=== PATIENT | female | born 1950 | race Caucasian/White ===

== ENCOUNTER 2016-08-05 15:04 | Inpatient (IN) ==
[2016-08-05] MEDS ORDERED: ASPIRIN PO STA (15:18)
--- NOTE | 2016-08-05 15:46 | ED EKG INTERP ---
EKG Interpretation - EKG Time of EKG reading by physician:: 15:22 EKG Read and Signed by:: Armen Beckwith EKG Interpretation (*Must complete 3 of following elements*): Abnormal (Minimal voltage critiria for LVH, may be normal varient, Borderline ECH\g) Rate: 89 Rhythm: Normal Sinu rhythm Comments: Borderline ECG Physician Attestation
[2016-08-05 15:56] LABS: BASO% 0.1 % (0.0-0.8); EOS# 0.01 X1000 (0.0-0.7); EOS% 0.1 % (0.0-10.0); HEMOGLOBIN 11.3 g/dL (12.0-16.0); IMM GRAN# 1.46 X1000 (0.0-0.04); IMM GRAN% 8.6 % (0.0-0.5); LYMPH# 0.51 X1000 (1.2-3.4); MANUAL DIFF NEEDED? NO; MCH 33.3 PG (27-31); MCHC 36.5 g/dL (33-37); MCV 91.4 FL (81-99); MONO# 1.34 X1000 (0.11-0.59); MONO% 7.9 % (1.7-9.3); MPV 12.1 FL (7.4-10.4); NEUT% 80.3 % (42.2-75.2); PLT 87 X1000 (130-400); RBC 3.39 XMIL (4.2-5.4)
--- NOTE | 2016-08-05 15:57 | Diag Imaging Result Document ---
PROCEDURE NAME: CHEST-2 VIEWS - 08/05/2016 CHEST, 2 VIEWS: COMPARISON: 09/24/2015. FINDINGS: The lungs are normally expanded and clear. Heart size and mediastinal contours are normal. No pneumothorax or pleural effusion. IMPRESSION: Negative exam.
--- NOTE | 2016-08-05 15:57 | EKG Report ---
Test Performed on : 08/05/2016 3:22:30 PM Test Reason : CHEST PAIN Blood Pressure : / mmHG Vent. Rate : 089 BPM Atrial Rate : 089 BPM P-R Int : 134 ms QRS Dur : 098 ms QT Int : 362 ms P-R-T Axes : 050 002 075 degrees QTc Int : 440 ms Normal sinus rhythm. Minimal voltage criteria for LVH, may be normal variant Borderline ECG When compared with ECG of 07-JAN-2016 12:36, Non-specific change in ST segment in Lateral leads Unconfirmed Result
[2016-08-05 16:05] LABS: URINE SOURCE CATH
[2016-08-05 16:17] LABS: INR 1.07 (0.86-1.15); PROTIME 14.2 Seconds (12.1-15.5)
[2016-08-05 16:18] LABS: PTT PL 30.6 Seconds (22.6-43.9)
[2016-08-05 16:38] LABS: BILIRUBIN URINE NEGATIVE (NEGATIVE); BLOOD URINE 4+ (NEGATIVE); COLOR YELLOW; GLUCOSE URINE NEGATIVE (NEGATIVE); LEUKOCYTES URINE 2+ (NEGATIVE); NITRITE URINE POSITIVE (NEGATIVE); PROTEIN URINE 1+(30 mg/dL) mg/dL (NEGATIVE); SP GRAVITY URINE 1.005; UROBILINOGEN URINE NORMAL
[2016-08-05 16:42] LABS: CLARITY VERY CLOUDY (CLEAR); URINE RBC TNTC /HPF (<10); URINE WBC TNTC /HPF (<10)
[2016-08-05 16:43] LABS: URINE CULTURE PL NEEDED? YES; URINE EPITHELIAL CELLS <10 /HPF (<10)
[2016-08-05 17:26] LABS: ALBUMIN 2.6 g/dL (3.5-5.0); MAGNESIUM 1.6 mg/dL (1.5-2.7); POTASSIUM 3.2 mmol/L (3.5-5.1); TOTAL BILIRUBIN 0.5 mg/dL (0.20-1.00); TOTAL PROTEIN 5.2 g/dL (6.3-8.3)
[2016-08-05 17:28] LABS: CALCIUM 8.7 mg/dL (8.8-10.2)
--- NOTE | 2016-08-05 17:42 | PROVIDER DOCUMENTATION ---
HPI-General Adult - History of Present Illness -Gen Adult Nature of Presenting Problems: PT is 66 Y/o F presents to the ED with the complain of feeling weak. Pt states that she fell from from bed week ago. Pt uses walker due to prior hip sx and back sx. Pt states she takes multiple pain meds and psych meds. Pt denies N/V/ D. Location of Pain/Injury: reports: generalized Pain Radiation: reports: no radiation Quality of Pain: reports: aching Severity: reports: mild Onset/Duration: reports: 1 week ago Timing: reports: still present Context/Activities at Onset: reports: none Modifying Factors: improves with: nothing Associated Symptoms: reports: weakness Similar Symptoms Previously?: Yes Recently seen or treated by another doctor?: Yes <Cintia Fowler - Last Filed: 08/05/16 17:56> <Himanshu Jensen - Last Filed: 08/05/16 19:19> - General Chief Complaint: Weakness Stated Complaint: weak Time Seen by Provider: 08/05/16 17:14 Allergies/Adverse Reactions: Patient Allergies Allergy/AdvReac Type Severity Reaction Status Date / Time olanzapine [From Zyprexa] AdvReac Unknown Verified 08/05/16 15:16 Home Medications: Home Medication List Medication Instructions Recorded Confirmed Last Taken Type Divalproex [Depakote] 1,500 mg PO QHS 09/23/15 01/03/16 01/02/16 History Duloxetine [Cymbalta] 60 mg PO BID 09/23/15 01/03/16 01/02/16 History Ibuprofen/Famotidine [Duexis 1 each PO BID 09/23/15 01/03/16 01/02/16 History 800-26.6 mg Tablet] Lubiprostone [Amitiza] 24 microgm PO BID 09/23/15 01/03/16 01/02/16 History Mv/FA/Dha/Epa/Fish/Jose/D3/Gink 1 each PO DAILY 09/23/15 01/03/16 01/02/16 History [Women 50 + Vitapak Combo Pack] [place]-3 Acid Ethyl Esters [Lovaza] 2 gm PO BID 09/23/15 01/03/16 01/02/16 History PRAVAstatin [Pravachol] 40 mg PO DAILY 05/09/0401/03/16 01/02/16 History Ropinirole HCl 5 mg PO HS 09/23/15 01/03/16 01/02/16 History Solifenacin Succinate [Vesicare] 10 mg PO DAILY 09/23/15 01/03/16 01/02/16 History Terbinafine [Lamisil] 250 mg PO DAILY 09/23/15 01/03/16 01/02/16 History Trazodone E.r. [Oleptro ER] 300 mg PO HS 09/23/15 01/03/16 01/02/16 History Walker [Ultra-Light Rollator] 1 each MC DAILY #1 each 09/23/15 01/03/16 Rx Albuterol 2.5MG/Ipratrop 0.5MG 3 ml INH Q4H PRN PRN #0 neb 09/28/15 01/03/16 Rx [Duoneb (A & A)] Buprenorphine [Butrans] 1 each TD DIRECTED #30 09/28/15 01/03/16 01/02/16 Rx patch.tdwk Hydrocodone/APAP 7.5 mg/325 mg 1 each PO Q4H PRN PRN #45 tablet 09/28/1501/02/16 Rx [[place]-7.5] Buspirone HCl [Buspar] 5 mg PO DAILY 01/03/16 01/03/16 01/02/16 History Olanzapine [Zyprexa] 5 mg PO HS 01/03/16 01/03/16 01/02/16 History Menthol/Camphor/Antiarth Cb#1 10 ml TP BID #1 cream.ml. 01/07/16 Unknown Rx [[place] Arthritis Rub Cream] Review of Systems - Adult - REVIEW OF SYSTEMS - ADULT Constitutional: reports: no symptoms reported Eyes: reports: no symptoms reported Ears, Nose, Mouth & Throat: reports: no symptoms reported Cardiovascular: reports: no symptoms reported Respiratory: reports: no symptoms reported Gastrointestinal: reports: no symptoms reported Genitourinary: reports: no symptoms reported Musculoskeletal: reports: muscle weakness. denies: back pain, joint pain Integumentary: reports: no symptoms reported Neurological: reports: no symptoms reported Psychiatric: reports: no symptoms reported Endocrine: reports: no symptoms reported Hematologic/Lymphatic: reports: no symptoms reported Allergic/Immunologic: reports: no symptoms reported All Other Systems: Reviewed and Negative <Cintia Fowler - Last Filed: 08/05/16 17:56> Past History - Adult - PAST MEDICAL HISTORY-ADULT Review of Records: reports: Nursing Assessment Review, Medications Reviewed, Social history reviewed & non-contributory. Major Childhood Illnesses: reports: denies history Cardiovascular: reports: HTN, hyperlipidemia Respiratory: reports: denies history Gastrointestinal: reports: GERD, IBS Obstetrical/Gynecological: reports: denies history Genitourinary: reports: denies history Musculoskeletal: reports: denies history Neurological: reports: denies history Psychiatric: reports: bipolar, depression Endocrine/Immune: reports: denies history Other Conditions: reports: denies history - PRIOR SURGERIES/PROCEDURES Surgical/Procedure History: reports: cholecystectomy, hysterectomy, joint replacement (L total hip), back/neck - IMMUNIZATION STATUS Childhood Immunizations: See Nurse Assessment Flu Vaccine: See Nurse Assessment - FAMILY HISTORY Family History: reviewed, not pertinent - SOCIAL HISTORY Smoking: cigarettes, less than 1 pack/day Provider spent 3-5 mins advising pt. on dangers of tobacco.: Discussed manners to quit use, and f/u contacts for add'l counseling. Substance Use: denies Living Situation: alone <Cintia Fowler - Last Filed: 08/05/16 17:56> Physical Exam-General - PHYSICAL EXAM-ADULT Initial Vital Signs Reviewed: Yes - CONSTITUTIONAL General Appearance: alert, no apparent distress. negative: appears well (ill in appearance) - EYES Eyes: PERRL/EOMI, pale conjunctivae - HEAD, EARS, NOSE, MOUTH & THROAT HENMT: normocephalic/atraumatic. negative: moist mucous membranes (dry) - NECK Neck: non-tender, full range of motion, supple - RESPIRATORY Respiratory: chest non-tender, lungs clear, normal breath sounds, no pleuratic chest pain, no respiratory distress, no accessory muscle use - CARDIOVASCULAR Cardiovascular: normal peripheral pulses, regular rate, rhythm, no edema, no gallop, no JVD, no murmur - GASTROINTESTINAL (ABDOMEN) Abdominal Exam: normal bowel sounds, non tender, soft - MUSCULOSKELETAL Back Exam: normal inspection, no CVA tenderness, no vertebral tenderness Extremity: normal range of motion, no pedal edema, no calf tenderness Peripheral Pulses: dorsalis-pedis (R): 2+, dorsalis-pedis (L): 2+ - SKIN Integumentary: normal turgor, pallor - NEUROLOGIC Neurologic: grossly normal - PSYCHIATRIC Psych/Mental Status: normal mood/affect, oriented x 3 <Raine Fowleromi - Last Filed: 08/05/16 17:56> Progress - PLAN OF CARE/RESULTS Progress/Plan/Lab Results: Laboratory Tests 08/05/16 08/05/16 08/05/16 15:44 15:44 15:44 WBC RBC Hgb Hct MCV MCH MCHC RDW Std Deviation Plt Count MPV Immature Gran % (Auto) Neut % (Auto) Lymph % (Auto) [place] % (Auto) Eos % (Auto) Baso % (Auto) Immature Gran # (Auto) Neut # (Auto) Lymph # (Auto) [place] # (Auto) Eos # (Auto) Baso # (Auto) PT INR APTT (Factor Assay) D-Dimer Sodium 116 L* Potassium 3.2 L Chloride 77 L Carbon Dioxide 26 Anion Gap 13 BUN 24 H Creatinine 1.4 H Estimated GFR/1.73 m2 38 BUN/Creatinine Ratio 17 Glucose 99 Calculated Osmolality 239 Calcium 8.7 L Magnesium 1.6 Total Bilirubin 0.50 AST 36 H ALT 17 Alkaline Phosphatase 131 H Creatine Kinase 53 Troponin T < 0.010 Vxa-F-Ufbvqawblgb Pept 3346 H Total Protein 5.2 L Albumin 2.6 L Globulin 3.0 Albumin/Globulin Ratio 1.0 Urine Source Urine Color Urine Clarity Urine pH Ur Specific [place] Urine Protein Urine Ketones Urine Blood Urine Nitrite Urine Bilirubin Urine Urobilinogen Urine Microscopic RBC Urine WBC Urine Microscopic WBC Ur Epithelial Cells Urine Bacteria Urine Glucose 08/05/16 08/05/16 08/05/16 15:44 15:44 15:53 WBC 16.99 H RBC 3.39 L Hgb 11.3 L Hct 31.0 L MCV 91.4 MCH 33.3 H MCHC 36.5 RDW Std Deviation 11.2 L Plt Count 87 L MPV 12.1 H Immature Gran % (Auto) 8.6 H Neut % (Auto) 80.3 H Lymph % (Auto) 3.0 L [place] % (Auto) 7.9 Eos % (Auto) 0.1 Baso % (Auto) 0.1 Immature Gran # (Auto) 1.46 H Neut # (Auto) 13.65 H Lymph # (Auto) 0.51 L [place] # (Auto) 1.34 H Eos # (Auto) 0.01 Baso # (Auto) 0.02 PT 14.2 INR 1.07 APTT (Factor Assay) 30.6 D-Dimer 2.45 H Sodium Potassium Chloride Carbon Dioxide Anion Gap BUN Creatinine Estimated GFR/1.73 m2 BUN/Creatinine Ratio Glucose Calculated Osmolality Calcium Magnesium Total Bilirubin AST ALT Alkaline Phosphatase Creatine Kinase Troponin T Liq-P-Mscryaxgoso Pept Total Protein Albumin Globulin Albumin/Globulin Ratio Urine Source CATH Urine Color YELLOW Urine Clarity VERY CLOUDY A Urine pH 6.0 Ur Specific [place] 1.005 Urine Protein 1+(30 mg/dL) A Urine Ketones NEGATIVE Urine Blood 4+ Urine Nitrite POSITIVE A Urine Bilirubin NEGATIVE Urine Urobilinogen NORMAL Urine Microscopic RBC TNTC A Urine WBC 2+ A Urine Microscopic WBC TNTC A Ur Epithelial Cells <10 Urine Bacteria 4+ Urine Glucose NEGATIVE Orders Category Date Time Status Cardiac Monitoring DIRECTED Care 08/05/16 15:18 Active CHEST-2 VIEWS [RAD] Stat Exams 08/05/16 15:18 Completed CBC WITH ELECTRONIC DIFF [HEME] Stat Lab 08/05/16 15:44 Completed CK PROFILE [SP CHEM] Stat Lab 08/05/16 15:44 Completed COMPREHENSIVE METABOLIC PANEL [CHEM] Stat Lab 08/05/16 15:44 Completed D-DIMER PL [COAG] Stat Lab 08/05/16 15:44 Completed Depakote [VALPROIC ACID] [TDM] Stat Lab 08/05/16 15:44 Received MAGNESIUM [CHEM] Stat Lab 08/05/16 15:44 Completed PRO B-NATRIURETIC PEPTIDE Stat Lab 08/05/16 15:44 Completed PROTIME WITH INR PL [COAG] Stat Lab 08/05/16 15:[address] [COAG] Stat Lab 08/05/16 15:44 Completed TROPONIN T Stat Lab 08/05/16 15:44 Completed UA [URINALYSIS PL W/POSS RFLX CULT] [URINALYSIS] Stat Lab 08/05/16 15:53 Completed URINE CULTURE [RM] Routine Lab 08/05/16 16:43 Ordered Aspirin Med 08/05/16 15:18 Discontinued 325 mg PO STAT STA EKG [EKG] Stat Ther 08/05/16 15:18 Draft Vital Signs - 24 hr 08/05/16 08/05/16 15:13 16:34 Temperature 97 F L Pulse Rate 90 86 Respiratory 20 18 Rate Blood Pressure 131/69 112/045 O2 Sat by Pulse 98 99 Oximetry - XRAY 1 XRAY: Bilateral XRAY Study: Chest Impression: Normal XRAY Interpretation: negative exam - CONSULTS/PCP/HOSPITALIST Notification #1 *Consult/PCP/Hospitalist*: Dr. Swift Time Discussed: 17:54 (Dr. Swift states will see in ED ) Reason/Comments: Dr. Beckwith consults with Dr. Swift about Pt Consult Disposition: Will see in ED - CHANGE OF SHIFT REPORT (ED Provider) Report Given and Care Transferred to:: Dr. Jean Time of Transfer: 17:56 Items Pending: Labs <Cintia Fowler - Last Filed: 08/05/16 17:56> Departure <Cintia Fowler - Last Filed: 08/05/16 17:56> - Departure Time of Disposition Order: 19:17 Certified Medical Emergency: Emergent <Himanshu Jensen - Last Filed: 08/05/16 19:19> - Departure DIAGNOSIS: Generalized weakness, Hyponatremia UTI (urinary tract infection) Qualifiers: Urinary tract infection type: site unspecified Hematuria presence: without hematuria Qualified Code(s): N39.0 - Urinary tract infection, site not specified Disposition: ADMITTED INPATIENT 09 Condition: Good Referrals: None,PCP [Primary Care Provider] - Attestation - Scribe Verification/Attestation Scribe:: Cintia Fowler Acting as Scribe for:: Armen Beckwith Scribe documention review:: This chart was documented by a scribe and accurately reflects the service the provider performed and the decisions made by the provider. - Scribe Verification/Attestation #2 Shift Change Time: 17:56 Scribe Name: Himanshu Jensen Acting as Scribe for:: Brendon Jean <Cintia Fowler - Last Filed: 08/05/16 17:56> - Scribe Verification/Attestation Scribe:: Himanshu Jensen Acting as Scribe for:: Brendon Jean Scribe documention review:: This chart was documented by a scribe and accurately reflects the service the provider performed and the decisions made by the provider. <Himanshu Jensen - Last Filed: 08/05/16 19:19> Physician Attestation
[2016-08-05] MEDS ORDERED: LEVAQUIN PO ONE (18:08)
[2016-08-05] MEDS: NS 1,000 ML IV SCH (18:15)
[2016-08-05] MEDS ORDERED: NON-FORMULARY MED (Buprenorphine [Butrans] 1 EACH) TD SCH (18:15)
[2016-08-05] MEDS ORDERED: AMITIZA PO SCH (21:00)
[2016-08-05] MEDS ORDERED: DEPAKOTE PO SCH (21:00)
[2016-08-05 21:11] LABS: URINE SOURCE CATH
[2016-08-05 21:19] LABS: BILIRUBIN URINE NEGATIVE (NEGATIVE); BLOOD URINE 3+ (NEGATIVE); CLARITY VERY CLOUDY (CLEAR); COLOR YELLOW; GLUCOSE URINE NEGATIVE (NEGATIVE); LEUKOCYTES URINE 2+ (NEGATIVE); NITRITE URINE POSITIVE (NEGATIVE); PROTEIN URINE 1+(30 mg/dL) mg/dL (NEGATIVE); SP GRAVITY URINE 1.005; UROBILINOGEN URINE NORMAL
[2016-08-05] MEDS: LOVAZA PO SCH (21:20)
[2016-08-05 22:10] LABS: URINE RBC TNTC /HPF (<10)
[2016-08-05 22:12] LABS: URINE CULTURE PL NEEDED? YES; URINE EPITHELIAL CELLS <10 /HPF (<10); URINE WBC TNTC /HPF (<10)
[2016-08-06] MEDS: NS 1,000 ML IV SCH ×4 (01:00→22:05)
[2016-08-06 06:37] LABS: HEMATOCRIT 29.5 % (37.0-47.0); HEMOGLOBIN 10.5 g/dL (12.0-16.0); MCH 32.5 PG (27-31); MCHC 35.6 g/dL (33-37); MCV 91.3 FL (81-99); MPV 12.6 FL (7.4-10.4); RBC 3.23 XMIL (4.2-5.4)
[2016-08-06 06:38] LABS: CALCIUM 8.2 mg/dL (8.8-10.2)
[2016-08-06 06:42] LABS: POTASSIUM 2.6 mmol/L (3.5-5.1)
[2016-08-06] MEDS: LOVAZA PO SCH ×2 (08:49→22:04)
[2016-08-06] MEDS ORDERED: KLOR-CON PO ONE (11:25)
[2016-08-06] MEDS ORDERED: VITAMIN D PO SCH (11:30)
[2016-08-06] MEDS: AMITIZA PO SCH ×2 (12:27→18:04)
[2016-08-06] MEDS: POTASSIUM CHLORIDE 20 MEQ/SWI 100 ML IV SCH ×2 (12:27→17:33)
--- NOTE | 2016-08-06 14:18 | PROGRESS NOTE ---
DATE: 08/06/2016 SUBJECTIVE: The patient is feeling a little bit better. She denies any cough and congestion currently. She denies any headaches, blurred vision. She denies any focalized numbness, tingling, and weakness. OBJECTIVE: Vital Signs: Reviewed. Temperature 97 degrees, pulse 95, respiratory 18, BP 119/45, saturation 95% on room air. General: Patient well developed, well nourished. She is currently in no real respiratory distress. She is awake, alert. Neck: Supple. CV: Regular rate. Chest: Relatively clear. Abdomen: Soft. Extremities: Moves all extremities. Neurologic: No changes. LABORATORY DATA: WBC 13, hemoglobin and hematocrit 10 and 29. Sodium 121, potassium 2.6, creatinine 1.3. Calcium 8.2. UA abnormal. ASSESSMENT: 1. Urinary tract infection. 2. Hypokalemia replace and recheck. We will replace IV and p.o. 3. Hyponatremia. Sodium continues to improve currently 121, was 116 on admit. 4. Leukocytosis improving, uncertain etiology likely secondary to acute bronchitis or her urinary tract infection for which she is on Levaquin. 5. Anemia of chronic disease. PLAN: We will move her out to the floor. She unfortunately is on several psychiatric medications that certainly could drop her sodium levels in addition to her psychogenic polydipsia. We will continue to follow. Her Depakote certainly could cause low sodium as can Remeron. We will hold this for now. We will continue her Movantik and her pain medication. We will continue Colace. Trazodone also can cause low sodium. We will hold this for now. She currently is on Cymbalta and Requip, which also can cause low sodium. We will hold each of these for now.
[2016-08-06] MEDS ORDERED: POTASSIUM CHLORIDE 20 MEQ/SWI 100 ML IV ONE (16:00)
--- NOTE | 2016-08-06 17:02 | HISTORY AND PHYSICAL ---
DATE OF : 1950. DATE OF ADMISSION: 08/05/2016. CHIEF COMPLAINT: Generalized weakness, states "I am weak all over." HISTORY OF PRESENTING ILLNESS: This is a 66-year-old female who presented to [facility] emergency room with complaints of feeling generalized weakness, stating "I am weak all over." States that she had fallen from her bed approximately a week ago and uses a walker due to a prior hip surgery and back surgery. Denied any nausea, vomiting, or diarrhea. Workup in the emergency room showed a sodium of 116, potassium 3.2, chloride 77. BUN was 24 with a creatinine of 1.4. She had a proBNP of 3,346, a white blood cell count of 16.99, a urinalysis that had positive nitrites, 2+ white blood cells, and 4+ bacteria. So, she is being admitted to the medical floor for further evaluation and treatment. PAST MEDICAL HISTORY: 1. Hypertension. 2. Hyperlipidemia. 3. Gastroesophageal reflux disease. 4. Irritable bowel. 5. Bipolar. 6. Depression. 7. Pelvic fracture. 8. Restless legs syndrome. 9. History of anorexia and bulimia. PAST SURGICAL HISTORY: 1. Cholecystectomy. 2. Hysterectomy. 3. Total hip. 4. Back and neck surgery. FAMILY HISTORY: Noncontributory. SOCIAL HISTORY: She is smoking about a half a pack of cigarettes a day and has done so for about 20 years. Denies any illicit drugs or alcohol use and currently living alone. ALLERGIES: Olanzapine. HOME MEDICATIONS: We will hold her Cymbalta 120 mg p.o. daily. 1. Ibuprofen 800 mg p.r.n. 2. Remeron 15 mg p.o. at bedtime. 3. Trazodone ER 300 mg p.o. at bedtime. 4. Citracal. 5. Vitamin D 200/251 p.o. daily. 6. Depakote 2000 mg p.o. daily. 7. Docusate sodium 1 p.o. daily. 8. Vitamin D2 50,000 units as directed. 9. Hydrocodone 7.5, 1 p.o. p.r.n. 10. Movantik 225 mg p.o. daily. 11. Lovaza 4 g p.o. daily. 12. Prilosec 40 mg p.o. daily. 13. Pravachol 40 mg p.o. daily. 14. 5 mg p.o. at bedtime. LABORATORY DATA: CBC: Showed a white blood cell count of 16.99, a hemoglobin of 11.3, hematocrit 31, platelets 87,000. Cardiac enzymes: PT and INR of 14.2 and 1.07 with a D-dimer of 2.45. Chem: Sodium of 116 potassium 3.2 chloride 77, CO2 26, BUN of 24, creatinine 1.4, glucose 99, magnesium 1.6. Creatine kinase of 53, troponin less than 0.010. Pro BMP of 3346. Urinalysis: With positive nitrites, 2+ white blood cells, 4+ bacteria. Valproic acid level: 58.40. DIAGNOSTIC STUDIES: Chest x-ray: Negative. EKG: Showed normal sinus rhythm at 89. REVIEW OF SYSTEMS: She denies any fever, chills, blurred vision, dizziness, chest pain, coughing, shortness of breath. She denied any constipation, diarrhea, burning, or hurting with urination. PHYSICAL EXAMINATION: VITALS: On arrival, she had a temperature of 97 degrees, pulse 90, respirations 20, blood pressure 131/69, saturating 98% on room air. GENERAL: This is a 66-year-old female lying in the bed. Answers questions appropriately. HEENT: Normocephalic and atraumatic. Pupils are equal, round, reactive to light. Extraocular movements are intact. Oropharynx and nares are clear. NECK: Supple. LUNGS: Clear to auscultation bilaterally with equal lung expansion and chest wall movement. HEART: With regular rate and rhythm. No murmurs, rubs, or gallops. ABDOMEN: Soft, nontender, nondistended. Bowel sounds are present x4 quadrants. EXTREMITIES: There is no clubbing, cyanosis, or edema. NEUROLOGICAL: The cranial nerves 2-12 appear grossly intact. ASSESSMENT: 1. Hyponatremia. 2. Acute kidney injury. 3. Urinary tract infection. 4. Hypertension. 5. History of bipolar depression. PLAN: 1. We are going to admit her to the Intensive Care Unit . 2. Placed on a regular diet. 3. Will obtain a urine culture. 4. Place her on normal saline at 150 mL an hour, Levaquin 500 mg p.o. every 24 hours. 5. Recheck CBC and a BMP in the a.m. 6. We will supplement her potassium. 7. Recheck labs. Dictated by VAN Graham for Jarret Swift MD
[2016-08-06] MEDS: LEVAQUIN PO SCH (18:34)
[2016-08-06 19:23] LABS: CALCIUM 8.4 mg/dL (8.8-10.2); POTASSIUM 3.7 mmol/L (3.5-5.1); TOTAL BILIRUBIN 0.3 mg/dL (0.20-1.00); TOTAL PROTEIN 4.7 g/dL (6.3-8.3)
[2016-08-06] MEDS: DEPAKOTE PO SCH (21:14)
[2016-08-06] MEDS: REQUIP PO SCH (21:15)
[2016-08-07] MEDS: NS 1,000 ML IV SCH ×4 (04:00→23:29)
[2016-08-07] MEDS: MOVANTIK PO SCH (06:25)
[2016-08-07] MEDS: PRILOSEC PO SCH (06:25)
[2016-08-07 06:41] LABS: CALCIUM 8.4 mg/dL (8.8-10.2); POTASSIUM 3.7 mmol/L (3.5-5.1)
[2016-08-07] MEDS: DUONEB (A & A) INH PRN (08:08)
[2016-08-07] MEDS: LOVAZA PO SCH ×2 (08:37→22:19)
[2016-08-07] MEDS: AMITIZA PO SCH ×2 (08:38→17:45)
[2016-08-07] MEDS: CITRACAL + D PO SCH (08:38)
[2016-08-07] MEDS: COLACE PO SCH (08:38)
[2016-08-07] MEDS ORDERED: LOVAZA PO SCH (09:00)
--- NOTE | 2016-08-07 10:51 | PROGRESS NOTE ---
DATE: 08/07/2016 SUBJECTIVE: The patient notes she is feeling a little bit better this morning. She is trying to eat breakfast and has currently eaten about 50% of her breakfast. She denies any chest pain, palpitations. Denies any fevers or chills. OBJECTIVE: Vital Signs: Reviewed. Temperature 98.1 degrees, pulse 105, respiratory 18, blood pressure 137/67, sat 95% on room air. General: Patient is well developed, well nourished. She is currently in no real respiratory distress. She is awake, alert. She is oriented. She is slow to respond, but does answer questions appropriately. HEENT: Normocephalic, atraumatic. Pupils equal, round, and reactive to light. Neck: Supple. Cardiovascular: Regular rate. Chest: Relatively clear. Abdomen: Soft, nondistended. Extremities: Moves all extremities. Neurologic: No changes. DIAGNOSTIC DATA: WBCs improving at 13. Hemoglobin and hematocrit stable at 10 and 29. Sodium better at 125, creatinine stable at 1.4. ASSESSMENT: 1. Hyponatremia. Continues to improve slightly. We will decrease her IV fluids to 75, to see if this will encourage her to eat and drink a little bit better. We will recheck in the a.m. 2. Acute renal failure. Serum creatinine is 1.4. This is slightly higher than her baseline of a year ago in December of 2015 and 0.9. Uncertain if this is new or if she has gradually declined. Will continue to follow. 3. Hypertension. 4. Bipolar depression. 5. Psychogenic polydipsia. PLAN: We will continue to follow. We will continue to hold her psych medications until her sodium levels have improved. We will also get an echo now that she is more stable, given her B- type natriuretic peptide was elevated recently.
[2016-08-07] MEDS: DURAGESIC 12 MICROGM/HR PATCH TD SCH (15:06)
[2016-08-07] MEDS: NICODERM PATCH TD PRN (15:07)
[2016-08-07 16:16] LABS: POTASSIUM 3.9 mmol/L (3.5-5.1)
[2016-08-07] MEDS: LEVAQUIN PO SCH (17:45)
[2016-08-07] MEDS: REQUIP PO SCH (22:16)
[2016-08-07] MEDS: PRAVACHOL PO SCH (22:17)
[2016-08-07] MEDS: DEPAKOTE PO SCH (22:18)
[2016-08-08 00:05] LABS: CALCIUM 8.9 mg/dL (8.8-10.2); POTASSIUM 3.5 mmol/L (3.5-5.1)
[2016-08-08] MEDS: PRILOSEC PO SCH (06:22)
[2016-08-08] MEDS: MOVANTIK PO SCH (06:25)
[2016-08-08 06:30] LABS: HEMATOCRIT 28.7 % (37.0-47.0); HEMOGLOBIN 10.4 g/dL (12.0-16.0); MCH 32.7 PG (27-31); MCHC 36.2 g/dL (33-37); MCV 90.3 FL (81-99); MPV 11.6 FL (7.4-10.4); PLT 94 X1000 (130-400); RBC 3.18 XMIL (4.2-5.4)
[2016-08-08 06:48] LABS: ALBUMIN 1.6 g/dL (3.5-5.0); CALCIUM 8.9 mg/dL (8.8-10.2); MAGNESIUM 1.8 mg/dL (1.5-2.7); POTASSIUM 3.7 mmol/L (3.5-5.1); TOTAL BILIRUBIN 0.4 mg/dL (0.20-1.00); TOTAL PROTEIN 4.3 g/dL (6.3-8.3)
[2016-08-08 06:58] LABS: BANDS 10 % (0-1); LYMPHS 2 % (21-51); MONO 2 % (1-9)
[2016-08-08] MEDS: LOVAZA PO SCH ×2 (08:16→20:36)
[2016-08-08] MEDS: AMITIZA PO SCH ×2 (08:16→16:45)
[2016-08-08] MEDS: SEPTRA DS PO SCH ×2 (08:16→20:37)
[2016-08-08] MEDS: CITRACAL + D PO SCH (08:16)
[2016-08-08] MEDS: COLACE PO SCH (08:16)
--- NOTE | 2016-08-08 08:18 | PROGRESS NOTE ---
DATE: 08/08/2016 SUBJECTIVE: Patient notes that she is feeling better. She is asking to go home. States that she is back to her baseline. Denies any cough, congestion. Denies any fevers or chills. PHYSICAL: Vital Signs: Temperature 98, pulse 95-100, respiratory rate 18, BP 143/48. Saturation 99% on 2 L. General: Patient is well developed, female who is currently in no real respiratory distress. She is much more awake, alert, oriented than on initial presentation. HEENT: Normocephalic, atraumatic. Neck: Supple. CV: Regular rate. Chest: Relatively clear. Abdomen: Soft, nondistended. Extremities: Moves all extremities well. Neurologic: No changes. DIAGNOSTIC DATA: WBCs 40, hemoglobin and hematocrit 10 and 28. Sodium 129, creatinine 1.6. BUN 28. Alkaline phosphatase 93. BNP 6353. Albumin 1.6. ASSESSMENT AND PLAN: 1. Severe protein calorie malnutrition. We will add Ensure. 2. Leukocytosis. Patient had a gram-negative neelam urinary infection growing that finally resulted out this morning with E. Coli, resistant to Levaquin, which is the antibiotic she was on. We will place her on Bactrim that has relatively good sensitivity to. However, with her white count being as markedly elevated, we will also add imipenem this morning and will continue to follow. 3. Hyponatremia, continues to improve. Likely a combination of some of her psychiatric medications, as well as her psychogenic polydipsia. 4. Psychogenic polydipsia improved. 5. Hypertension, stable. 6. Hyperlipidemia. 7. Bipolar. 8. Depression. 9. Elevated BNP. Patient has no history of congestive heart failure to my knowledge. We will check an echo, chest x-ray and give her IV Lasix this morning and saline lock her. Will not start IV Lasix yet, given she still is hyponatremic and she seems to be tolerating her current situation quite well without any respiratory issues.
[2016-08-08] MEDS: DUONEB (A & A) INH PRN ×2 (08:36→15:23)
[2016-08-08] MEDS: PRIMAXIN 500 MG in NS 100 ML IV SCH ×2 (09:07→16:45)
--- NOTE | 2016-08-08 11:08 | Diag Imaging Result Document ---
PROCEDURE NAME: CHEST-2 VIEWS - 08/08/2016 2 VIEWS OF THE CHEST: FINDINGS: The inspiration is suboptimal. There is opacity in the right lower lobe and left lower lobe. This was not present on 08/05/2016. IMPRESSION: Bibasilar atelectasis versus pneumonia.
[2016-08-08] MEDS: NORCO-7.5 PO PRN ×2 (11:58→20:37)
--- NOTE | 2016-08-08 14:57 | ECHO REPORT ---
ORDER DATE: 08/08/2016 ECHOCARDIOGRAPHIC MEASUREMENTS: 1. Interventricular septum 1.0. Left ventricular posterior wall 1.1. Diastolic diameter 5.0. Left atrium 3.3. Aorta 2.2. Technically suboptimal study. Poor apical windows. 2. Normal left ventricular cavity size. Estimated ejection fraction of 60-65%. Aortic valve leaflets are trileaflet. Pulmonic valve was normal. Tricuspid valve was normal. Mitral valve was normal. 3. Peak velocity across the aortic valve less than 2 m/sec. There is no aortic stenosis or regurgitation. There is mild mitral regurgitation. Trace tricuspid regurgitation. Peak velocity across the tricuspid valve was 2.1 m/sec. There is trace pulmonary regurgitation. 4. There is no pericardial effusion or obvious intracardiac mass or thrombus.
[2016-08-08] MEDS: LEVAQUIN PO SCH ×2 (16:45→17:52)
[2016-08-08] MEDS ORDERED: NS 500 ML ONE (17:58)
[2016-08-08] MEDS: INVANZ 1 GM/NS 50 ML IV SCH (18:41)
[2016-08-08] MEDS: PRAVACHOL PO SCH (20:37)
[2016-08-08] MEDS: REQUIP PO SCH (20:37)
[2016-08-08] MEDS: DEPAKOTE PO SCH (20:38)
[2016-08-08 21:06] LABS: ALBUMIN 1.7 g/dL (3.5-5.0); CALCIUM 8.9 mg/dL (8.8-10.2); POTASSIUM 3.6 mmol/L (3.5-5.1); TOTAL BILIRUBIN 0.4 mg/dL (0.20-1.00)
[2016-08-08 21:32] LABS: HEMATOCRIT 30.2 % (37.0-47.0); HEMOGLOBIN 11.2 g/dL (12.0-16.0); RBC 3.37 XMIL (4.2-5.4)
[2016-08-08 21:33] LABS: MCH 33.2 PG (27-31); MCHC 37.1 g/dL (33-37); MCV 89.6 FL (81-99); MPV 11.4 FL (7.4-10.4)
[2016-08-08] MEDS ORDERED: TYLENOL PO PRN (23:40)
[2016-08-09] MEDS: PRILOSEC PO SCH (06:13)
[2016-08-09] MEDS: MOVANTIK PO SCH (06:13)
[2016-08-09 06:57] LABS: ALBUMIN 1.6 g/dL (3.5-5.0); CALCIUM 9.1 mg/dL (8.8-10.2); MAGNESIUM 1.8 mg/dL (1.5-2.7); POTASSIUM 3.9 mmol/L (3.5-5.1); TOTAL BILIRUBIN 0.4 mg/dL (0.20-1.00); TOTAL PROTEIN 4.8 g/dL (6.3-8.3)
[2016-08-09 07:07] LABS: HEMATOCRIT 29.8 % (37.0-47.0); HEMOGLOBIN 10.7 g/dL (12.0-16.0); MCH 32.3 PG (27-31); MCHC 35.9 g/dL (33-37); MPV 11.3 FL (7.4-10.4); RBC 3.31 XMIL (4.2-5.4)
[2016-08-09 07:11] LABS: INR 1.1 (0.86-1.15); PROTIME 14.5 Seconds (12.1-15.5)
[2016-08-09] MEDS: DUONEB (A & A) INH PRN (07:49)
[2016-08-09] MEDS ORDERED: NS 500 ML ONE (07:56)
[2016-08-09] MEDS: NORCO-7.5 PO PRN (08:35)
[2016-08-09] MEDS: LOVAZA PO SCH ×2 (10:26→20:28)
[2016-08-09] MEDS: CITRACAL + D PO SCH (10:27)
[2016-08-09] MEDS: AMITIZA PO SCH ×2 (10:27→18:24)
[2016-08-09] MEDS: SEPTRA DS PO SCH ×2 (10:28→20:28)
[2016-08-09] MEDS: COLACE PO SCH (10:28)
[2016-08-09] MEDS: NICODERM PATCH TD PRN (10:29)
--- NOTE | 2016-08-09 10:41 | Diag Imaging Result Document ---
PROCEDURE NAME: CHEST-PORTABLE - 08/09/2016 PORTABLE CHEST: COMPARISON: 08/08/2016. FINDINGS: A right-sided PICC line has been placed. The tip overlies the distal superior vena cava near the junction with the right atrium. There are infiltrates and atelectasis in the left base and I believe there is a tiny left effusion. The heart is not enlarged. The vessels are not distended. IMPRESSION: Placement of a right-sided PICC line. This is in good position.
--- NOTE | 2016-08-09 17:11 | PROGRESS NOTE ---
DATE: 08/09/2016 SUBJECTIVE: The patient states that she feels better. She sat on the side of the bed with Physical Therapy. She feels like she had better participation in physical therapy, although she did get tired after. She denies any cough, congestion, fever, chills. OBJECTIVE: Vital Signs: Blood pressure is 154/44 with a heart rate of 97, respirations are 22, temperature is 98.5 degrees oral with oxygen saturations of 96-98% on 2 L nasal cannula. Cardiovascular: Regular rate and rhythm. S1 and S2 appreciated. Pulmonary: Breath sounds are relatively clear, chest rises and falls symmetrically with no increased work of breathing noted. Gastrointestinal: Abdomen is soft, nontender, nondistended with bowel sounds in all 4 quadrants. Extremities: No clubbing, cyanosis, or edema. Calves nontender. Pulses are palpable x4. DIAGNOSTICS: WBC is 43 with a hemoglobin of 10, hematocrit 29.8, platelets of 90,000. Sodium is 125, potassium 3.9, BUN 38, creatinine 1.8, with a glucose of 102. ProBNP is 7950. ASSESSMENT AND PLAN: 1. Severe protein calorie malnutrition. We will continue with Ensure and to encourage p.o. intake at meals. 2. Leukocytosis. She did have a Escherichia coli urinary tract infection that was resulted yesterday. It was resistant to Levaquin. We did place her on Bactrim. Due to her increased white count, imipenem was added and white counts have begun to decline today. We will continue to monitor. 3. Hyponatremia. This continues to improve. This is likely a combination of her psychiatric medications as well as psychogenic polydipsia. 4. Psychogenic polydipsia, improved. 5. Hypertension, stable. 6. Bipolar disorder. 7. Depression. 8. Elevated proBNP. Echocardiogram did not reveal any congestive heart failure. We will continue to monitor her chest x-ray as well as her input and output status as best we can. She has been negative every day as she continues to be hyponatremic, and she is having no respiratory issues. We will hold off on giving Lasix. Further treatments . 9. She is wheezing. Some treatments have been p.r.n. We will schedule treatments q.4 hours and continue to follow. Dictated by VAN Mccarty for Jarret Swift MD
[2016-08-09] MEDS: INVANZ 1 GM/NS 50 ML IV SCH (18:24)
[2016-08-09] MEDS: DUONEB (A & A) INH SCH ×2 (19:27→23:18)
[2016-08-09] MEDS: NS 1,000 ML IV SCH (20:27)
[2016-08-09] MEDS: REQUIP PO SCH (20:28)
[2016-08-09] MEDS: PRAVACHOL PO SCH (20:28)
[2016-08-09] MEDS: DEPAKOTE PO SCH (20:28)
[2016-08-10] MEDS: DUONEB (A & A) INH SCH ×5 (03:24→20:26)
[2016-08-10] MEDS: MOVANTIK PO SCH (06:19)
[2016-08-10] MEDS: PRILOSEC PO SCH (06:19)
[2016-08-10 06:49] LABS: HEMATOCRIT 27.4 % (37.0-47.0); MCH 32.8 PG (27-31); MCHC 36.5 g/dL (33-37); MCV 89.8 FL (81-99); MPV 11.1 FL (7.4-10.4); RBC 3.05 XMIL (4.2-5.4)
[2016-08-10 07:05] LABS: ALBUMIN 1.5 g/dL (3.5-5.0); CALCIUM 8.3 mg/dL (8.8-10.2); MAGNESIUM 1.9 mg/dL (1.5-2.7); TOTAL BILIRUBIN 1.2 mg/dL (0.20-1.00); TOTAL PROTEIN 4.3 g/dL (6.3-8.3)
[2016-08-10] MEDS: CITRACAL + D PO SCH (09:35)
[2016-08-10] MEDS: LOVAZA PO SCH ×2 (09:35→20:13)
[2016-08-10] MEDS: AMITIZA PO SCH ×2 (09:35→17:14)
[2016-08-10] MEDS: SEPTRA DS PO SCH (09:36)
[2016-08-10] MEDS: COLACE PO SCH (09:36)
[2016-08-10] MEDS: NS 1,000 ML IV SCH ×4 (09:45→21:43)
[2016-08-10] MEDS: BLISTEX MEDICATED BERRY LIP BALM TOP PRN (11:23)
--- NOTE | 2016-08-10 12:59 | PROGRESS NOTE ---
DATE: 08/10/2016 SUBJECTIVE: The patient does not feel well. She has abdominal complaints, lot of burping, some nausea but no deandre emesis. Her breathing is overall improved. She still has a little bit of cough but no other major issues. OBJECTIVE: Heart rate 94, respiratory 16, temperature 99.1 degrees, 154/54, 95% on 2 L. Generally: Ill appearing. Just very weak and tired female in no acute distress. Cardiovascular: Regular rate and rhythm. Did not appreciate displaced PMI. Pulmonary: Diffuse rhonchi with normal respiratory effort. GI: Soft, nontender, no masses were appreciated. She actually had some mild tenderness throughout. Bowel sounds were positive if not hyperactive. No hepatosplenomegaly. She had 1+ pitting edema bilateral right greater than left. 2+ dorsalis people pulses. LABORATORY DATA: White count is down to 31,000, hemoglobin and hematocrit 10 and 27 and platelet count has dropped to 52. PROBLEM LIST: 1. She ESBL UTI resistant to Levaquin. She was on Bactrim. We stopped that and changed her to Invanz based on sensitivities and the plan is for IV antibiotics at the rehab, the Invanz once daily. 2. Acute kidney injury. Unclear what the source of that is. She had been on Bactrim was not a clear source of issue. She has chronic renal insufficiency probably stage 2 at least so we will check urine electrolytes. Continue hydration, check renal ultrasound and follow. She has a Hardwick catheter in place. 3. A psychogenic polydipsia that has overall improved. Her hyponatremia is improved as well. I am not sure if we may want to try some Samsca. Again it is polydipsia and not SIADH. It may not have much effect but she is a little bit overloaded despite her renal issues. We will continue to monitor that. 4. Abdominal discomfort. We will continue to monitor. She does have a mild elevation in her liver enzymes. May just switch her to an abdominal ultrasound just to see if there is anything going on from that standpoint. Repeat her labs tomorrow. 5. Disposition is rehab. We discussed with the daughter and patient that she will eventually need to go to rehab. The daughter is very adamant, or sister I think it is very adamant that she is not ready to go to rehab right now. We did discuss she had medical issues that are her keeping her here actively and they seemed in agreement with that for the time being.
[2016-08-10] MEDS: DURAGESIC 12 MICROGM/HR PATCH TD SCH (17:14)
[2016-08-10] MEDS: INVANZ 1 GM/NS 50 ML IV SCH (17:14)
[2016-08-10 18:19] LABS: UR CREAT RANDOM 28.8 mg/dL (11-20); UR PROT RANDOM 122.1 mg/dL
[2016-08-10] MEDS: PRAVACHOL PO SCH (20:12)
[2016-08-10] MEDS: REQUIP PO SCH (20:12)
[2016-08-10] MEDS: DEPAKOTE PO SCH (20:13)
[2016-08-10] MEDS ORDERED: LASIX IV ONE (20:22)
--- NOTE | 2016-08-10 22:58 | Diag Imaging Result Document ---
PROCEDURE NAME: US ABDOMEN-COMPLETE - 08/10/2016 STUDY: Abdominal ultrasound. Normal pancreas. No aneurysmal dilatation to the abdominal aorta. Normal inferior vena cava. No focal hepatic abnormality. The gallbladder has been removed. The common bile duct is dilated to 1.2 cm. Normal right kidney. No hydronephrosis. The spleen is mildly enlarged, measuring 15.0 cm. No ascites. Normal left kidney. No hydronephrosis. IMPRESSION: 1. Cholecystectomy. 2. Mild splenomegaly. 3. The common bile duct is dilated at 1.2 cm. A preliminary report was given at the time of the exam.
[2016-08-11] MEDS: DUONEB (A & A) INH SCH ×7 (01:12→23:01)
[2016-08-11] MEDS: NORCO-7.5 PO PRN ×3 (05:50→21:11)
[2016-08-11] MEDS: PRILOSEC PO SCH ×2 (05:50→06:18)
[2016-08-11 06:57] LABS: HEMATOCRIT 22.8 % (37.0-47.0); HEMOGLOBIN 8.5 g/dL (12.0-16.0); MCH 33.1 PG (27-31); MCHC 37.3 g/dL (33-37); MCV 88.7 FL (81-99); RBC 2.57 XMIL (4.2-5.4)
[2016-08-11 06:59] LABS: PLT 28 X1000 (130-400)
[2016-08-11 07:20] LABS: CALCIUM 7.7 mg/dL (8.8-10.2)
[2016-08-11] MEDS ORDERED: PROTONIX IV SCH (09:45)
[2016-08-11] MEDS ORDERED: SODIUM CHLORIDE 0.9% INJ SCH (09:45)
[2016-08-11] MEDS: NS 1,000 ML IV SCH (10:04)
[2016-08-11] MEDS: CITRACAL + D PO SCH (10:42)
[2016-08-11] MEDS: COLACE PO SCH (10:42)
[2016-08-11] MEDS: LOVAZA PO SCH ×2 (10:43→21:04)
[2016-08-11] MEDS: ZOFRAN IV PRN ×2 (11:37→18:03)
--- NOTE | 2016-08-11 15:09 | PROGRESS NOTE ---
DATE: 08/11/2016 SUBJECTIVE: Patient complaining of pain sharp and intense mostly in her lower quadrants. Poor appetite. OBJECTIVE: Vital signs: Blood pressure 150/48, heart rate of 94, respiratory rate 18, temperature 98.6 degrees and 98.2, 98% on 2 L. General: Generally ill appearing. She appears somewhat jaundiced, kind of sallow appearing. Her mentation is poor. HEENT: Her sclerae are anicteric. Neck: Supple. Cardiovascular: Tachycardic. There is no hyperdynamic LV. Pulmonary: Diminished at the bases with occasional rhonchi. Gastrointestinal: Abdomen soft, nontender, nondistended. Bowel sounds are positive. She does have pain and tenderness in her lower quadrants extending up into her upper quadrants with no rebound or guarding, but she does have pain with minimal palpation. Extremities: No clubbing or cyanosis. She does have some nonpitting edema in her right upper extremity. LABORATORY DATA: Pending. Her white count is still around 33,000, which is down from 48,000 but is up a little bit from yesterday. She still has diarrhea which apparently is C. difficile antigen positive but was C. difficile toxin negative. Creatinine has risen to 3, BUN has risen at 83. Hemoglobin and hematocrit has dropped to 8 and 22.8 and platelets have dropped to 28,000. Sodium down to 123. PROBLEM LIST: 1. ESBL urinary tract infection. She is on Invanz. We will continue to follow closely. 2. Acute kidney injury. Continues to worsen. She is not really on any nephrotoxic drugs. But she has progressed in renal failure. Renal ultrasound is unrevealing. Urine electrolytes suggest more prerenal cause. I will get a renal consult because she does not seem to be improving. 3. Psychogenic polydipsia. That is improved. Her sodium is still low but that may be related to multiple other issues. 4. Thrombocytopenia. She has progression in this. May be related to DIC. We are going to check a DIC panel. I have ordered a hematology consult. 5. Abdominal pain. Unclear source. She is constipated. We will progress with a CT scan of her abdomen just because I am worried about other etiologies such as ischemic gut. There is a concern with her rising white count and despite Clostridium difficile toxin negativity, I am going to go ahead and start Vancocin. With her renal failure there is a chance this is Clostridium. difficile colitis. Even though her toxin is negative her antigen is positive and her white count is very high, which is all very consistent with Clostridium difficile especially since it was normal previously. In any case, we will continue to follow very closely, discuss with the family. If she is not much improved, I think we may need to transfer her to [facility], especially if her renal failure is not improved, because she may end up requiring dialysis although at this point she has no clear need for that.
[2016-08-11 15:59] LABS: INR 1.17 (0.86-1.15); PROTIME 15.2 Seconds (12.1-15.5)
[2016-08-11 16:00] LABS: PTT PL 29.7 Seconds (22.6-43.9)
[2016-08-11] MEDS: VANCOCIN PO SCH ×2 (16:21→19:53)
[2016-08-11 17:05] LABS: UR PROT RANDOM 110.1 mg/dL
[2016-08-11] MEDS: INVANZ 1 GM/NS 50 ML IV SCH (18:03)
[2016-08-11] MEDS: REQUIP PO SCH (21:04)
[2016-08-11] MEDS: PRAVACHOL PO SCH (21:04)
[2016-08-11] MEDS: DEPAKOTE PO SCH (21:04)
[2016-08-12] MEDS: NS 1,000 ML IV SCH ×2 (00:27→15:57)
[2016-08-12] MEDS: VANCOCIN PO SCH ×4 (01:21→22:05)
[2016-08-12] MEDS: DUONEB (A & A) INH SCH ×6 (03:10→23:10)
[2016-08-12] MEDS: PRILOSEC PO SCH (06:13)
[2016-08-12 06:26] LABS: HEMATOCRIT 20.4 % (37.0-47.0); HEMOGLOBIN 7.5 g/dL (12.0-16.0); MCH 32.8 PG (27-31); MCHC 36.8 g/dL (33-37); MCV 89.1 FL (81-99); PLT 21 X1000 (130-400); RBC 2.29 XMIL (4.2-5.4)
[2016-08-12 06:29] LABS: CALCIUM 7.6 mg/dL (8.8-10.2); POTASSIUM 4.4 mmol/L (3.5-5.1)
[2016-08-12 07:05] LABS: ALBUMIN 1.2 g/dL (3.5-5.0); DIRECT BILIRUBIN 0.8 mg/dL (0.00-0.20); TOTAL BILIRUBIN 1.3 mg/dL (0.20-1.00); TOTAL PROTEIN 4.1 g/dL (6.3-8.3)
--- NOTE | 2016-08-12 08:45 | Diag Imaging Result Document ---
PROCEDURE NAME: CT ABD/PELVIS ORAL CONTR ONLY - 08/11/2016 CT SCAN OF THE ABDOMEN AND PELVIS WITHOUT IV CONTRAST WITH ORAL CONTRAST: INDICATION: Pain, jaundice, DIC. Preliminary interpretation was given by the on-call radiologist. FINDINGS: There are moderate bilateral pleural effusions and compressive atelectasis of the lower lobes. Evaluation of the solid visceral organs is limited by lack of IV contrast. There is a small amount of free perihepatic fluid and free fluid within the pelvis. Images of the pelvis are somewhat obscured by artifact from a left hip arthroplasty. There is a Hardwick catheter within the bladder which is decompressed. The common bile duct is prominent likely related to previous cholecystectomy. There is a probable 4 mm calculus within the mid left ureter with mild left hydronephrosis. There is mild hepatomegaly and mild bilateral perinephric edema and presacral edema. There is no evidence for free air. There are postsurgical changes in the lumbar spine. There is no evidence for obstruction. The appendix is suboptimally visualized however there are no findings to suggest acute appendicitis. There is a stable 13 mm sclerotic lesion within the right ilium. There is mild anasarca. IMPRESSION: 1. Bilateral pleural effusions and associated bibasilar air space disease. 2. 4 mm probable mid left ureteral stone with mild hydronephrosis. 3. Bilateral perirenal/retroperitoneal and presacral edema of uncertain etiology. 4. Small amount of ascites. 5. Probable mild hepatomegaly. 6. Mild anasarca within the soft tissues.
[2016-08-12] MEDS ORDERED: NS 500 ML IV ONE ×5 (08:55→12:07)
[2016-08-12] MEDS: CITRACAL + D PO SCH (09:25)
[2016-08-12] MEDS: COLACE PO SCH (09:26)
[2016-08-12] MEDS: PROTONIX IV SCH ×2 (09:26→21:43)
[2016-08-12] MEDS: LOVAZA PO SCH ×2 (09:27→22:31)
[2016-08-12] MEDS: NORCO-7.5 PO PRN ×2 (09:43→20:48)
[2016-08-12] MEDS: NICODERM PATCH TD PRN (09:44)
[2016-08-12] MEDS: BLISTEX MEDICATED BERRY LIP BALM TOP PRN (09:44)
--- NOTE | 2016-08-12 13:41 | PROGRESS NOTE ---
DATE: 08/12/2016 SUBJECTIVE: The patient has no focal complaints. OBJECTIVE: Blood pressure 139/78, heart rate of 98, respiratory 22, temperature 97.8 degrees, 93% on 3 L.Cardiovascular: Regular rate and rhythm. Pulmonary: Bilateral breath sounds. Clear to auscultation. GI: Is soft, protuberant, painful all around her abdomen. LABORATORY DATA: White count 38, hemoglobin and hematocrit 7 and 20, platelets at 21,000. Chemistries: BUN and creatinine of 105 and 3.5. Sodium is down to 124. Albumin is 1.2. PROBLEM LIST: 1. ESBL UTI and it looks like she is developing an impacted stone. It is only 4 mm in size but she does have hydronephrosis and I think it is likely the source of her now sepsis again or recurrent sepsis if you want to think about it in those terms. I have discussed with Dr. Vazquez and Lisa and they are going to try to transfer her to [facility] for stenting. Family would prefer going to [facility] but there are no beds and I do not think we can wait anymore time until a bed opens up there. I think we need to go ahead and get this problem taken care of and they understand that. 2. Acute kidney injury likely related to ATN versus prerenal azotemia. Will continue gentle hydration. Nephrology has been consulted. They will evaluate. She does not have bilateral obstruction so I do not think this is the mechanism. She still has fairly decent urine output. No acute indications for dialysis at this time although that may be progressive. 3. Anemia and thrombocytopenia. Again I feel like this is likely DIC associated with her smoldering infection. Her platelet count has dropped to 21,000. Her hemoglobin and hematocrit has dropped to 7.5 and 20.4. Heme-Onc has been consulted. I have discussed the case with Dr. Doss. He will evaluate her over at the other facility. I am going to go ahead and give her a unit of blood and a unit of platelets because she will have instrumentation although Dr. Gonzalez feels safe that he can do the procedure with low bleeding risk. DISPOSITION: Pending her multiple issues. I am also going to get Dr. Hernandez to evaluate since she has persistently elevated white count although it may be related to her obstruction. She is C. difficile antigen positive but C. difficile toxin negative. I have empirically started on vancomycin orally. Dr. Hernandez can choose to stop that considering the sepsis may be related to her ureterolithiasis source. Condition guarded. Discussed with the family and they understand although their preference was to go to [facility], that is not an option at this time and we need to pursue care where it can be found more readily available.
--- NOTE | 2016-08-12 17:43 | CONSULTATION ---
DATE OF CONSULTATION: 08/12/2016 REASON FOR CONSULTATION: Acute kidney injury. HISTORY OF PRESENT ILLNESS: Ms. Trujillo is a 66-year-old white female with a history of bipolar disorder, restless legs, anorexia, hyperlipidemia, hypertension and reflux. She presented to the hospital with complaints of falling and weakness and these symptoms were attended also by nausea, vomiting, and fever. Her initial evaluation found her to be normotensive and afebrile. Her initial blood work found significant hyponatremia as well as a creatinine of 1.4. [place] [address]. She was admitted to the hospital and studied with blood cultures, urine cultures, etc. Blood cultures were negative. Urine cultures grew E. coli which was ESBL positive. She has been treated with aggressive appropriate antibiotics including ertapenem and vancomycin. Despite these antibiotics her white count has worsened and peaked at 48.9 on the . It has remained markedly elevated since that time, and she has developed other signs suggestive of DIC with falling platelet count, anemia and elevated fibrinogen and D-dimer. She underwent a CT of the abdomen to follow up on abnormal ultrasound. The ultrasound suggested a dilated common duct. CT did not support this diagnosis but did demonstrate a 4 mm left ureteral stone with mild hydronephrosis. In this context, her renal function was worsening as well and on that basis. I was contacted by Dr. Bowling and I advised and Urology evaluation and she was therefore transferred to [facility] where we are able to provide this and provide intervention is needed. PAST MEDICAL HISTORY: As above. CURRENT MEDICATIONS: Include albumin, pantoprazole, vancomycin, normal saline, albuterol, ipratropium, ertapenem, fentanyl, Depakote, ergocalciferol, ropinirole, pravastatin, omeprazole, docusate, hydrocodone, nicotine patch, Tylenol. ALLERGIES: Olanzapine. SOCIAL HISTORY: She lives with a non-related male. Continues to smoke. No alcohol or illicit drug use. FAMILY HISTORY: Noncontributory. REVIEW OF SYSTEMS: Otherwise noncontributory. PHYSICAL EXAMINATION: Vital Signs: Blood pressure 149/53, heart rate 92, respirations 18, afebrile. Intake 4.4 L. Output 1 L. General: No acute distress. Skin: Warm and dry. Conjunctivae are pink. Pupils are equal. Oropharynx is dry. Neck: Supple. Trachea is midline. Neck veins are modestly distended. Heart: Regular without gallops or murmurs. Lungs: Have equal breath sounds. No crackles or wheezes. Abdomen: Soft and mildly tender diffusely. She has voluntary guarding. Bowel sounds are present. Extremities: Have 1+ edema. No clubbing or cyanosis. IMPRESSION/PLAN: Acute kidney injury, likely secondary to acute sepsis and obstructive urinary tract stone with infection. She is on appropriate antibiotics. She does not need further IV fluids. I will discontinue these. No further imaging is required. Agree with urology consultation. I counseled the patient about the status of her renal disease. She does not have indications for dialysis currently, but we will follow carefully, and treat if required.
--- NOTE | 2016-08-12 18:26 | CONSULTATION ---
DATE OF CONSULTATION: 08/12/2016 ATTENDING AND REFERRING PHYSICIAN: Hospitalist. HISTORY OF PRESENT ILLNESS: This 66-year-old female was admitted on 06 August with weakness, not feeling well and some confusion. Her serum electrolytes had a sodium of 116, her BUN was 24, creatinine was 1.4. Her white count was 16.99. Her hemoglobin was 11 and hematocrit was 33. The patient is confused and is not oriented to place or time. Her history was taken from her daughter who is at bedside. PAST MEDICAL HISTORY: Hypertension, restless legs syndrome, elevated cholesterol, gastroesophageal reflux disease, history of irritable bowel, depression, history of pelvic fracture. CURRENT MEDICATIONS: Are documented on the chart and include oral vancomycin. PAST SURGICAL HISTORY: Cholecystectomy, exploratory laparotomy for anorexia, hysterectomy, hip arthroplasty, lower back surgery. SOCIAL HISTORY: Cigarettes, a half pack to a pack a day for over 40 years. ETOH use negative. REVIEW OF SYSTEMS: There does not appear to be any history of diabetes, strokes, or seizures. ALLERGIES: She is allergic to olanzapine. PHYSICAL EXAMINATION: General: A mildly obese, age apparent, normally developed, white female who will answer questions but they are not appropriate answers. HEENT: Normal for age. Lungs: Clear. Cardiovascular: Regular rate and rhythm. Abdomen: Protuberant, soft, nontender. No hepatosplenomegaly or masses. Normal bowel sounds. Genitourinary Exam: Deferred until surgery. Extremities: No C, C, or E. Neurologic: No focal deficits. DIAGNOSTIC DATA: Laboratory evaluation with a white count today of 38.6, hemoglobin 7.5, hematocrit 20.4, platelets are 21,000. Serum electrolytes have a sodium of 124, potassium 4.4, chloride 94, bicarb 14, BUN 105, creatinine 3.5. CT stone search is as noted in the HPI. IMPRESSION: Patient with multiple medical problems, including anemia with renal failure, electrolyte abnormalities, history of kidney stones and a possible left mid to distal ureteral stone. PLAN: Cystoscopic exam, place left double-J stent. The planned procedure, benefits versus risks, possible complications, including but not limited to bleeding, continued infection, not correcting her electrolyte abnormalities and renal failure, need for further procedures was discussed with the patient's daughter. She seems to understand and desires to proceed.
--- NOTE | 2016-08-12 19:09 | CONSULTATION ---
DATE OF CONSULTATION: 08/12/2016 CONCLUSION: Patient is transferred from [place] in a septic condition. She has an extended spectrum beta-lactamase producing E. coli urinary tract infection and an obstructing right ureteral stone. She also has on CT scan bibasilar infiltrates and effusions which may represent a pneumonia. RECOMMENDATIONS: I have discontinued ertapenem and started the patient on meropenem and ceftaroline to cover the extended spectrum beta-lactamase producing E. coli urinary tract infection and also in case there is another infection, for instance pneumonia. Those antibiotics will provide a broad spectrum of coverage. Dr. Gonzalez has seen the patient and he is going to be putting in a stent in the ureter of the obstructed kidney. DISCUSSION: Most of the information was taken from her daughter. Approximately 10 days ago she had an injection in her back. Ten days ago she had an injection in her back because of degenerative joint disease. Approximately a week ago she developed altered mental status and she was unable to walk. She was admitted to [facility]. Her urine culture grew out an extended spectrum beta-lactamase producing E. coli urinary tract infection and she was started on ertapenem for this. She also had a positive Clostridium difficile antigen but negative toxin. Her blood cultures have been sterile and stool for ova and parasites is negative also. The patient's abdominal and pelvic CT scan showed bibasilar effusions and bilateral airspace disease. There was ascites as well as retroperitoneal fluid. The patient has gone into renal failure. Her creatinine is 3.5, GFR is 13, bilirubin is 1.3, alkaline phosphatase is 159. Patient has been started on p.o. vancomycin. The patient's CBC shows a white count of 38,640, hemoglobin 7.5 and platelet count 21,000. Creatinine is 3.5, GFR is 13, bilirubin is 1.3 and alkaline phosphatase is 159. COLLEGE PROFESSOR HISTORY: She is a 2, para 1, AB 1. She had a hysterectomy. REVIEW OF SYSTEMS: This was unobtainable from the patient. It was taken mainly from the daughter.Eyes and ears: The patient did not have difficulty hearing or seeing. Respiratory: No cough or shortness of breath. Gastrointestinal: No nausea or vomiting. She did have a few days of diarrhea but since that time she has not passed any stool. Genitourinary: She did not complain of dysuria. The patient normally is incontinent. Bones, joints, muscles: The patient does complain of joint pain and myalgias. Endocrine: The patient is not a diabetic and she does not have thyroid disease. Neurologic: The patient has been very weak especially in the left leg but also to a lesser extent in the right leg and arms. Integument: No rash is noted. The remainder of the patient's review of systems was completed and was negative. PREVIOUS HOSPITALIZATIONS AND OPERATIONS: She had labor and delivery, miscarriage and hysterectomy. She once was admitted with severe constipation. She had an appendectomy as well. MEDICAL DISEASES: Positive for hypertension, restless leg syndrome, gastroesophageal reflux disease, bipolar disorder, and urinary incontinence. INFECTIOUS DISEASE HISTORY: Positive for pneumonia and UTI. FAMILY HISTORY: Positive for hypertension and cancer. SOCIAL HISTORY: [place] She smoke cigarettes. She is a recovering alcoholic. She does not abuse drugs. She is . She lives with a roommate. HOME MEDICATIONS: Duragesic, Depakote, vitamin B12, Prilosec, hydrocodone, Movantik, Docusate, Remeron, Cymbalta, Pravachol, ropinirole, trazodone and albuterol. PHYSICAL EXAMINATION: Vital Signs: Temperature 97.8 degrees, pulse 92, respirations 18, blood pressure 149/53. General: This is an ill-appearing, elderly female. She does not appear to be in any acute distress. Head, eyes, ears, nose, and throat: She can hear my spoken words and see near objects. Her mouth oral mucosa is dry. Neck: No meningismus. Thorax: No increased AP diameter. Lungs: Clear to auscultation. Cardiovascular: Regular heart rate. Peripheral pulses were diminished. Abdomen: Soft. She appeared to have diffuse tenderness as well as CVA tenderness. Neurologic: Patient is awake. She can barely move her extremities with the left leg being the weakest. There is no tremor. Integument: No rash noted. Thank you for the consultation.
[2016-08-12 20:10] LABS: URINE MICRO REVIEW NEEDED? NO; URINE SOURCE CATH
[2016-08-12 20:27] LABS: UR CREAT RANDOM 23.9 mg/dL (11-20); UR PROT RANDOM 121.8 mg/dL
[2016-08-12 20:34] LABS: UR EPITHELIAL CELLS <10 /HPF (<10); URINE BACTERIA NEGATIVE /HPF; URINE RBC TNTC /HPF (<10); URINE WBC TNTC /HPF (<10)
[2016-08-12 20:35] LABS: BILIRUBIN URINE NEGATIVE (NEGATIVE); BLOOD URINE LARGE (NEGATIVE); COLOR YELLOW; GLUCOSE URINE NEGATIVE (NEGATIVE); NITRITE URINE NEGATIVE (NEGATIVE); PROTEIN URINE 100 mg/dL (NEGATIVE); TURBIDITY URINE HAZY (CLEAR); UROBILINOGEN URINE 2 mg/dL (NORMAL)
[2016-08-12 20:36] LABS: LEUKOCYTES URINE MODERATE (NEGATIVE)
[2016-08-12 21:14] LABS: BASO% 0.5 % (0.0-0.8); EOS% 0.3 % (0.0-10.0); HEMATOCRIT 21.7 % (37.0-47.0); HEMOGLOBIN 8.1 g/dL (12.0-16.0); IMM GRAN# 5.65 X1000 (0.0-0.04); IMM GRAN% 14.4 % (0.0-0.5); LYMPH# 1.76 X1000 (1.2-3.4); LYMPH% 4.5 % (20.5-51.1); MANUAL DIFF NEEDED? YES; MCH 32.7 PG (27-31); MCHC 37.3 g/dL (33-37); MCV 87.5 FL (81-99); MONO# 3.49 X1000 (0.11-0.59); MONO% 8.9 % (1.7-9.3); NEUT% 71.4 % (42.2-75.2); PLT 53 X1000 (130-400); RBC 2.48 XMIL (4.2-5.4)
[2016-08-12 21:27] LABS: BANDS 6 % (0-1); LYMPHS 6 % (21-51); MONO 8 % (1-9)
[2016-08-12 21:29] LABS: HYPOCHROM 1+
[2016-08-12] MEDS: REQUIP PO SCH (21:42)
[2016-08-12] MEDS: TEFLARO 300 MG in NS 250 ML IV SCH (21:44)
[2016-08-12] MEDS: MERREM 500 MG in NS 50 ML IV SCH (21:44)
[2016-08-12] MEDS: ALBUMIN 25% IV SCH (21:45)
[2016-08-12] MEDS: TYLENOL PO PRN (22:06)
[2016-08-12] MEDS: PRAVACHOL PO SCH (22:06)
[2016-08-12] MEDS: ZOFRAN IV PRN (22:07)
[2016-08-12] MEDS: DEPAKOTE PO SCH (22:32)
[2016-08-13] MEDS: NORCO-7.5 PO PRN ×3 (03:45→19:46)
[2016-08-13] MEDS: MERREM 500 MG in NS 50 ML IV SCH (03:46)
[2016-08-13] MEDS: VANCOCIN PO SCH ×4 (03:46→22:42)
[2016-08-13] MEDS: DUONEB (A & A) INH SCH ×6 (03:53→23:40)
[2016-08-13] MEDS: BLISTEX MEDICATED BERRY LIP BALM TOP PRN ×2 (03:56→21:10)
[2016-08-13 05:46] LABS: BASO% 0.3 % (0.0-0.8); EOS% 0.3 % (0.0-10.0); HEMATOCRIT 19.9 % (37.0-47.0); HEMOGLOBIN 7.1 g/dL (12.0-16.0); IMM GRAN# 4.74 X1000 (0.0-0.04); IMM GRAN% 13.7 % (0.0-0.5); LYMPH% 5.5 % (20.5-51.1); MANUAL DIFF NEEDED? YES; MCH 31.4 PG (27-31); MCHC 35.7 g/dL (33-37); MCV 88.1 FL (81-99); MONO# 2.92 X1000 (0.11-0.59); MONO% 8.4 % (1.7-9.3); NEUT% 71.8 % (42.2-75.2); PLT 45 X1000 (130-400); RBC 2.26 XMIL (4.2-5.4)
[2016-08-13 05:48] LABS: INR 1.05; PROTIME 11.1 Seconds (9.2-11.7)
[2016-08-13 06:07] LABS: BANDS 18 % (0-1); LYMPHS 8 % (21-51); MONO 12 % (1-9)
[2016-08-13 06:22] LABS: CALCIUM 8.3 mg/dL (8.8-10.2); DIRECT BILIRUBIN 0.7 mg/dL (0.00-0.20); POTASSIUM 4.8 mmol/L (3.5-5.1); TOTAL BILIRUBIN 0.97 mg/dL (0.20-1.00); TOTAL PROTEIN 4.2 g/dL (6.3-8.3)
[2016-08-13 06:30] LABS: RETIC% 0.93 % (0.8-2.1); RETIC-HE 35.6 PG (28.2-36.6)
[2016-08-13] MEDS ORDERED: FENTANYL ONE (08:57)
[2016-08-13] MEDS ORDERED: NS 500 ML ONE (10:07)
[2016-08-13] MEDS: TEFLARO 300 MG in NS 250 ML IV SCH ×2 (10:17→19:48)
[2016-08-13] MEDS: COLACE PO SCH (10:18)
[2016-08-13] MEDS: PROTONIX IV SCH ×2 (10:18→20:08)
[2016-08-13] MEDS: LOVAZA PO SCH ×2 (10:18→20:09)
[2016-08-13] MEDS: CITRACAL + D PO SCH (10:19)
[2016-08-13] MEDS: VITAMIN D PO SCH (10:19)
--- NOTE | 2016-08-13 10:28 | Diag Imaging Result Document ---
PROCEDURE NAME: CT THORAX W/O CONTRAST - 08/12/2016 CT CHEST: A CT dose reduction protocol was used. COMPARISON: CT abdomen and pelvis 08/11/2016. FINDINGS: There are stable small bilateral pleural effusions. There is stable adjacent atelectasis or consolidation. There are ill-defined central infiltrates bilaterally with smooth interlobular septal thickening compatible with pulmonary edema. Heart size is borderline enlarged. Anemia is present. No mass or adenopathy. There is a right PICC line in good position. Bony structures are intact. IMPRESSION: 1. Cardiomegaly, pulmonary edema, and bilateral pleural effusions. 2. Bilateral lower lobe atelectasis. 3. No suspicious infiltrates. [facility]
--- NOTE | 2016-08-13 10:31 | Diag Imaging Result Document ---
PROCEDURE NAME: CHEST-PORTABLE - 08/13/2016 PORTABLE CHEST X-RAY: COMPARISON: 08/09/2016. FINDINGS: Stable right PICC line in good position. There are bilateral ill-defined mixed infiltrates compatible with pulmonary edema. Pulmonary vascularity is distended. There are small pleural effusions. Heart size is slightly enlarged. IMPRESSION: Cardiomegaly, pulmonary edema, pleural effusions.
--- NOTE | 2016-08-13 12:55 | Diag Imaging Result Document ---
PROCEDURE NAME: HEAD W/O CONTRAST - 08/13/[address]: A CT dose reduction protocol was used. COMPARISON: 09/23/2015. FINDINGS: Evaluation of the brain is normal. The skull is intact. There is mild sinusitis of the ethmoid and sphenoid sinuses. IMPRESSION: Mild sinusitis. No acute disease. MTDD
--- NOTE | 2016-08-13 13:03 | PROGRESS NOTE ---
DATE: 08/13/2016 SUBJECTIVE: The patient has just returned from a cystoscopy with ureteral stent placement. She is awake but lethargic. She does complain of persistent back pain. OBJECTIVE: Vital Signs: Temperature 98 degrees, blood pressure 130/45, heart rate 95, respirations 16, O2 saturations 98% on 2 L nasal cannula. General: This is a morbidly obese lady lying in bed, in no acute distress. Head: Normocephalic atraumatic. Heart: S1, S2. Normal. Regular rate and rhythm. Lungs: Clear to auscultation bilaterally. Diminished breath sounds at the bases. Abdomen: Positive bowel sounds. Soft, obese, nontender, nondistended. Extremities: 2+ edema. No cyanosis. No calf tenderness. Neurologic: The patient is lethargic but she does answer questions and follow commands. She is able to move all 4 extremities. LABS: White blood cell count 34, hemoglobin 7.1, hematocrit of 19, platelets 45 ,000. D-dimer is 6.4, fibrinogen 507. Sodium 129, potassium 4.8, chloride 95, CO2 14. BUN 121, creatinine 4.2, glucose 68. Phosphorus 6.6, calcium 8.3. Direct bilirubin 0.7. AST 59, ALT 8 , alkaline phosphatase 103. LDH 508. ProBNP 06024. Total protein 4.2, albumin 2. CT of the chest shows cardiomegaly, pulmonary edema and bilateral pleural effusions. ASSESSMENT AND PLAN: 1. Sepsis. The suspected source is the patient's urinary tract. She did grow out ESBL E. coli on the . So far, the blood cultures remain negative. We will continue on the current IV antibiotic regimen as directed by Dr. Hernandez. 2. Bilateral pyleonephritis. Continue on the current antibiotic therapy. 3. Left ureteral stone status post cystoscopy with stent placement. We will continue to monitor the patient's urine output closely. The urologist is following. 4. Metabolic encephalopathy. This is most likely secondary to the patient's underlying infection. Continue with treatment of the active infection. 5. DIC. The patient's platelet count has again dropped today. The patient did receive platelets yesterday. We will continue to treat the underlying infection. Hematology has been consulted. 6. Leukocytosis. This is slightly improved. Continue on the current IV antibiotic regimen. 7. Acute pulmonary edema. The patient has received multiple blood products and IV fluids. We will need to monitor the patient's volume status closely. We will defer to the aircraft inspection record clerk regarding usage of Lasix. 8. Anemia. The patient is scheduled for 2 units of packed red blood cells today. We will continue to monitor the patient's counts closely. 9. Hyponatremia. Improved. 10. Metabolic acidosis. Management as per the aircraft inspection record clerk. 11. Urinary tract infection secondary to ESBL E. coli. Continue on IV antibiotic therapy. 12. Back pain. The patient's family reports that the patient got a back injection about 2 weeks ago. We will go ahead and do a CT of the thoracic and lumbar spine to rule out the possibility of an epidural abscess. 13. Restless legs syndrome. Aware. 14. Thrombocytopenia. Presumably this is secondary to DIC. Hopefully this will improve as the patient's underlying infection is treated. 15. Acute kidney injury. The patient's creatinine continues to rise. However the patient does have very good urine output. We will avoid nephrotoxic agents and renally dose the patient's antibiotics. Further management as per the aircraft inspection record clerk. 16. Gastrointestinal prophylaxis. Continue on IV Protonix. MTDD
--- NOTE | 2016-08-13 13:15 | PROGRESS NOTE ---
DATE: 08/13/2016 SUBJECTIVE: Patient had a ureteral stent placed today. Report through the family was that there was not a significant amount of pressure behind the stone. He did not visualize the stone as well. She still has generalized tenderness in the muscles as well as the abdomen and has paroxysms of pain. OBJECTIVE: Vital Signs: Blood pressure 126/46, heart rate 85, respirations 16, afebrile. Intake 1.1 L. Output 1.7 L. General: No acute distress. Skin: Warm and dry. Somewhat pale. Pupils are equal. Neck: Neck veins are not distended. No hepatojugular reflux. Her carotid pulsation is prominent and may obscure exam. Heart: Regular. No rubs or murmurs or gallops. Lungs: Have equal breath sounds. No crackles or wheezes. Abdomen: Mildly tender diffusely with voluntary guarding. Extremities: Have mild tenderness to palpation. 1+ edema is present. LABORATORY DATA: Sodium 129, potassium 4.8, chloride 95, bicarbonate 14, BUN 121, creatinine 4.2. IMPRESSION: 1. Bilateral pyelonephritis with sepsis and acute kidney injury. BUN and creatinine continue to rise. She does not have any absolute indications for dialysis. I would like to observe her for 24-48 hours after stent placement. If no improvement, she may need hemodialysis. Obviously if she develops acute indications then we will begin treatment earlier. We will follow carefully. 2. Electrolytes are acceptable. 3. Acid-base: She does have a moderately severe metabolic acidosis with increased anion gap, as well as non gap components. Continue current care. 4. Anemia/thrombocytopenia: Managed by primary team.
--- NOTE | 2016-08-13 13:20 | Diag Imaging Result Document ---
PROCEDURE NAME: T-SPINE/L-SPINE W/O CONTRAST - 08/13/2016 CT THORACIC SPINE: A CT dose reduction protocol was used. COMPARISON: CT chest earlier 08/13/2016. FINDINGS: The soft tissues of the chest are unchanged. Alignment of the spine is anatomic. Vertebral body heights and intervertebral disk spaces are preserved. No fracture or subluxation. There are some minimal degenerative osteophytes scattered throughout the thoracic spine. There is moderate disk degeneration at C5-6 and C6-7 with bulky osteophyte formation. No significant central canal or neural foraminal stenosis. IMPRESSION: Cervical-thoracic spondylosis. No acute disease. CT LUMBAR SPINE: A CT dose reduction protocol was used. COMPARISON: MRI 05/20/2014, abdomen CT 08/11/2016. FINDINGS: There has been laminectomy at L4 with posterior bilateral neelam fusion at L4-L5. There is grade 1 anterolisthesis of about 6 mm of L4 on L5. There is severe disk degeneration at L3-4 and L4-5. There is stable, long-standing mild wedging deformity and superior endplate herniation at L1. Stable presacral edema, nonspecific. There is a new left nephroureteral stent which was apparently placed just before this exam. This is in good position. At L3-L4, there is moderate central canal stenosis from a disk bulge and severe facet hypertrophy. At L4-L5, there is moderate bilateral neural foraminal stenosis. IMPRESSION: Surgical changes as described above. Lumbar spondylosis with no acute disease here. [facility]
[2016-08-13] MEDS: ALBUMIN 25% IV SCH (14:48)
--- NOTE | 2016-08-13 16:30 | OPERATIVE NOTE ---
PROCEDURE DATE: 08/12/2016 PREOPERATIVE DIAGNOSIS: Probable right mid to distal ureteral stone with mild hydronephrosis. POSTOPERATIVE DIAGNOSIS: Probable right mid to distal ureteral stone with mild hydronephrosis. PROCEDURE PERFORMED: Cystoscopic exam, place left double-J stent. ANESTHESIA: IV sedation with monitored anesthesia care. FINDINGS: Cystoscopic exam: Urethra-greater than 21 Maldivian without stricture. Bladder-normal ureteral orifices bilaterally. No papillary lesions. There was some bullous edema around the trigone and lower posterior wall consistent with indwelling Hardwick catheter. Grade 1 trabeculations. exam: Normal external female. Atrophic mucosa. No adnexal masses. Palpably normal bladder. Surgically absent cervix and uterus. The sacrum was noted to have stage II decubitus ulcers covered with DuoDERM. INDICATION FOR PROCEDURE: This 66-year-old female was admitted with mental status changes, significant anemia and thrombocytopenia, probable sepsis syndrome. A CT scan revealed a possible left mid distal ureteral stone but due to orthopedic hardware there was much artifact. DESCRIPTION OF PROCEDURE: After informed consent was obtained from the patient's family and her receiving her scheduled IV antibiotics, she was taken to the main OR cystoscopy room placed in supine position. IV sedation was achieved. She was then placed in low lithotomy position and prepped and draped in the usual sterile fashion for cystoscopic exam. A 21-Maldivian cystoscope was passed the patient's urethra and into the bladder with findings as noted above. A 0.035 ZIPwire was passed through the cystoscope, engaged the left ureteral orifice, advanced up into the kidney. A 7-Maldivian 24 cm double-J stent was passed over the ZIPwire and up into the kidney. The renal end was verified by fluoroscopic exam, bladder end directly visualized. Stent removal string was removed. The cystoscope was removed and a 16-Maldivian Hardwick catheter was returned to the bladder, 10 mL sterile water were placed in the Hardwick's balloon. Hardwick was placed to gravity drain. exam was performed. She tolerated the procedure well. ESTIMATED BLOOD LOSS: Zero. DISPOSITION: She was taken to recovery room in good condition.
[2016-08-13] MEDS: DURAGESIC 12 MICROGM/HR PATCH TD SCH (16:48)
[2016-08-13 19:22] LABS: HEMOGLOBIN 8.9 g/dL (12.0-16.0)
[2016-08-13] MEDS: SODIUM CHLORIDE 0.9% INJ SCH (20:08)
[2016-08-13] MEDS: PRAVACHOL PO SCH (20:09)
[2016-08-13] MEDS: DEPAKOTE PO SCH (20:10)
[2016-08-14] MEDS: VANCOCIN PO SCH ×4 (03:02→22:27)
[2016-08-14] MEDS: NORCO-7.5 PO PRN ×5 (03:13→22:27)
[2016-08-14] MEDS: MERREM 500 MG in NS 50 ML IV SCH (05:10)
[2016-08-14] MEDS: DUONEB (A & A) INH SCH ×6 (05:37→23:15)
[2016-08-14 06:36] LABS: INR 1.04
[2016-08-14 06:44] LABS: BASO% 0.4 % (0.0-0.8); EOS# 0.13 X1000 (0.0-0.7); EOS% 0.3 % (0.0-10.0); HEMATOCRIT 26.3 % (37.0-47.0); HEMOGLOBIN 9.6 g/dL (12.0-16.0); IMM GRAN# 4.35 X1000 (0.0-0.04); IMM GRAN% 11.5 % (0.0-0.5); LYMPH# 1.92 X1000 (1.2-3.4); LYMPH% 5.1 % (20.5-51.1); MANUAL DIFF NEEDED? YES; MCHC 36.5 g/dL (33-37); MCV 87.7 FL (81-99); MONO# 3.22 X1000 (0.11-0.59); MONO% 8.5 % (1.7-9.3); NEUT% 74.2 % (42.2-75.2); PLT 76 X1000 (130-400)
[2016-08-14 06:58] LABS: ALBUMIN 2.3 g/dL (3.5-5.0); CALCIUM 7.9 mg/dL (8.8-10.2); DIRECT BILIRUBIN 0.5 mg/dL (0.00-0.20); POTASSIUM 5.3 mmol/L (3.5-5.1); TOTAL BILIRUBIN 0.84 mg/dL (0.20-1.00); TOTAL PROTEIN 4.5 g/dL (6.3-8.3)
[2016-08-14] MEDS: TEFLARO 300 MG in NS 250 ML IV SCH ×2 (07:50→20:12)
[2016-08-14 08:07] LABS: BANDS 8 % (0-1); LYMPHS 6 % (21-51); MONO 8 % (1-9)
[2016-08-14] MEDS: SODIUM CHLORIDE 0.9% INJ SCH ×2 (09:17→20:11)
[2016-08-14] MEDS: PROTONIX IV SCH ×2 (09:17→20:11)
[2016-08-14] MEDS: COLACE PO SCH (09:18)
[2016-08-14] MEDS: LOVAZA PO SCH ×2 (09:18→20:12)
[2016-08-14] MEDS: NICODERM PATCH TD PRN (10:18)
[2016-08-14] MEDS: CITRACAL + D PO SCH (10:26)
[2016-08-14] MEDS: ALBUMIN 25% IV SCH (14:09)
--- NOTE | 2016-08-14 15:03 | Diag Imaging Result Document ---
PROCEDURE NAME: CHEST-PORTABLE - 08/14/2016 PORTABLE CHEST X-RAY: COMPARISON: 08/13/2016. FINDINGS: Stable right PICC line in good position. Stable cardiomegaly and pulmonary vascular congestion. There is overall no significant change in the central and bibasilar infiltrates/edema. IMPRESSION: No change from prior.
--- NOTE | 2016-08-14 15:12 | PROGRESS NOTE ---
DATE: 08/14/2016 SUBJECTIVE: The patient is resting comfortably in bed. She is more awake as per the family today. She is still hypersensitive to touch in her lower extremities. She does have swelling involving the right arm where she has a PICC line in place. She denies having any shortness of breath at this time. OBJECTIVE: Vital Signs: Temperature 97.9 degrees, blood pressure 147/53, heart rate 88, respirations 16, O2 saturation is 97% on 2 L nasal cannula. Intake and output: Intake 2.1 L. Output 840 mL. General: This is a chronically ill-appearing, elderly female, lying in bed, in no acute distress. Skin: No rashes. No lesions. Heart: S1, S2. Normal. Regular rate and rhythm. Lungs: Clear to auscultation bilaterally. Decreased breath sounds at the lung bases. Abdomen: Positive bowel sounds. Soft, nontender, nondistended. Extremities: There is 2+ edema in the lower extremities. The right upper extremity has 2+ edema. Neurologic: The patient is alert and oriented x3. No focal neurologic deficits noted. LABS: White blood cell count 37.9, hemoglobin 9.6, hematocrit 26, platelets 76,000. INR 1.0. Sodium 129, potassium 5.3, chloride 95, CO2 13, BUN 135, creatinine 4.7, glucose 57, calcium 7.9, phosphorus 7.6, total bilirubin 0.8, direct bilirubin 0.5, AST 53, ALT 6, alkaline phosphatase 122. ProBNP 17,643. Total protein 4.5, albumin 2.3. ASSESSMENT AND PLAN: 1. Sepsis secondary to bilateral Escherichia coli pyelonephritis. We will continue on IV antibiotic therapy as directed by Dr. Hernandez. 2. Left ureteral stone, status post cystoscopy with left ureteral stent placement. Management as per the urologist. 3. Metabolic encephalopathy. Improved. Continue to treat the underlying infection. 4. Disseminated intravascular coagulation. Slowly improving. Hematology is following. 5. Leukocytosis. The patient's white blood cell count is elevated again today. ID is following. 6. Acute kidney injury. The patient's BUN and creatinine have risen again today. The patient still has adequate urine output. Further management as per the flat folder. 7. Metabolic acidosis. Management as per the flat folder. 8. Volume overload. The patient did receive 2 units of packed red blood cells yesterday. She is maintaining her O2 saturation at this time. We will monitor this closely. 9. Anemia. Improved. The patient received 2 units of packed red blood cells yesterday. 10. Restless legs syndrome. Aware. 11. Thrombocytopenia. Improved. 12. Gastrointestinal prophylaxis. Continue on IV Protonix. The plan of care was discussed with the patient's family at the bedside.
[2016-08-14] MEDS: DEPAKOTE PO SCH (20:11)
[2016-08-14] MEDS: PRAVACHOL PO SCH (20:12)
[2016-08-15] MEDS: VANCOCIN PO SCH (03:18)
[2016-08-15] MEDS: NORCO-7.5 PO PRN ×2 (03:18→17:14)
[2016-08-15] MEDS: DUONEB (A & A) INH SCH ×6 (03:36→22:38)
[2016-08-15] MEDS: MERREM 500 MG in NS 50 ML IV SCH (05:09)
[2016-08-15 06:52] LABS: BASO% 0.3 % (0.0-0.8); EOS# 0.12 X1000 (0.0-0.7); EOS% 0.4 % (0.0-10.0); HEMATOCRIT 25.3 % (37.0-47.0); HEMOGLOBIN 8.9 g/dL (12.0-16.0); IMM GRAN# 2.59 X1000 (0.0-0.04); IMM GRAN% 7.6 % (0.0-0.5); LYMPH# 1.54 X1000 (1.2-3.4); LYMPH% 4.5 % (20.5-51.1); MANUAL DIFF NEEDED? YES; MCH 31.4 PG (27-31); MCHC 35.2 g/dL (33-37); MCV 89.4 FL (81-99); MONO# 2.81 X1000 (0.11-0.59); MONO% 8.3 % (1.7-9.3); MPV 11.2 FL (7.4-10.4); NEUT% 78.9 % (42.2-75.2); PLT 166 X1000 (130-400); RBC 2.83 XMIL (4.2-5.4)
[2016-08-15 06:56] LABS: PROTIME 11.2 Seconds (9.2-11.7)
[2016-08-15 06:57] LABS: INR 1.06
[2016-08-15 07:32] LABS: ALBUMIN 2.4 g/dL (3.5-5.0); CALCIUM 7.9 mg/dL (8.8-10.2); DIRECT BILIRUBIN 0.5 mg/dL (0.00-0.20); POTASSIUM 5.7 mmol/L (3.5-5.1); TOTAL BILIRUBIN 0.78 mg/dL (0.20-1.00); TOTAL PROTEIN 4.7 g/dL (6.3-8.3)
[2016-08-15 07:39] LABS: BANDS 8 % (0-1); LYMPHS 10 % (21-51); MONO 6 % (1-9)
[2016-08-15] MEDS ORDERED: TIGHT: 0.2 ML/HR MISC PRN (08:16)
[2016-08-15] MEDS ORDERED: NS 2,000 ML MISC PRN (08:16)
[2016-08-15] MEDS ORDERED: HEPARIN IV PRN (08:16)
--- NOTE | 2016-08-15 09:05 | PROGRESS NOTE ---
DATE: 08/15/2016 SUBJECTIVE: She is really feeling better today. She does still have pain in her muscles and her abdomen, but is significantly improved and she feels like eating. OBJECTIVE: Vital Signs: Blood pressure 144/61, heart rate 88, respirations 16, afebrile. Intake 2 L. Output 1.4 L. General: No acute distress. Skin: Warm and dry. HEENT: Conjunctivae are pink. Neck: Neck veins are distended. Heart: Regular with S4 gallop. Lungs: Have equal breath sounds. No crackles or wheezes. Abdomen: Soft, nontender. Bowel sounds are present. Extremities: Have 2+ edema. No clubbing or cyanosis. LABORATORY DATA: Sodium 132, potassium 5.7, chloride 96, bicarbonate 11. BUN 141, creatinine 5.5, hemoglobin 8.9. IMPRESSION: 1. Acute kidney injury. No improvement. We will consult Dr. Alanis for dialysis catheter and begin treatment today. I have counseled the patient and her family regarding this. They understand and agree to proceed. 2. Hyperkalemia/metabolic acidosis. These problems will be addressed with dialysis today. 3. Volume overload. Modest. 2-3 L ultrafiltration today.
--- NOTE | 2016-08-15 09:17 | Diag Imaging Result Document ---
PROCEDURE NAME: CHEST-PORTABLE - 08/15/2016 SINGLE FRONTAL RADIOGRAPH OF THE CHEST: COMPARISON: 08/14/2016. FINDINGS: Right PICC line is stable. There is suggestion of pulmonary venous congestion that is stable. No new consolidations identified. Cardiac silhouette is stable. IMPRESSION: Stable chest.
[2016-08-15] MEDS: SODIUM CHLORIDE 0.9% INJ SCH (09:25)
[2016-08-15] MEDS: PROTONIX IV SCH ×2 (09:25→20:41)
[2016-08-15] MEDS: TEFLARO 300 MG in NS 250 ML IV SCH (09:25)
[2016-08-15] MEDS ORDERED: ANESTHESIA PB SET 88 IN 5742 ONE (09:30)
[2016-08-15] MEDS ORDERED: LR 1,000 ML ONE (09:30)
[2016-08-15] MEDS ORDERED: EXTENSION SET 32 IN 4522 ONE (09:30)
[2016-08-15] MEDS ORDERED: AMIDATE ONE (09:30)
[2016-08-15] MEDS ORDERED: NS 2,000 ML ONE (09:58)
[2016-08-15] MEDS ORDERED: HEPARIN ONE (09:59)
--- NOTE | 2016-08-15 11:25 | PROGRESS NOTE ---
DATE: 08/15/2016 SUBJECTIVE: Patient reports feeling fine. Denies any fever. Denies any chills. The patient reports that both legs are really very sensitive to touch. Denies any swelling in both legs. OBJECTIVE: Vital Signs: Temperature 96.9 degrees, heart rate 88, respiratory rate 16, blood pressure 144/61, O2 saturation 96% on room air. General Examination: This is a chronically ill- looking and frail, 66-year-old, female lying in bed, in no acute distress. HEENT: Head is normocephalic and atraumatic. Anicteric sclerae and pale conjunctivae. Mucous membranes moist. Neck: Supple. No JVD noted. No carotid bruits. No lymphadenopathy. No thyromegaly. Cardiovascular Examination: S1 and S2 heard. No murmurs, gallops, or rubs. Regular rate and rhythm. Respiratory Examination: Decreased breath sounds globally. Patient is not using any accessory muscles or having work of breathing. Abdomen: Soft. Nontender to palpation. Bowel sounds present. No organomegaly. Extremities: No clubbing or cyanosis. There is 2+ pitting edema in the lower extremities. Right upper extremity has 2+ edema. Neurological Examination: The patient is alert and oriented x3. Able to move 4 extremities. Cranial nerves 2-12 grossly normal. Laboratory Data: White cell count 33.9, hemoglobin is 8.9, hematocrit 25.3, platelets 166,000. Sodium 132, potassium 5.7, chloride 96, bicarbonate 11, BUN 141, creatinine 5.5. ASSESSMENT AND PLAN: 1. Sepsis secondary to Escherichia coli pyelonephritis. Currently, this patient is receiving meropenem and vancomycin. Dr. Hernandez is following this patient. We have checked 1 urine culture 1 week after the 1st urine culture obtained at admission and it is completely negative. For suspicion for Clostridium difficile infection, we have ordered Clostridium difficile stool studies which are negative so we are going to stop the vancomycin. 2. Left ureteral stone, status post cystoscopy. Dr. Gonzalez from urology has been following this patient. 3. Metabolic encephalopathy, improved. 4. Leukocytosis. White cell count is elevated, most probably because of this infection but patient is not developing any fever. She is feeling better. Infectious disease is following. 5. Metabolic acidosis/acute kidney injury. BUN and creatinine continue to rise cell so Dr. Vazquez is planning to do hemodialysis. Dr. Alanis has been consulted for intravenous access and she will be started on hemodialysis right after a catheter is placed. 6. Volume overload. condition will improve after dialysis is started. 7. Anemia of chronic disease, improved. She has received 2 units of blood cells 2 days ago. 8. Restless legs syndrome. Aware. The patient is on Requip. 9. Thrombocytopenia, improved. Today it is back to normal. 10. Gastrointestinal prophylaxis. We will continue with Protonix intravenously. Overall, this patient is doing good and although she is septic, the second urine culture returned positive. Patient is having a good blood pressure. She is not developing any fever. Although the white cell count is high, in this case I prefer to transfer this patient out of the intensive care unit. SANYA
--- NOTE | 2016-08-15 11:42 | Diag Imaging Result Document ---
PROCEDURE NAME: FLUROSCOPY CYSTO - 08/13/2016 LIMITED FLUOROSCOPIC IMAGES OF THE LOWER ABDOMEN AND PELVIS: COMPARISON: None available. FINDINGS: Sixteen spot fluoroscopic images were provided during left ureteral stent placement by Dr. Shyam Gonzalez. On the final image, the newly placed left ureteral stent is identified in the expected position. IMPRESSION: As above. Please correlate with live fluoroscopic imaging.
[2016-08-15] MEDS: LOVAZA PO SCH ×2 (13:37→20:42)
[2016-08-15] MEDS: CITRACAL + D PO SCH (13:37)
[2016-08-15] MEDS: COLACE PO SCH (13:37)
--- NOTE | 2016-08-15 18:52 | OPERATIVE NOTE ---
PROCEDURE DATE: 08/15/2016 PROCEDURE PERFORMED: Right femoral vein Vas-Cath with placement with ultrasound guidance. SURGEON: Jeffy Alanis MD. PROCESS CONTROL MANAGER: Allison Geronimo PREOPERATIVE DIAGNOSES: 1. Acute kidney injury. 2. Exacerbation of chronic renal insufficiency. POSTOPERATIVE DIAGNOSES: 1. Acute kidney injury. 2. Exacerbation of chronic renal insufficiency. DESCRIPTION OF PROCEDURE: The right groin was prepped and draped in a sterile fashion. We ultrasounded the groin and identified the femoral artery and femoral vein. We anesthetized the skin and subcutaneous tissue and deep in the leg. We then made a small stab incision under ultrasound guidance and accessed the femoral vein. We then passed the guidewire without difficulty. We dilated the tract sequentially. First we tried the Trilisate catheter, but it would not advance. So, we switched to a Mahurkar 19.5 cm Mahurkar which we easily went in to the extent that it would go. Blood came back in each lumen spontaneously. We flushed each lumen with saline. Because of the discrepancy and size, we had to place a pursestring stitch in the skin at the exit site to achieve complete hemostasis. This was a 3-0 nylon. We used 2-0 nylon through the subcutaneous tissue and the hole in the rim of the catheter to secure it to the skin. Betadine ointment and sterile OpSite was applied. She tolerated it well.
[2016-08-15] MEDS ORDERED: FLEBOGAMMA DIF 5% IV ONE (19:30)
--- NOTE | 2016-08-15 20:23 | PROGRESS NOTE ---
DATE: 08/15/2016 PRESENT ILLNESS: The patient has an extended spectrum beta-lactamase producing E. coli urinary tract infection. She has had obstruction to her ureter and a stent has been placed to bypass this by Dr. Gonzalez. Her chest x-ray at first I thought was due to pneumonia but now I think it is most likely due to venous congestion and not pneumonia. The patient also has a low IgG level of 535. The patient has a PICC present in the right arm. She appears to have a right groin a dialysis catheter in place. MEDICATIONS: The patient currently is on a combination of meropenem and ceftaroline. PHYSICAL EXAMINATION: Vital Signs: Temperature 97.7 degrees, pulse 93, respirations 14, blood pressure 145/51. General: This is a somewhat ill-appearing, elderly female, who is in no acute distress. Lungs: Clear to auscultation. Cardiovascular: Regular heart rate. Abdomen: Soft and nontender. LAB AND X-RAY: The patient's CBC shows a white count of 33,900, hemoglobin 8.9, and platelet count 166,000. Creatinine is 5.5. GFR is 8. The patient's IgG is 535. ASSESSMENT AND PLAN: The patient has an extended spectrum beta-lactamase producing E. coli urinary tract infection. It would appear that something else must be going on in view of the fact that the patient is still very ill despite having treatment for a urinary tract infection and despite that a stent was placed in the ureter to bypass the obstruction. What this other thing is uncertain to me at this time. My plan now is to continue with meropenem and discontinue ceftaroline. Also, I am going to give the patient 1 dose of gammaglobulin to improve her IgG level and hopefully this will benefit her fighting the infection. COMORBIDITIES: Patient has bipolar disorder, gastroesophageal reflux disease and urinary incontinence. 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
[2016-08-15] MEDS: REMERON PO SCH (20:41)
[2016-08-15] MEDS: PRAVACHOL PO SCH (20:41)
[2016-08-15] MEDS: DESYREL PO SCH (20:42)
[2016-08-15] MEDS: DEPAKOTE PO SCH (20:44)
[2016-08-16] MEDS: DUONEB (A & A) INH SCH ×6 (02:12→23:32)
[2016-08-16] MEDS: NORCO-7.5 PO PRN ×3 (02:40→17:59)
[2016-08-16] MEDS: MERREM 500 MG in NS 50 ML IV SCH (05:59)
[2016-08-16 06:40] LABS: BASO% 0.3 % (0.0-0.8); EOS% 0.7 % (0.0-10.0); HEMATOCRIT 22.9 % (37.0-47.0); HEMOGLOBIN 8.1 g/dL (12.0-16.0); IMM GRAN# 1.24 X1000 (0.0-0.04); IMM GRAN% 4.6 % (0.0-0.5); LYMPH# 1.92 X1000 (1.2-3.4); LYMPH% 7.1 % (20.5-51.1); MANUAL DIFF NEEDED? YES; MCH 31.5 PG (27-31); MCHC 35.4 g/dL (33-37); MCV 89.1 FL (81-99); MONO# 2.34 X1000 (0.11-0.59); MONO% 8.7 % (1.7-9.3); MPV 10.9 FL (7.4-10.4); NEUT% 78.6 % (42.2-75.2); PLT 325 X1000 (130-400); RBC 2.57 XMIL (4.2-5.4)
[2016-08-16 07:30] LABS: AGAP 21; ALBUMIN 2.4 g/dL (3.5-5.0); ALKALINE PHOSPHATASE 112 U/L (32-104); CALCIUM 8.2 mg/dL (8.8-10.2); CHLORIDE 97 mmol/L (98-107); GOT 37 U/L (10-30); GPT < 5 U/L (10-36); SODIUM 131 mmol/L (136-145); TCO2 13 mmol/L (25-35); TOTAL BILIRUBIN 0.55 mg/dL (0.20-1.00); TOTAL PROTEIN 4.6 g/dL (6.3-8.3)
[2016-08-16] MEDS ORDERED: TIGHT: 0.2 ML/HR MISC PRN (07:35)
[2016-08-16] MEDS ORDERED: HEPARIN IV PRN (07:35)
[2016-08-16 07:45] LABS: BUN 151 mg/dL (8-22); COSMO 311
--- NOTE | 2016-08-16 07:46 | Diag Imaging Result Document ---
PROCEDURE NAME: CHEST-PORTABLE - 08/16/2016 AP PORTABLE CHEST AT 0500 HOURS: FINDINGS: There is a PICC line on the right. There is hazy opacity over both lower lung matos consistent with pulmonary edema. Considering differences in inspiration and positioning, there has been no significant change since 08/15/2016. IMPRESSION: Pulmonary edema.
[2016-08-16 08:01] LABS: LYMPHS 4 % (21-51); MONO 6 % (1-9)
[2016-08-16 08:02] LABS: POTASSIUM 6.2 mmol/L (3.5-5.1)
[2016-08-16] MEDS ORDERED: VELTASSA PO ONE (08:31)
--- NOTE | 2016-08-16 10:15 | CONSULTATION ---
DATE OF CONSULTATION: 08/13/2016 ADMITTING PHYSICIAN: Dr. Jarret Swift. REQUESTING PHYSICIAN: Dr. Jarret Swift. We appreciate this consult. CHIEF COMPLAINT: Thrombocytopenia. HISTORY OF PRESENT ILLNESS: Ms. Trujillo is a pleasant 66-year-old female, who presented to [facility] Emergency Department secondary to complaints of feeling profound weakness that was generalized. She states that she had a fall from her bed one week prior to presentation, and states that she uses a walker secondary to hip surgery and back surgery. Upon presentation to [facility], the patient had a sodium of 116, potassium 3.2, chloride 77, BUN was 24 with a creatinine of 1.4. ProBNP was found to be 3346. White blood cell count was 16.99. The patient was found to have a urinary tract infection upon presentation. She was admitted for evaluation and treatment. Ultimately, the patient was transferred to [facility] secondary to profound thrombocytopenia and worsening condition. PAST MEDICAL HISTORY: 1. Hypertension. 2. Hyperlipidemia. 3. Gastroesophageal reflux disease. 4. Irritable bowel syndrome. 5. Bipolar disorder. 6. Depression. 7. Pelvic fracture. 8. Restless leg syndrome. 9. Anorexia. 10. Bulimia. PAST SURGICAL HISTORY: 1. Cholecystectomy. 2. Hysterectomy. 3. Total hip replacement. 4. Back surgery. 5. Neck surgery. SOCIAL HISTORY: The patient has a 20 year, half pack a day, history of smoking cigarettes. She denies any illicit drug or alcohol. MEDICATIONS ON ADMISSION: 1. Ibuprofen. 2. Remeron. 3. Trazodone. 4. Citracal. 5. Vitamin D. 6. Depakote. 7. Docusate sodium. 8. Vitamin D 2. 9. Hydrocodone. 10. Movantik. 11. Lovaza. 12. Prilosec. 13. Pravachol. ALLERGIES: Olanzapine. REVIEW OF SYSTEMS: A 14 point review of systems was obtained and is negative, except for as mentioned in HPI. PHYSICAL EXAM: General: Ms Trujillo is a pleasant 66-year-old, female, lying supine in bed, who appears quite ill. Vital Signs: Temperature 97.6, blood pressure 126/46, heart rate 89, respirations 18, O2 saturation is 98% on 3 L nasal cannula O2. HEENT: Normocephalic, atraumatic. Mucous membranes are pale and dry. Sclerae is anicteric. Extraocular movements intact. Neck: Supple. Lungs: Clear to auscultation bilaterally. Chest expansion is equal bilaterally. CV: S1, S2 is heard without murmur, rub or gallop. Abdomen: Soft, nondistended, nontender. Bowel sounds positive in all quadrants. No rebound or guarding noted. Extremities: Without clubbing, cyanosis, or edema. Dermatologic: No rashes, bruises or lesions. Neurologic: The patient is awake. She is oriented x3. She is slow to respond, She has no focal motor deficit at this time. LABORATORY DATA: Hemoglobin 7.1, hematocrit 19.9. White blood cell count is 34.69, platelet count 45,000. ANC 24.92. Sodium 129, potassium 4.8, chloride 95, CO2 is 14. BUN 121, creatinine 4.2, glucose is 68, calcium is 8.3, and phos is 6.6. ASSESSMENT AND PLAN: 1. Thrombocytopenia, most likely related to sepsis, with a platelet count of 45,000. She is status post platelet transfusion. We will initiate workup and follow along with you. 2. Anemia with a hemoglobin of 7.1. We will follow along and transfuse packed red blood cells as necessary. If hemoglobin drops below 8, we will transfuse at this time. 3. Leukocytosis, likely reactive secondary to sepsis. 4. Urinary tract infection currently on antibiotics with infectious disease currently following. 5. Hypertension, which is well controlled at this time with a blood pressure of 126/46. 6. Bipolar disorder, stable. 7. Hyponatremia, improving with a sodium of 129 today. We will follow along with you and make further recommendations pending outcomes. The above reflects the history, exam, assessment and plan of Dr. Doss. Dictated by VAN Singletary for Maurizio Doss MD
[2016-08-16 12:28] LABS: RETIC% 1.75 % (0.8-2.1); RETIC-HE 37.5 PG (28.2-36.6)
[2016-08-16] MEDS ORDERED: NS 2,000 ML ONE (13:25)
[2016-08-16] MEDS ORDERED: HEPARIN ONE (13:25)
--- NOTE | 2016-08-16 13:32 | PROGRESS NOTE ---
DATE: 08/16/2016 SUBJECTIVE: Patient states that she feels somewhat better today. She has had some nausea, however. OBJECTIVE: Vital Signs: Temperature 98.3 degrees, pulse 102, respiratory rate 16, blood pressure 137/57. Intake 303 mL. Output 1.7 L of urine. General: Middle-aged female, resting in bed. No acute distress. HEENT: Normocephalic, atraumatic. Oral mucosa is moist. Neck : Supple. Trachea midline. Cardiovascular: Regular rate and rhythm. S4. Pulmonary: Equal excursion. She is clear bilaterally. Abdomen: Soft. Positive bowel sounds. : Not inspected. Extremities: With 2+ pretibial edema and dependent edema noted up to the thighs. No clubbing or cyanosis. LAB DATA: WBC of 26.8, hemoglobin 8.1, hematocrit 22.9, platelet count of 325, 000. Sodium 131, potassium 6.2, CO2 13, BUN 151, creatinine 5.6, calcium 8.2, phosphorus 9.1, iron saturation 51%, albumin 2.4. ASSESSMENT AND PLAN: 1. Acute kidney injury. Patient had dialysis catheter placed yesterday. We will plan to try to dialyze again today. 2. Electrolytes, acid-base balance. Dialyze again today. 3. Fluid volume overload. Two to 3 L as tolerated. Seen, data reviewed, discussed with Mila Gusman on 08/16/16. I agree with the above assessment and plan of care. rg Dictated by VAN Lim for Kain Vazquez MD [facility]
--- NOTE | 2016-08-16 15:31 | PROGRESS NOTE ---
DATE: 08/16/2016 PRESENT ILLNESS: The patient is being treated for an extended spectrum beta lactamase producing Escherichia coli urinary tract infection. She has had a stent placed by Dr. Gonzalez in an obstructed ureter. MEDICATIONS: The patient is on meropenem as a single drug. PHYSICAL EXAMINATION: Vital Signs: Temperature is 98 degrees, pulse 103, respirations 18, blood pressure 129/43. Generally, the patient appears to be chronically ill. Currently, she is on dialysis and is sleeping. Lungs clear to auscultation. Cardiovascular: Heart rate is regular. Abdomen soft and nontender. The patient has a PICC in the right arm. She has a dialysis catheter in the right groin. Both those areas are not erythematous. LABORATORY DATA AND X-RAY: There is no new x-ray. The CBC today showed that the white count is coming down. It is down to 26,880. Hemoglobin 8.1 and platelet count 325,000. Creatinine is 5.6. The GFR is 8. A repeat urine culture is sterile. ASSESSMENT AND PLAN: The patient has an extended spectrum beta lactamase producing Escherichia coli urinary tract infection. It appears now that the patient is getting better with clearing of the urinary tract infection. The patient also was found to have a low IgG level at 535. She received a dose of gammaglobulin yesterday and, possibly, this may have helped getting her better also. The patient's comorbidities are urinary incontinence, bipolar disorder, gastroesophageal reflux disease, and a low IgG level.
[2016-08-16] MEDS: NS 2,000 ML MISC PRN ×2 (16:30→18:47)
--- NOTE | 2016-08-16 16:47 | Extremity Venous Study ---
PROCEDURE NAME: Venous U/S Right Arm - 08/14/2016 CHIEF COMPLAINT: Edema of the right arm. A PICC line has been present since 08/09. The right her upper extremity is imaged. The internal jugular, subclavian, axillary, brachial, cephalic vein proximally and the brachial veins are imaged. All are compressible. The left subclavian is imaged for comparison purposes. INTERPRETATION: No evidence of deep or superficial venous thrombosis. Right upper extremity veins identified.
[2016-08-16] MEDS: DURAGESIC 12 MICROGM/HR PATCH TD SCH (17:59)
[2016-08-16] MEDS: COLACE PO SCH (18:00)
[2016-08-16] MEDS: CITRACAL + D PO SCH (18:00)
[2016-08-16] MEDS: SODIUM CHLORIDE 0.9% INJ SCH ×2 (18:00→20:18)
[2016-08-16] MEDS: LOVAZA PO SCH ×2 (18:00→20:19)
[2016-08-16] MEDS: PROTONIX IV SCH ×2 (18:00→20:18)
--- NOTE | 2016-08-16 18:48 | PROGRESS NOTE ---
DATE: 08/16/2016 SUBJECTIVE: Patient reports not feeling good with general weakness but denies any fever or chills. Both legs very sensitive to touch. OBJECTIVE: Vital Signs: Temperature 98.2 degrees, heart rate 110, respiratory rate 18, blood pressure 133/49, O2 saturation 94% on room air. General Examination: This is a chronically ill appearing and frail 66-year-old female lying in bed in no acute distress. HEENT: Head is normocephalic, atraumatic. Anicteric sclerae and pale conjunctivae. Mucous membranes are dry. Neck: Supple. No JVD noted. No carotid bruits. No lymphadenopathy. No thyromegaly. Cardiovascular Examination: S1-S2 heard. No murmurs, gallops, rubs. Regular rate and rhythm. Respiratory: Decreased breath sounds globally but patient is not using any accessory muscles or having work of breathing. Abdomen: Soft, nontender to palpation. Bowel sounds present. No organomegaly. Extremities: There is a superficial hematoma which is right up to the There is no fluctuance . Also right upper extremity has 2+ pitting edema. Neurologic: Patient alert, oriented x3. A little bit sleepy but able to move 4 extremities. LABORATORY DATA: White cell count 26.88, hemoglobin 8.1, hematocrit 22.5, platelets 325,000. Sodium 131, potassium 6.2, chloride 97, bicarbonate 13, BUN 151, creatinine 5.6. ASSESSMENT AND PLAN: 1. Sepsis secondary to Escherichia coli. The patient is receiving meropenem in as per Dr. Hernandez. This is a extended spectrum beta-lactamase infection. Patient is not developing any fever although she is still reporting general malaise. At this point we are going to continue with the same management. 2. Left ureteral stone status post cystoscopy. Following recommendations from urology. 3. Metabolic encephalopathy improved. 4. Leukocytosis. White cell count is still high although improving with just meropenem. We are going to continue with the same management. 5. Acute on chronic kidney disease. Nephrology has taken decision to start hemodialysis. Unfortunately when it was attempted to perform that patient was not able to and apparently there was a problem with the IV access so at this time they are going to try hemodialysis again. Will follow recommendations from Dr. Vazquez. 6. Metabolic acidosis secondary to acute kidney injury as we mentioned above. 7. Anemia chronic disease. Two days ago patient has received 2 units of blood and the hemoglobin is by now stable. 8. Restless legs syndrome. Aware. 9. Thrombocytopenia resolved. 10. Gastrointestinal prophylaxis with Protonix.
[2016-08-16] MEDS: PRAVACHOL PO SCH (20:18)
[2016-08-16] MEDS: DESYREL PO SCH (20:18)
[2016-08-16] MEDS: REMERON PO SCH (20:19)
[2016-08-16] MEDS: DEPAKOTE PO SCH (20:19)
[2016-08-16] MEDS: NS 500 ML IV SCH (20:20)
[2016-08-17] MEDS: NORCO-7.5 PO PRN ×4 (00:04→16:38)
[2016-08-17] MEDS: DUONEB (A & A) INH SCH ×6 (03:53→23:20)
[2016-08-17] MEDS: MERREM 500 MG in NS 50 ML IV SCH (06:05)
[2016-08-17 06:39] LABS: MANUAL DIFF NEEDED? NO
[2016-08-17 06:52] LABS: BASO% 0.2 % (0.0-0.8); EOS% 0.6 % (0.0-10.0); HEMATOCRIT 24.1 % (37.0-47.0); HEMOGLOBIN 8.2 g/dL (12.0-16.0); IMM GRAN# 0.34 X1000 (0.0-0.04); IMM GRAN% 1.9 % (0.0-0.5); LYMPH# 1.66 X1000 (1.2-3.4); LYMPH% 9.5 % (20.5-51.1); MCH 30.1 PG (27-31); MCV 88.6 FL (81-99); MONO# 1.56 X1000 (0.11-0.59); MONO% 8.9 % (1.7-9.3); MPV 10.2 FL (7.4-10.4); NEUT% 78.9 % (42.2-75.2); PLT 417 X1000 (130-400); RBC 2.72 XMIL (4.2-5.4)
[2016-08-17 07:17] LABS: CALCIUM 8.5 mg/dL (8.8-10.2); POTASSIUM 5.1 mmol/L (3.5-5.1)
[2016-08-17] MEDS ORDERED: NS 2,000 ML ONE (07:31)
[2016-08-17] MEDS ORDERED: HEPARIN ONE (07:31)
[2016-08-17] MEDS ORDERED: NS 2,000 ML MISC PRN (07:37)
[2016-08-17] MEDS ORDERED: TIGHT: 0.2 ML/HR MISC PRN (07:37)
[2016-08-17] MEDS ORDERED: HEPARIN IV PRN (07:37)
--- NOTE | 2016-08-17 10:04 | PROGRESS NOTE ---
DATE: 08/17/2016 PRESENT ILLNESS: The patient is being treated for an extended spectrum beta lactamase producing E. coli urinary tract infection. The patient has had a stent placed in an obstructed ureter. MEDICATIONS: The patient is being treated with meropenem as a single agent. She has been on meropenem for 3 days. PHYSICAL EXAMINATION: Vital Signs: The patient's temperature is 98.6 degrees, pulse 103, respirations 14, blood pressure 139/57. General: The patient today looks much better. She is awake and smiling and talking. Lungs: Clear to auscultation. Cardiovascular: Regular heart rate. Abdomen: Slightly swollen, but is soft and not tender. In the right groin, the patient has a dialysis catheter in place. LABORATORY AND X-RAY: There is no new x-ray. The patient's CBC today showed a white count of 17,460, hemoglobin 8.2m and platelet count 417,000. Creatinine is 4.1. The GFR is 11. ASSESSMENT AND PLAN: I plan to continue the patient's meropenem for her Escherichia coli urinary tract infection. The patient earlier was found to have a low IgG level at 535, for which she received a dose of gammaglobulin. My plan will be to repeat the immunoglobulin level tomorrow morning. COMORBIDITIES: Include urinary incontinence, bipolar disorder, gastroesophageal reflux disease, and low IgG level.
[2016-08-17 10:53] LABS: HEPATITIS PROFILE ACUTE SEE COMMENTS (())
[2016-08-17] MEDS: LOVAZA PO SCH ×2 (12:35→21:50)
[2016-08-17] MEDS: COLACE PO SCH (12:35)
[2016-08-17] MEDS: CITRACAL + D PO SCH (12:35)
[2016-08-17] MEDS: SODIUM CHLORIDE 0.9% INJ SCH ×2 (12:35→21:50)
[2016-08-17] MEDS: PROTONIX IV SCH ×2 (12:35→21:50)
[2016-08-17] MEDS ORDERED: EPOGEN SUBQ SCH (12:45)
--- NOTE | 2016-08-17 13:46 | PROGRESS NOTE ---
DATE: 08/17/2016 SUBJECTIVE: The patient is sitting up in bed. She states that she feels somewhat better today. She underwent dialysis yesterday without incident. OBJECTIVE: Vital Signs: Temperature 98.1 degrees, pulse 96, respiratory rate 18, blood pressure 117/50. Intake 550 mL; output 3.7 L. General: Middle-aged to elderly female resting in bed. She is awake and alert in no acute distress. HEENT: Normocephalic, atraumatic. Oral mucosa is moist. Neck: Supple. Trachea midline. Cardiovascular: Reveals regular rate and rhythm, S4. Pulmonary: She has equal excursion. She is clear bilaterally. She has no increased work of breathing. Abdomen: Soft with positive bowel sounds. : As stated. Extremities: 2+ pretibial edema along with dependent edema noted up to the thighs. She has Vas- Cath noted to the groin. No clubbing or cyanosis noted. Integumentary: Skin is pale, warm and dry. LAB DATA: WBC of 17.4, hemoglobin 8.2, hematocrit 24.1, platelet count of 417. Sodium 140, potassium 5.1, CO2 17, BUN 95, creatinine 4.1, calcium 8.5, phosphorus 6.0. ASSESSMENT AND PLAN: 1. Acute kidney injury with dialysis requirements now. We dialyzed the patient yesterday without incident. She did have 2 L removed ultrafiltrate on dialysis. Plan to dialyze again today and likely tomorrow. 2. Electrolytes, acid-base balance. Again, dialyze today. Bath as warranted. 3. Fluid overload. She had 2 L removed on dialysis and had 1.7 L of urine output. Continue to monitor. Seen, data reviewed, discussed with Mila Gusman on 08/17/16. I agree with the above assessment and plan of care. rg Dictated by VAN Lim for Kain Vazquez MD [facility]ITALAnup
--- NOTE | 2016-08-17 15:55 | PROGRESS NOTE ---
DATE: 08/17/2016 SUBJECTIVE: Patient reports feeling much better after 2 sessions of hemodialysis yesterday and today. She is still complaining of very sensitive in both lower extremities. OBJECTIVE: Vital Signs: Temperature 97.7 degrees, heart rate 92, respiratory rate 14, blood pressure 126/42. O2 saturation 100% on room air. General: This is a chronically ill-appearing, frail, 66-year-old female lying in bed in no acute distress. HEENT: Head is normocephalic, atraumatic. Anicteric sclerae and pale conjunctivae. Mucous membranes moist. Neck supple. No JVD noted. No carotid bruits. No lymphadenopathy. No thyromegaly. Cardiovascular: S1, S2 heard. No murmurs, gallops, or rubs. Regular rate and rhythm. Respiratory: Clear bilaterally to auscultation. No work of breathing or using accessory muscles. Abdomen is soft, nontender to palpation. Bowel sounds present. No organomegaly. A little bit distended. Extremities: Superficial hematoma on the right side of the right arm, but there is no fluctuance. Neurologic: Patient alert and oriented x3. Moves 4 extremities. Cranial nerves 2-12 grossly normal. LABORATORY DATA: White cell count 17.46, hemoglobin 8.2, hematocrit 24.1, platelets 417,000. BMP unremarkable except creatinine of 4.1 and BUN 95. ASSESSMENT AND PLAN: 1. Sepsis secondary to extended-spectrum beta-lactamase Escherichia coli. Will continue with meropenem. Dr. Hernandez is following this patient. White cell count is getting better day by day. We will continue with the same management. 2. Left ureteral stone, status post cystoscopy, improved. 3. Metabolic encephalopathy, almost resolved. 4. Leukocytosis. That condition is getting better. We will continue with the same treatment. 5. [id number] kidney disease. Nephrology is following this patient. The patient has so far had 2 sessions of hemodialysis. We will continue with same management. 6. Anemia of chronic disease, stable. 7. Restless leg syndrome, aware. 8. Thrombocytopenia, resolved. 9. Swelling of both legs. We are going to check an ultrasound to see if there is any deep venous thrombosis there.
[2016-08-17] MEDS: DURAGESIC 50 MICROGM/HR PATCH TD SCH (16:49)
[2016-08-17] MEDS: NS 500 ML IV SCH (16:56)
[2016-08-17] MEDS: DEPAKOTE PO SCH (21:49)
[2016-08-17] MEDS: DESYREL PO SCH (21:50)
[2016-08-17] MEDS: PRAVACHOL PO SCH (21:50)
[2016-08-17] MEDS: REMERON PO SCH (21:50)
[2016-08-17] MEDS: REQUIP PO SCH (21:59)
[2016-08-18] MEDS: DUONEB (A & A) INH SCH ×6 (03:18→23:30)
[2016-08-18] MEDS: MERREM 500 MG in NS 50 ML IV SCH (06:00)
[2016-08-18] MEDS ORDERED: NS 2,000 ML MISC PRN ×2 (06:07→09:24)
[2016-08-18] MEDS ORDERED: TIGHT: 0.2 ML/HR MISC PRN ×2 (06:07→09:24)
[2016-08-18] MEDS ORDERED: HEPARIN IV PRN ×2 (06:07→09:24)
--- NOTE | 2016-08-18 06:15 | Extremity Venous Study ---
PROCEDURE NAME: Venous U/S Bilateral Legs - 08/17/2016 REFERRING PHYSICIAN: Dr. Pace. INTERPRETING PHYSICIAN: Jeffy Alanis MD. BUSINESS INSURANCE AGENT: Zeb. FINDINGS: The bilateral lower extremity venous image is accomplished. The patient has edema of the legs. The right groin was not imaged well due to a Vas-Cath in the right groin. All other veins of the lower extremities were imaged, the left common femoral, superficial femoral, deep femoral on both sides, popliteal on both sides, posterior tibial, peroneal on both sides, greater saphenous veins on both sides. Doppler was used to evaluate the veins for spontaneity, phasicity, respiratory excursion, and distal augmentation. All veins are compressible that are identified. INTERPRETATION: No evidence of deep or superficial venous thrombosis in either lower extremity veins identified. The right groin imaging was limited due to the Vas-Cath in the femoral vein.
[2016-08-18] MEDS: NORCO-7.5 PO PRN (06:29)
[2016-08-18 07:09] LABS: ALBUMIN 2.3 g/dL (3.5-5.0); CALCIUM 8.9 mg/dL (8.8-10.2); POTASSIUM 5.2 mmol/L (3.5-5.1)
--- NOTE | 2016-08-18 09:21 | PROGRESS NOTE ---
DATE: 08/18/2016 PRESENT ILLNESS: The patient has an extended spectrum beta lactamase producing E. coli urinary tract infection. MEDICATIONS: The patient is being treated with meropenem as a single agent. She has also had a stent placed in the obstructed ureter. The patient now is on meropenem for 4 days. PHYSICAL EXAMINATION: Vital Signs: Temperature is 97.9 degrees, pulse 86, respirations 16, blood pressure 132/59. Lungs: Clear to auscultation. Cardiovascular: Regular heart rate. Abdomen: Soft and nontender. Extremities: The patient has a PICC in her right arm and a dialysis catheter in the right groin. Both sites are not erythematous or tender. LAB AND X-RAY: The CBC for yesterday showed a white count of 17,460, hemoglobin 8.2, and platelet count 417,000. Creatinine is 4. The GFR is 11. Venous Doppler study of both legs showed no deep or superficial thrombosis. ASSESSMENT AND PLAN: I plan to continue with meropenem for the patient's E. coli urinary tract infection. The patient already has received a dose of gammaglobulin for her low IgG level. The level of IgG that was sent out 2 days ago is not back yet. We will continue to treat her with the antibiotic. COMORBIDITIES: Include urinary incontinence, bipolar disorder, gastroesophageal reflux disease, and a low IgG level.
[2016-08-18 13:33] LABS: MANUAL DIFF NEEDED? NO
[2016-08-18 13:37] LABS: BASO% 0.2 % (0.0-0.8); EOS# 0.08 X1000 (0.0-0.7); EOS% 0.5 % (0.0-10.0); HEMATOCRIT 27.2 % (37.0-47.0); HEMOGLOBIN 9.2 g/dL (12.0-16.0); IMM GRAN# 0.14 X1000 (0.0-0.04); IMM GRAN% 0.8 % (0.0-0.5); LYMPH# 1.61 X1000 (1.2-3.4); LYMPH% 9.6 % (20.5-51.1); MCHC 33.8 g/dL (33-37); MCV 91.6 FL (81-99); MONO# 0.74 X1000 (0.11-0.59); MONO% 4.4 % (1.7-9.3); MPV 10.3 FL (7.4-10.4); NEUT% 84.5 % (42.2-75.2); PLT 507 X1000 (130-400); RBC 2.97 XMIL (4.2-5.4)
[2016-08-18] MEDS: LOVAZA PO SCH ×2 (14:08→20:59)
[2016-08-18] MEDS: COLACE PO SCH (14:08)
[2016-08-18] MEDS: PROTONIX IV SCH ×2 (14:08→21:00)
[2016-08-18] MEDS: SODIUM CHLORIDE 0.9% INJ SCH ×2 (14:08→21:00)
[2016-08-18] MEDS: CITRACAL + D PO SCH (14:08)
--- NOTE | 2016-08-18 15:45 | PROGRESS NOTE ---
DATE: 08/18/2016 SUBJECTIVE: Ms. Marisela Trujillo is a 66-year-old female who is in no acute distress. She has family at bedside. Alert and talkative, stating she wants to go home. She did have some generalized pain overnight but states that Dr. Vazquez is adjusting her pain medications. She just recently returned back from having hemodialysis. OBJECTIVE: Vital signs: Temperature 97.9 degrees, heart rate 86, respiratory rate 18, blood pressure 132/59, O2 saturation 98% on room air. Weight prior to dialysis was 191 pounds. Weight afterwards was 187 pounds. General: Ms. Trujillo is a 66-year-old female. She is in no acute distress. Is able to answer all questions appropriately Cardiovascular: S1, S2. Regular rate and rhythm. No rubs, gallops, or murmurs. Pulmonary: Clear to auscultation. Bilateral breath sounds decreased in the bases. Neurologic: Oriented. Generalized weakness. Skin: Warm, dry, intact. Right femoral dialysis catheter. No signs or symptoms of infection. Extremities: She has +2 to +3 lower extremity edema pretibial, all the way down to the feet. Her extremity pulses: Dorsalis pedal +2 and +2 radials. LABORATORY DATA: White blood cells 16,000. Hemoglobin 9.2, hematocrit 27.2, platelet count 507,000. Sodium 137, potassium 5.2, BUN 83, creatinine is 4.0, glucose 96, phosphorus 7.0, albumin 2.3. IMAGING: Bilateral venous ultrasound negative for DVT. The femoral is limited due to the Vas- Cath placement. ASSESSMENT AND PLAN: 1. Sepsis secondary to extended spectrum beta lactamase Escherichia coli urinary tract infection. Sepsis has resolved. She still has the UTI. She is receiving meropenem and is being followed by Dr. Hernandez and IgG levels are pending. Vitals are stable. 2. Left ureteral stone status post cystoscopy with stent placement by Dr. Gonzalez. She has a Hardwick catheter which is averaging about 1,700 mL every 24 hours of urine output. 3. Metabolic encephalopathy, resolved. 4. Leukocytosis. This could be a number of factors. It could be secondary to inflammation of everything that is going on as far as her kidney dysfunction and her urinary tract infection. It is improving slowly, daily. Consider reordering C. difficile but currently no bowel movements in the last 2 days. 5. Acute kidney injury on chronic kidney disease, now stage 5 end-stage renal disease. Receiving dialysis. Today was her 3rd round of dialysis. Dr. Vazquez is following. 6. Anemia. It is chronic. It is stable. 7. Thrombocytopenia has resolved and now we have thrombocytosis. Again, this could be inflammatory. May add a lactate to the lab work for in the morning. 8. Restless leg syndrome. 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 Physical therapy and occupational therapy has been ordered and patient has been instructed to exercise legs in bed. She does have a mild degree of footdrop in both feet. Right leg is somewhat disabled given the dialysis catheter in the right groin. Consider maybe moving the catheter to another location so she can start attempting ambulation. 9. Bilateral lower extremity edema. Venous ultrasound of lower extremities was negative for DVT. A lot of swelling could be due to not moving her leg. 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 Dr. Hernandez is following. Dictated by VAN Starkey for Jordan Londono MD
--- NOTE | 2016-08-18 17:08 | PROGRESS NOTE ---
DATE: 08/18/2016 SUBJECTIVE: Patient is resting in bed. She is eating when I see her. OBJECTIVE: Vital Signs: Temperature 97.9 degrees, pulse 87, respiratory rate 16, blood pressure 132/59. Intake 480 mL. Output 3.8 L. General: Middle-aged elderly female resting in bed. No acute distress. She is eating some crackers and peanut butter. HEENT: Is normocephalic atraumatic. Oral mucosa moist. Neck: Supple. Trachea midline. Cardiovascular: Regular rate and rhythm with gallop. Pulmonary: She has equal excursion. She is clear bilaterally. She has no increased work of breathing. Abdomen: Soft, positive bowel sounds. : Voiding. Extremities: 2+ pretibial edema with dependent edema to the thighs. Integumentary: Skin is warm and dry. She has a Vas-Cath noted to the right groin. Integumentary: Skin is warm and dry. LAB DATA: WBC of 16.7, hemoglobin 9.2. Sodium 137, potassium 5.2, CO2 20, creatinine 4.0. She had a protein electrolytes with monoclonal bands and 1 with IgM lambda specificity. ASSESSMENT AND PLAN: 1. Acute kidney injury with dialysis requirements. We dialyzed her today for her 3rd treatment. We will plan to hold dialysis tomorrow and recheck her labs on Monday. She did have some additional labs that have come back. We will need to complete that workup. 2. Electrolytes, acid-base balance, anemia. Fluid volume are all stable. Seen, data reviewed, discussed with Mila Gusman on 08/19/16. I agree with the above assessment and plan of care. rg Dictated by VAN Lim for Kain Vazquez MD [facility]
[2016-08-18] MEDS: NS 500 ML IV SCH (17:23)
[2016-08-18] MEDS: REQUIP PO SCH (20:59)
[2016-08-18] MEDS: REMERON PO SCH (20:59)
[2016-08-18] MEDS: DESYREL PO SCH (20:59)
[2016-08-18] MEDS: DEPAKOTE PO SCH (20:59)
[2016-08-18] MEDS: PERICOLACE PO SCH (20:59)
[2016-08-18] MEDS: PRAVACHOL PO SCH (20:59)
[2016-08-19] MEDS: MERREM 500 MG in NS 50 ML IV SCH ×2 (05:36→14:15)
[2016-08-19] MEDS: NS 500 ML IV SCH (05:37)
[2016-08-19] MEDS: DUONEB (A & A) INH SCH ×6 (05:39→22:49)
[2016-08-19 06:21] LABS: MANUAL DIFF NEEDED? NO
[2016-08-19 07:03] LABS: BASO% 0.2 % (0.0-0.8); EOS# 0.09 X1000 (0.0-0.7); EOS% 0.8 % (0.0-10.0); HEMATOCRIT 24.3 % (37.0-47.0); HEMOGLOBIN 8.2 g/dL (12.0-16.0); IMM GRAN# 0.07 X1000 (0.0-0.04); IMM GRAN% 0.6 % (0.0-0.5); LYMPH# 1.76 X1000 (1.2-3.4); LYMPH% 15.2 % (20.5-51.1); MCH 31.5 PG (27-31); MCHC 33.7 g/dL (33-37); MCV 93.5 FL (81-99); MONO% 6.9 % (1.7-9.3); MPV 9.6 FL (7.4-10.4); NEUT% 76.3 % (42.2-75.2); PLT 483 X1000 (130-400)
[2016-08-19 07:09] LABS: CALCIUM 8.8 mg/dL (8.8-10.2); POTASSIUM 4.5 mmol/L (3.5-5.1)
[2016-08-19] MEDS ORDERED: NS 2,000 ML ONE (08:16)
[2016-08-19] MEDS ORDERED: HEPARIN ONE (08:16)
[2016-08-19] MEDS ORDERED: NS 2,000 ML MISC PRN ×2 (08:52→10:26)
[2016-08-19] MEDS ORDERED: HEPARIN IV PRN ×2 (08:52→10:26)
[2016-08-19] MEDS ORDERED: TIGHT: 0.2 ML/HR MISC PRN ×2 (08:52→10:26)
[2016-08-19] MEDS: CITRACAL + D PO SCH (09:34)
--- NOTE | 2016-08-19 10:21 | PROGRESS NOTE ---
DATE: 08/19/2016 PRESENT ILLNESS: The patient has an extended spectrum beta lactamase producing E. coli urinary tract infection. The patient also has a low IgG level at 535. MEDICATIONS: The patient is receiving meropenem as a single dose daily. She also has received an infusion of gammaglobulin. The results of that infusion are pending. PHYSICAL EXAMINATION: Vital Signs: Temperature is 98.4 degrees, pulse 87, respirations 16, blood pressure 124/45. General: This is a somewhat ill-appearing elderly female. She is in no acute distress. Lungs: Clear to auscultation. Cardiovascular: Regular heart rate. Abdomen: Soft and nontender. Extremities: In the right arm, there is a PICC placed. The site of the PICC entrance into the skin is not erythematous or swollen. In the patient's groin, there is a dialysis catheter present. There is no drainage coming from the catheter site. LAB AND X-RAY: CBC-WBC 11.55, hgb 8.2, platelets 483K. Creatinine 3.1. GFR: 15. Chest [id number]. ASSESSMENT AND PLAN: I plan to continue with meropenem being given as a single dose each day after dialysis. If the patient's IgG level is low, I will give her another infusion of gammaglobulin. When the patient is discharged, I will see her back in my office in a month or 2 and repeat her immunoglobulin levels. If they are still low, she may be a candidate for immunoglobulin infusion therapy. COMORBIDITIES: Urinary incontinence, gastroesophageal reflux disease, bipolar disorder, and low IgG level. MTDD
[2016-08-19] MEDS: COLACE PO SCH (11:36)
[2016-08-19] MEDS: PERICOLACE PO SCH ×3 (11:37→22:35)
[2016-08-19] MEDS: PROTONIX IV SCH ×3 (11:37→22:35)
[2016-08-19] MEDS: LOVAZA PO SCH ×3 (11:38→22:35)
--- NOTE | 2016-08-19 11:59 | PROGRESS NOTE ---
DATE: 08/19/2016 SUBJECTIVE: She is feeling much better each day. No shortness of breath, nausea or vomiting. Her pain is resolved. OBJECTIVE: Vital Signs: Blood pressure 124/45, heart rate 87, respirations 16, afebrile. Urine output 1.6 L. General: No acute distress. Skin: Warm and dry. Neck: Neck veins are not visible. Heart: Regular without gallops. Lungs: Have equal breath sounds. No crackles. Abdomen: Soft, nontender. Bowel sounds present. Extremities: Have no edema, clubbing, or cyanosis. LABORATORY DATA: Sodium 138, potassium 4.5, chloride 100, bicarbonate 23, BUN 57, creatinine 3.1. Hemoglobin 8.2. IMPRESSION: Acute kidney injury. Her catheter function is somewhat better today. She will have dialysis today and tomorrow and then we will remove her Vas-Cath. If dialysis is required on Monday, then we will have a tunneled catheter placed in order to anticipate outpatient treatment.
--- NOTE | 2016-08-19 14:15 | PROGRESS NOTE ---
DATE: 08/19/2016 SUBJECTIVE: Ms Trujillo is a 66-year-old female in no acute distress with family at bedside. She reports she generally is feeling much improved. She just recently returned back from dialysis and is beginning to feel overall more well then she has up until this point. She also reports physical therapy came by and is anxious to continue with physical therapy and be discharged with rehab. OBJECTIVE: Vital Signs: Temperature 98.4 degrees, pulse 87, respirations 16, blood pressure 124/45, O2 saturation 98% on room air. HEENT: Normocephalic, atraumatic. Mucous membranes moist. Neck: Supple. No JVD. Chest: Bilateral breath sounds diminished. No accessory muscle use noted. Cardiovascular: Normal S1, S2. Abdomen: Abdomen is soft, slight tenderness to left lower abdomen. Positive bowel sounds. Extremities: Right femoral dialysis catheter. No surrounding erythema. There is 1+ edema. Neurologic: Alert, oriented x4. No neurological deficits noted. DIAGNOSTIC DATA: CBC: White count 11.55, hemoglobin and hematocrit 8.2 and 24.3, platelets 483,000. BMP. Sodium 138, potassium 4.5, chloride 100, CO2 23, BUN 53, creatinine 3.1, glucose 94. ASSESSMENT AND PLAN: 1. Sepsis secondary to extended spectrum beta lactamase Escherichia coli urinary tract infection. This is resolved. She continues on meropenem for the urinary tract infection and is being followed by Dr. Hernandez. 2. Left ureteral stone status post cystoscopy with stent placement by Dr. Gonzalez. She does have a Hardwick catheter and is having urinary output with that. 3. Metabolic encephalopathy. This is resolved. 4. Leukocytosis. This is continuing to improve. 5. Acute kidney injury on chronic kidney disease. She is now stage 5 end-stage renal disease receiving dialysis. Dr. Vazquez is following. She did have dialysis today and plans for dialysis tomorrow. Her creatinine has improved greatly with this. 6. Anemia seems to be chronic, could be secondary to her kidney disease as well. 7. Restless legs syndrome. Physical therapy continues to work with the patient. 8. IgG hypogammaglobulinemia. Dr. Hernandez is following. Further orders pending physician evaluation. Dictated by VAN Walters for Jordan Londono MD cc: VAN Walters MD
[2016-08-19] MEDS: DEPAKOTE PO SCH ×2 (19:30→22:35)
[2016-08-19] MEDS: REQUIP PO SCH ×2 (19:31→22:36)
[2016-08-19] MEDS: DESYREL PO SCH ×2 (19:31→22:35)
[2016-08-19] MEDS: SODIUM CHLORIDE 0.9% INJ SCH (19:31)
[2016-08-19] MEDS: REMERON PO SCH ×2 (19:31→22:36)
[2016-08-19] MEDS: PRAVACHOL PO SCH ×2 (19:32→22:36)
[2016-08-20] MEDS: DUONEB (A & A) INH SCH ×5 (03:20→19:40)
[2016-08-20] MEDS ORDERED: NS 2,000 ML ONE ×2 (06:45→10:28)
[2016-08-20] MEDS ORDERED: HEPARIN ONE (10:27)
[2016-08-20] MEDS: LOVAZA PO SCH ×2 (13:05→21:50)
[2016-08-20] MEDS: PERICOLACE PO SCH ×2 (13:05→21:50)
[2016-08-20] MEDS: SODIUM CHLORIDE 0.9% INJ SCH (13:05)
[2016-08-20] MEDS: VITAMIN D PO SCH (13:05)
[2016-08-20] MEDS: COLACE PO SCH (13:05)
[2016-08-20] MEDS: CITRACAL + D PO SCH (13:05)
[2016-08-20] MEDS: PROTONIX IV SCH ×2 (13:05→21:50)
[2016-08-20] MEDS: DURAGESIC 50 MICROGM/HR PATCH TD SCH (14:15)
--- NOTE | 2016-08-20 14:19 | PROGRESS NOTE ---
DATE: 08/20/2016 NEPHROLOGY PROGRESS NOTE SUBJECTIVE: Ms. Trujillo just completed her dialysis treatment. She is feeling well. She has been eating, but she has not been out of bed yet today. OBJECTIVE: Blood pressure 101/50, heart rate 90, afebrile. General: She is a chronically ill woman. No distress. Skin is warm and dry. HEENT: Conjunctivae are pink. Neck: Neck veins are not distended. Heart: Regular. Lungs: Equal. No crackles. Abdomen: Soft, nontender. Bowel sounds are present. Extremities: Right leg has 1+ edema. IMPRESSION: 1. Acute kidney injury. She had dialysis today. We will remove her vascath and observe her renal function. If not improvement, she will need a tunneled catheter Monday or Monday. 2. Right leg swelling. We will observe how this recovers after her catheter is removed. cc: Kain Vazquez MD
[2016-08-20] MEDS ORDERED: MERREM 500 MG in NS 50 ML IV SCH (15:00)
[2016-08-20] MEDS: MERREM 500 MG in NS 50 ML IV SCH (15:00)
--- NOTE | 2016-08-20 15:02 | PROGRESS NOTE ---
DATE: 08/20/2016 SUBJECTIVE: Patient reports feeling fine. Less pain in both legs. Less swelling in both arms too. OBJECTIVE: Vitals: According to the chart, within normal limits. General Examination: This is a 66-year-old chronically ill-looking and disheveled female lying in bed, in no acute distress. HEENT: Head is normocephalic, atraumatic. Neck: Supple. No JVD noted. No carotid bruits. Cardiovascular: S1, S2 heard. No murmurs, gallops, or rubs. Regular rate and rhythm. Respiratory: Clear bilaterally to auscultation. No work of breathing or using accessory muscles. Abdomen: Soft, nontender to palpation. Bowel sounds present. No organomegaly. Extremities: No clubbing or cyanosis, 3+ pitting edema in both lower extremities. Peripheral pulses present in both legs. Right femoral dialysis catheter removed. Neurological: Patient moves 4 extremities. LABORATORY DATA: White cell count 7.0, creatinine 2.6. ASSESSMENT AND PLAN: 1. Sepsis secondary to the ESBL Escherichia coli. At this point, we are going to continue with meropenem. Dr. Hernandez is following this patient. 2. Left ureteral stone status post cystoscopy with stent placement. Urology has been following this patient. We may need to have a follow-up on discharge. 3. Metabolic encephalopathy, resolved. 4. Leukocytosis secondary to urinary tract infection, ESBL. That condition after a few days resolved. 5. Acute kidney injury. Patient continues with hemodialysis. Today, she had dialysis and the femoral Vas-Cath has been removed. Apparently the plan from Nephrology to put in a tunnelled catheter on Monday and then she can be discharged to rehab facility. We will follow the lead from Dr. Vazquez. 6. Restless leg syndrome on Requip. 7. IgG/hyperglobulinemia stable. cc: Jordan Londono MD
[2016-08-20 17:03] LABS: MANUAL DIFF NEEDED? NO
[2016-08-20 17:31] LABS: AGAP 16; BUN 46 mg/dL (8-22); CALCIUM 8.9 mg/dL (8.8-10.2); CHLORIDE 96 mmol/L (98-107); COSMO 280; POTASSIUM 4.5 mmol/L (3.5-5.1); SODIUM 134 mmol/L (136-145); TCO2 22 mmol/L (25-35)
[2016-08-20 17:45] LABS: BASO% 0.4 % (0.0-0.8); EOS# 0.13 X1000 (0.0-0.7); EOS% 1.3 % (0.0-10.0); HEMATOCRIT 23.4 % (37.0-47.0); HEMOGLOBIN 7.5 g/dL (12.0-16.0); IMM GRAN# 0.04 X1000 (0.0-0.04); IMM GRAN% 0.4 % (0.0-0.5); LYMPH# 2.23 X1000 (1.2-3.4); MCH 30.2 PG (27-31); MCHC 32.1 g/dL (33-37); MCV 94.4 FL (81-99); MONO% 7.9 % (1.7-9.3); MPV 9.7 FL (7.4-10.4); PLT 451 X1000 (130-400); RBC 2.48 XMIL (4.2-5.4)
[2016-08-20] MEDS: DEPAKOTE PO SCH (21:50)
[2016-08-20] MEDS: PRAVACHOL PO SCH (21:50)
[2016-08-20] MEDS: REQUIP PO SCH (21:50)
[2016-08-20] MEDS: DESYREL PO SCH (21:50)
[2016-08-20] MEDS: REMERON PO SCH (21:50)
[2016-08-20] MEDS: NS 500 ML IV SCH (23:16)
[2016-08-21] MEDS: DUONEB (A & A) INH SCH ×7 (00:15→22:53)
[2016-08-21 06:30] LABS: MANUAL DIFF NEEDED? NO
[2016-08-21 06:49] LABS: CALCIUM 8.7 mg/dL (8.8-10.2); POTASSIUM 4.2 mmol/L (3.5-5.1)
[2016-08-21 06:50] LABS: BASO% 0.6 % (0.0-0.8); EOS# 0.08 X1000 (0.0-0.7); EOS% 0.9 % (0.0-10.0); HEMATOCRIT 20.8 % (37.0-47.0); HEMOGLOBIN 6.6 g/dL (12.0-16.0); IMM GRAN# 0.04 X1000 (0.0-0.04); IMM GRAN% 0.5 % (0.0-0.5); LYMPH# 2.01 X1000 (1.2-3.4); LYMPH% 23.8 % (20.5-51.1); MCH 30.3 PG (27-31); MCHC 31.7 g/dL (33-37); MCV 95.4 FL (81-99); MONO# 0.61 X1000 (0.11-0.59); MONO% 7.2 % (1.7-9.3); MPV 9.2 FL (7.4-10.4); PLT 419 X1000 (130-400); RBC 2.18 XMIL (4.2-5.4)
[2016-08-21] MEDS: PERICOLACE PO SCH ×2 (10:06→21:42)
[2016-08-21] MEDS: NORCO-7.5 PO PRN ×2 (10:07→19:56)
[2016-08-21] MEDS: COLACE PO SCH (10:07)
[2016-08-21] MEDS: PROTONIX IV SCH ×2 (10:09→21:42)
[2016-08-21] MEDS: CITRACAL + D PO SCH (10:10)
[2016-08-21] MEDS: LOVAZA PO SCH ×2 (10:10→21:43)
[2016-08-21] MEDS: NICODERM PATCH TD PRN (11:46)
[2016-08-21] MEDS: MERREM 500 MG in NS 50 ML IV SCH (15:42)
--- NOTE | 2016-08-21 16:06 | PROGRESS NOTE ---
DATE: 08/21/2016 SUBJECTIVE: Patient is feeling fine. No complaints at this time. OBJECTIVE: Vital Signs: Temperature 98.2 degrees, heart rate 89, respiratory rate 20, blood pressure 120/47, O2 saturation 97% on room air. General: The is a 66-year- old female lying in bed, in no acute distress. HEENT: Head is normocephalic, atraumatic. Anicteric sclerae and pale conjunctivae. Mucous membranes moist. Neck: Supple. No JVD noted. No carotid bruits. No lymphadenopathy. No thyromegaly. Cardiovascular: S1, S2 heard. No murmurs , gallops, or rubs. Regular rate and rhythm. Respiratory: Clear bilaterally to auscultation. No work of breathing or using accessory muscles. Abdomen: Soft, nontender to palpation. Bowel sounds present. No organomegaly. Extremities: 3+ pitting edema in both lower extremities, unchanged when comparing with yesterday. Peripheral pulses present in both legs. Right femoral dialysis catheter was removed day before yesterday. Neurological: Patient is alert and oriented x3. Moves 4 extremities. LABORATORY DATA: Remarkable for hemoglobin of 6.3 and BUN 39, creatinine 2.5. ASSESSMENT AND PLAN: 1. Sepsis secondary to extended-spectrum beta-lactamase Escherichia coli infection. We are going to continue with meropenem. Dr Hernandez from Infectious Disease is following this patient and this patient for possible discharge to rehab facility tomorrow, she may need to receive 2 more weeks of antibiotics after dialysis. 2. Left ureteral stone status post cystoscopy with stent placement. Urology has been following this patient. No new recommendations from their standpoint. 3. Metabolic encephalopathy, resolved. 4. Leukocytosis secondary to urinary tract infection. Finally this number is back to normal. We will continue with the same management. 5. Acute kidney injury, on hemodialysis. As per Dr. Vazquez, probably think they are going to place a tunneled catheter for permanent dialysis. After that, patient will be discharged. 6. Anemia of chronic disease. Hemoglobin has returned 6.6 today, so we are going to transfuse one unit now and one unit of blood while on dialysis. cc: Jordan Londono MD [facility] CENTERAnup
[2016-08-21] MEDS: NS 500 ML IV SCH (18:50)
[2016-08-21] MEDS ORDERED: ZOVIRAX PO SCH (21:00)
[2016-08-21] MEDS: DEPAKOTE PO SCH (21:41)
[2016-08-21] MEDS: DESYREL PO SCH (21:41)
[2016-08-21] MEDS: SODIUM CHLORIDE 0.9% INJ SCH (21:42)
[2016-08-21] MEDS: PRAVACHOL PO SCH (21:42)
[2016-08-21] MEDS: REQUIP PO SCH (21:42)
[2016-08-21] MEDS: ZOVIRAX PO SCH (21:42)
[2016-08-21] MEDS: REMERON PO SCH (21:42)
[2016-08-21] MEDS ORDERED: CALMOSEPTINE OINTMENT TOP PRN (21:53)
[2016-08-21] MEDS: TYLENOL PO PRN (22:11)
[2016-08-21] MEDS: ZOFRAN IV PRN (22:11)
[2016-08-22] MEDS: DUONEB (A & A) INH SCH ×4 (03:11→15:18)
[2016-08-22 06:26] LABS: MANUAL DIFF NEEDED? NO
[2016-08-22 06:38] LABS: BASO% 0.7 % (0.0-0.8); EOS% 1.3 % (0.0-10.0); HEMATOCRIT 24.3 % (37.0-47.0); HEMOGLOBIN 7.9 g/dL (12.0-16.0); IMM GRAN# 0.02 X1000 (0.0-0.04); IMM GRAN% 0.3 % (0.0-0.5); LYMPH# 1.79 X1000 (1.2-3.4); MCH 30.3 PG (27-31); MCHC 32.5 g/dL (33-37); MCV 93.1 FL (81-99); MONO# 0.56 X1000 (0.11-0.59); MONO% 7.5 % (1.7-9.3); MPV 9.3 FL (7.4-10.4); NEUT% 66.2 % (42.2-75.2); PLT 396 X1000 (130-400); RBC 2.61 XMIL (4.2-5.4)
[2016-08-22 07:13] LABS: ALBUMIN 2.7 g/dL (3.5-5.0); CALCIUM 8.8 mg/dL (8.8-10.2); POTASSIUM 4.3 mmol/L (3.5-5.1)
[2016-08-22] MEDS: CITRACAL + D PO SCH (09:06)
[2016-08-22] MEDS: ZOVIRAX PO SCH (09:06)
[2016-08-22] MEDS: PERICOLACE PO SCH (09:07)
[2016-08-22] MEDS: COLACE PO SCH (09:08)
[2016-08-22] MEDS: LOVAZA PO SCH (09:08)
[2016-08-22] MEDS: PROTONIX IV SCH (09:09)
--- NOTE | 2016-08-22 09:11 | PROGRESS NOTE ---
DATE: 08/22/2016 SUBJECTIVE: She states she is feeling well today. Good urine output. No nausea, vomiting, or shortness of breath. VITAL SIGNS: Blood pressure 125/51, heart rate 71, respirations 20, afebrile. Intake 1.7 L. Output 4.1 L. PHYSICAL EXAMINATION: No acute distress. Skin: Warm and dry. Conjunctivae are pink. Neck veins are not distended. Heart is regular. Lungs are equal. No crackles. Abdomen is soft, nontender. Bowel sounds present. Extremities have no edema, clubbing, or cyanosis. LABORATORY DATA: Sodium 138, potassium 4.3, chloride 99, bicarbonate 25. BUN 36, creatinine 2.5. IMPRESSION: 1. Acute kidney injury. Seems to be improving. She has not had dialysis since Monday. We will hold dialysis today. 2. Urinary tract infection with negative blood cultures. Blood cultures were initially positive. Repeat negative on 08/08/2016. Continue care. cc: Kain Vazquez MD
[2016-08-22] MEDS: NORCO-7.5 PO PRN ×2 (09:16→15:05)
--- NOTE | 2016-08-22 09:44 | PROGRESS NOTE ---
DATE: 08/22/2016 PRESENT ILLNESS: The patient has an extended spectrum beta lactamase producing E. coli urinary tract infection. She also had a low IgG level of 535. She has received an infusion of gammaglobulin which has brought her IgG level up to 811. The IgA level has always been normal. MEDICATION: IV meropenem. PHYSICAL EXAMINATION: Vital Signs: Temperature is 98.2 degrees, pulse 71, respirations 20, blood pressure 125/51. General: This is an ill-appearing, elderly female. She is in no acute distress. Lungs: Clear to auscultation. Cardiovascular: The patient's heart rate is regular. Abdomen: Soft and nontender. The patient in her right arm has a PICC. The PICC site is not erythematous or draining. She had a dialysis catheter in her right groin but this has been removed. There is no erythema or purulent drainage. LAB AND X-RAY: There is no new x-ray. Lab for today shows a CBC with a white count of 7,470, hemoglobin 7.9, platelet count 396,000. Creatinine is 2.5. GFR is 19. As mentioned above, IgG and IgA are normal. ASSESSMENT AND PLAN: My plan is to switch to ertapenem 500 mg IV daily when she goes home. Also in a month or 2 I will repeat the patient's immunoglobulin level and if it is low again then she may be a candidate for immunoglobulin infusions. The patient's comorbidities include urinary incontinence, gastroesophageal reflux disease, bipolar disorder, and low IgG level. cc: Maldonado Hernandez MD MTDAnup
[2016-08-22 11:30] VITALS: BP 117/37
[2016-08-22] MEDS: NS 500 ML IV SCH (14:14)
[2016-08-22] MEDS: MERREM 500 MG in NS 50 ML IV SCH (15:43)
--- NOTE | 2016-08-22 16:09 | DISCHARGE SUMMARY ---
ADMISSION DATE: 08/05/2016 DISCHARGE DATE: 08/22/2016 CONSULTATIONS: 1. Dr. Kain Vazquez with nephrology. 2. Dr. Shyam Gonzalez with urology. 3. Dr. Maldonado Hernandez with infectious disease. 4. Dr. Jeffy Alanis with general surgery. PERTINENT PROCEDURES: 1. Echocardiogram showing EF of 60 the patient 65%. 2. Abdomen and pelvis CT showed bilateral pleural effusions and associated bibasilar airspace disease, 4 mm left urethral stone with mild hydronephrosis, bilateral perirenal, retroperitoneal, and presacral edema, small amount of ascites, probable mild hepatomegaly, mild anasarca within the soft tissues. 3. Abdomen ultrasound showed cholecystectomy and mild splenomegaly, common bile duct dilated at 1.[address] showed cardiomegaly, pulmonary edema, and bilateral pleural effusions, bilateral lobe atelectasis. No suspicious infiltrate. 5. Thoracic and lumbar spine showed surgical changes with lumbar spondylosis with no acute disease and cervical and thoracic spondylosis. No acute disease. 6. Head CT showed mild sinusitis. No acute disease. 7. Endoscopic exam with placement of left double-J stent, performed by Dr. Shyam Gonzalez. 8. Venous ultrasound of the right arm showed no evidence of deep or superficial venous thrombosis. 9. Venous ultrasound of bilateral lower extremities showed no evidence of deep or superficial venous thrombosis in either lower extremity. 10. Right femoral vein Vas-Cath placement with ultrasound guidance, performed by Dr. Alanis. DISCHARGE DIAGNOSIS: 1. Acute kidney injury, improving with no indications for dialysis since August 20. Patient will be discharged to rehab with BMP monitored twice a week for 4 weeks and results will be faxed to Dr. Vazquez. 2. Extended spectrum beta-lactamase Escherichia coli urinary tract infection. Followed by Dr. Hernandez. Patient will be switched to ertapenem 500 mg IV daily. Followed by Dr. Maldonado Hernandez and will follow up with him. 3. Sepsis secondary to extended spectrum beta-lactamase Escherichia coli urinary tract infection. Improved with antibiotics. 4. Left urethral stone status post cystoscopy and stent placement. Urology on board. No new recommendations. 5. Metabolic encephalopathy, resolved. 6. Leukocytosis secondary to urinary tract infection. This is now normal. 7. Acute kidney injury requiring hemodialysis. Again, followed by Dr. Vazquez. Patient to be monitored on an outpatient basis while in rehab. 8. Anemia of chronic disease status post transfusion with packed red blood cells. 9. IgG hyperglobulinemia, stable. Again, this will be followed up in [address] Hernandez. 10. Restless leg syndrome. Continue Requip. HOSPITAL COURSE: Briefly, Ms. Trujillo is a 66-year-old female who carries a past medical history of hypertension, hyperlipidemia, GERD, irritable bowel, bipolar, depression, pelvic fracture, restless legs syndrome, history of anorexia and bulimia, reported to [facility] ED with general weakness, stating she was weak all over. She also stated that she had fallen from her bed approximately a week before her admission. She uses a walker due to prior hip surgery, as well as back surgery. Workup in the ED showed a sodium of 116, potassium of 3.2, chloride of 77, BUN 24, creatinine of 1.4, ProBNP of 3,346, and white count 16. Urinalysis had positive nitrites, 2+ WBCs, and 4+ bacteria. She was admitted to [facility]. Placed in the ICU. Obtained a urine culture, as well as started on IV fluids and antibiotics. The patient had a gram negative neelam UTI resistant to Levaquin. She was changed to Bactrim. Her urine culture grew out ESBL. Again, she was changed Invanz. Her acute kidney injury remained. She was continued on hydration. Did check an abdomen ultrasound as well as abdomen and pelvis CT. The patient did progress into renal failure. Nephrology was consulted as well as infectious disease. The patient was pending transfer to [facility]. The patient was C. difficile antigen positive but C. difficile toxin negative. She was empirically started on vancomycin orally. Dr. Shyam Gonzalez was also consulted for possible mild left mid to distal urethral stone. She did undergo a cystoscopic exam with placement of a left double-J stent. The patient did not have any improvement in her renal function. It continued to worsen. She also had a CT scan that showed bibasilar infiltrates and effusion. Her Invanz was discontinued. She was placed on meropenem and ceftriaxone to cover her ESBL, as well as her pneumonia. Due to the continued worsening of renal failure, a right femoral vein Vas-Cath was placed by Dr. Alanis. Patient was started on hemodialysis. The patient had dialysis for 5 days. They did remove her Vas-Cath to observe her renal function. She did show signs of improvement. There was no need for a tunneled catheter. While she is in rehab she will have labs checked 2 days a week for 4 weeks with information faxed to Dr. Vazquez's office. She will also be going with. IV antibiotics as per Dr. Hernandez and he will see her back in 2 weeks with repeat of the patient's immunoglobulin level. She had a low level of IgG at 535. She did receive an infusion and brought her IgG level at 811. Patient's metabolic encephalopathy had resolved. Patient is being discharged to rehab today. VITAL SIGNS: Temperature is 98.4 degrees, heart rate 85, respirations 18, blood pressure 117/37, O2 is 98% on room air. LABORATORY: White count is 7, hemoglobin 7.9, hematocrit 24, platelet count is 369,000. Sodium 138, potassium 4.3, chloride 99, carbon dioxide 25, anion gap is 14, BUN 36, creatinine is 2.5. Blood glucose was 81. DISCHARGE DIET: Regular with Nepro shakes. DISCHARGE MEDICATIONS: As per Dr. Londono. Please see MAR. FOLLOW UP: Patient is being discharged to rehab. She will follow up with Dr. Maldonado Hernandez in 1 month. She will also need BMPs twice a week and information faxed to Dr. Vazquez. She will continue with IV antibiotics as per Dr. Maldonado Hernandez. Patient can return to the ED for any worsening of symptoms. DISCHARGE TIME: Greater than 30 minutes. Dictated by VAN Borrero for Jordan Londono MD cc: MD Yuridia Houser
== END 2016-08-22 17:02 ==
LOC: P.ED 15:04 → P.ICU 15:05 → P.MEDSURG 08-06 10:14 → 3N 08-12 16:25 → 3S 08-12 21:26 → ICU 08-13 13:47 → 4N 08-15 13:53
PROVIDERS: ATTEND Internal Medicine

== ENCOUNTER 2016-11-11 12:23 | Inpatient (IN) ==
--- NOTE | 2016-11-11 13:19 | Diag Imaging Result Doc PS360 ---
CHEST-PORTABLE - 11/11/2016 INDICATION: AMS TECHNIQUE: COMPARISON: 08/16/2016 FINDINGS: The lungs are normally expanded and clear. Heart size and mediastinal contours are normal. No pneumothorax or pleural effusion. IMPRESSION: Negative exam. Electronically signed by Tyron August 11/11/2016 1:17 PM
[2016-11-11 14:04] LABS: INR 1.13; PTT 29.9 Seconds (22.0-36.0)
[2016-11-11 14:05] LABS: BASO% 0.2 % (0.0-0.8); EOS# 0.01 X1000 (0.0-0.7); EOS% 0.1 % (0.0-10.0); HEMATOCRIT 33.1 % (37.0-47.0); LYMPH# 1.08 X1000 (1.2-3.4); LYMPH% 10.5 % (20.5-51.1); MANUAL DIFF NEEDED? NO; MCH 33.7 PG (27-31); MCHC 33.2 g/dL (33-37); MCV 101.5 FL (81-99); MONO# 0.57 X1000 (0.11-0.59); MONO% 5.6 % (1.7-9.3); MPV 10.1 FL (7.4-10.4); NEUT% 83.6 % (42.2-75.2); PLT 208 X1000 (130-400); RBC 3.26 XMIL (4.2-5.4)
--- NOTE | 2016-11-11 14:14 | EKG Report ---
Test Performed on : 11/11/2016 2:02:30 PM Test Reason : AMS Blood Pressure : / mmHG Vent. Rate : 123 BPM Atrial Rate : 123 BPM P-R Int : 162 ms QRS Dur : 074 ms QT Int : 282 ms P-R-T Axes : 062 002 069 degrees QTc Int : 403 ms Sinus tachycardia. Nonspecific ST and T wave abnormality Abnormal ECG When compared with ECG of 05-AUG-2016 15:22, QRS duration has decreased Unconfirmed Result
[2016-11-11 15:12] LABS: URINE SOURCE CATH
[2016-11-11 15:20] LABS: BILIRUBIN URINE NEGATIVE (NEGATIVE); BLOOD URINE MODERATE (NEGATIVE); COLOR YELLOW; GLUCOSE URINE NEGATIVE (NEGATIVE); LEUKOCYTES URINE LARGE (NEGATIVE); NITRITE URINE POSITIVE (NEGATIVE); PROTEIN URINE 100 mg/dL (NEGATIVE); SP GRAVITY URINE 1.018; TURBIDITY URINE TURBID (CLEAR); UROBILINOGEN URINE NORMAL (NORMAL)
[2016-11-11 15:22] LABS: UR EPITHELIAL CELLS >10 /HPF (<10); URINE BACTERIA 4+ /HPF; URINE CULTURE NEEDED? YES; URINE MICRO REVIEW NEEDED? YES; URINE WBC TNTC /HPF (<10)
[2016-11-11 15:22] LABS: ALBUMIN 3.4 g/dL (3.5-5.0); CALCIUM 9.2 mg/dL (8.8-10.2); POTASSIUM 4.2 mmol/L (3.5-5.1); TOTAL BILIRUBIN 0.42 mg/dL (0.20-1.00); TOTAL PROTEIN 6.2 g/dL (6.3-8.3)
[2016-11-11 15:41] LABS: UR AMPHETAMINES QUAL NONE DETECTED (NONE DETECT); UR BARBITUATES QUAL NONE DETECTED (NONE DETECT); UR BENZODIAZEPIN QUAL NONE DETECTED (NONE DETECT); UR CANNABINOIDS QUAL NONE DETECTED (NONE DETECT); UR COCAINE QUAL NONE DETECTED (NONE DETECT); UR METHADONE QUAL NONE DETECTED (NONE DETECT); UR OPIATES QUAL PRESUMPTIVE POSITIVE (NONE DETECT); UR OXYCODONE QUAL NONE DETECTED (NONE DETECT); UR PCP QUAL NONE DETECTED (NONE DETECT)
[2016-11-11] MEDS: ZOSYN 3.375 GM/NS 3.375 GM/50 ML IVPB IV SCH ×2 (16:45→21:52)
--- NOTE | 2016-11-11 16:46 | PROVIDER DOCUMENTATION ---
This chart was entered by Cintia Fowler Scribe, acting as scribe for Easton Guevara MD. HPI-General Adult - General Chief Complaint: General Adult Stated Complaint: AMS/WEAKNESS Time Seen by Provider: 11/11/16 12:36 Source: patient Allergies/Adverse Reactions: Patient Allergies Allergy/AdvReac Type Severity Reaction Status Date / Time olanzapine [From Zyprexa] AdvReac Unknown Verified 10/13/16 12:58 Home Medications: Home Medication List Medication Instructions Recorded Confirmed Last Taken Type PRAVAstatin [Pravachol] 40 mg PO DAILY 09/23/15 11/11/16 11/10/16 History Ropinirole HCl 5 mg PO HS 09/23/15 11/11/16 11/10/16 History Ca Citrate/Vit D3 [Citracal-Vit D 1 tab PO DAILY 08/06/16 11/11/16 11/10/16 History 200 mg-250] Divalproex Sodium [Depakote] 2,000 mg PO QHS 08/06/16 11/11/16 11/10/16 History Ergocalciferol (Vitamin D2) 50,000 unit PO DIRECTED 08/06/16 11/11/16 History [Vitamin D2] Mirtazapine [Remeron] 30 mg PO HS 08/06/16 11/11/16 11/10/16 History Omeprazole [Prilosec] 40 mg PO DAILY 08/06/16 11/11/16 11/10/16 History Albuterol 2.5MG/Ipratrop 0.5MG 3 ml INH Q4H PRN PRN #0 neb 08/09/16 11/11/16 Rx [Duoneb (A & A)] Duloxetine [Cymbalta] 120 mg PO DAILY #60 capsule 08/22/16 11/11/16 11/10/16 Rx Hydrocodone Bit/Acetaminophen 1 each PO PRN PRN #30 tablet 08/22/16 11/11/1602/05 Rx [Hydrocodon-Acetaminoph 7.5-325] Trazodone [Desyrel] 300 mg PO HS #90 tablet 08/22/16 11/11/16 11/10/16 Rx Apixaban [Eliquis] 5 mg PO BID 10/11/16 11/11/16 11/10/16 History Naloxegol Oxalate [Movantik] 25 mg PO DAILY 10/11/16 11/11/16 11/10/16 History Roark-3 Acid Ethyl Esters [Lovaza] 1 gm PO 4XDAY 10/11/16 11/11/16 11/10/16 History Prochlorperazine [Compazine] 10 mg PO TID PRN PRN 10/11/16 11/11/16 10/12/16 18: 00 History Hydrocodone/Acetaminophen [[place] 1 each PO Q4H PRN PRN #10 tablet 10/13/1611/1111/10/16 Rx 7.5-325 Tablet] - History of Present Illness -Gen Adult Nature of Presenting Problems: Pt is 66 y/o F presents to the ED with generalized weakness. Pt states N and V. Pt states symptoms started this am. Location of Pain/Injury: reports: generalized Pain Radiation: reports: no radiation Quality of Pain: reports: aching Severity: reports: mild Onset/Duration: reports: this morning Timing: reports: still present Context/Activities at Onset: reports: light activity Modifying Factors: improves with: nothing Associated Symptoms: reports: nausea, vomiting, weakness. denies: anxiety, arm pain, back/neck pain, chest pain, constipation, cough, diaphoresis, diarrhea, dizziness, EENT symptoms, fatigue, fever/chills, genitourinary problems, headaches, heartburn, joint pain, loss of appetite, malaise, muscle aches, sinus congestion/drainage, rash, seizure, shortness of breath, sensory/motor loss, pain with inspiration, swelling/mass in abdomen, syncope, trouble walking Similar Symptoms Previously?: Yes Recently seen or treated by another doctor?: No Review of Systems - Adult - REVIEW OF SYSTEMS - ADULT Constitutional: reports: no symptoms reported Eyes: reports: no symptoms reported Ears, Nose, Mouth & Throat: reports: no symptoms reported Cardiovascular: reports: no symptoms reported Respiratory: reports: no symptoms reported Gastrointestinal: reports: nausea, vomiting. denies: abdominal pain, diarrhea Genitourinary: reports: no symptoms reported Musculoskeletal: reports: muscle weakness. denies: bone pain, joint pain, neck pain Integumentary: reports: no symptoms reported Neurological: reports: no symptoms reported Psychiatric: reports: no symptoms reported Endocrine: reports: no symptoms reported Hematologic/Lymphatic: reports: no symptoms reported Allergic/Immunologic: reports: no symptoms reported All Other Systems: Reviewed and Negative Past History - Adult - PAST MEDICAL HISTORY-ADULT Review of Records: reports: Nursing Assessment Review, Medications Reviewed, Social history reviewed & non-contributory. Major Childhood Illnesses: reports: denies history Cardiovascular: reports: HTN, hyperlipidemia Respiratory: reports: denies history Gastrointestinal: reports: GERD, IBS Obstetrical/Gynecological: reports: denies history Genitourinary: reports: kidney disease Musculoskeletal: reports: denies history Neurological: reports: denies history Psychiatric: reports: bipolar, depression Endocrine/Immune: reports: denies history Other Conditions: reports: denies history - PRIOR SURGERIES/PROCEDURES Surgical/Procedure History: reports: cholecystectomy, hysterectomy, joint replacement (L total hip), back/neck - IMMUNIZATION STATUS Childhood Immunizations: See Nurse Assessment Flu Vaccine: See Nurse Assessment - FAMILY HISTORY Family History: reviewed, not pertinent - SOCIAL HISTORY Smoking: cigarettes, greater than 1 pack/day Provider spent 3-5 mins advising pt. on dangers of tobacco.: Discussed manners to quit use, and f/u contacts for add'l counseling. Substance Use: denies Living Situation: family Physical Exam-General - PHYSICAL EXAM-ADULT Initial Vital Signs Reviewed: Yes - CONSTITUTIONAL General Appearance: appears well, alert, no apparent distress - EYES Eyes: PERRL/EOMI, pink conjunctivae - HEAD, EARS, NOSE, MOUTH & THROAT HENMT: normocephalic/atraumatic, moist mucous membranes, normal ENT inspection - NECK Neck: non-tender, full range of motion, supple, normal inspection - RESPIRATORY Respiratory: chest non-tender, lungs clear, normal breath sounds - CARDIOVASCULAR Cardiovascular: normal peripheral pulses, tachycardia - GASTROINTESTINAL (ABDOMEN) Abdominal Exam: normal bowel sounds, non tender, soft - LYMPHATIC Lymphatic: no adenopathy - MUSCULOSKELETAL Back Exam: normal inspection, no CVA tenderness, no vertebral tenderness Extremity: normal range of motion, non-tender, normal gait, normal inspection - SKIN Integumentary: normal color, normal turgor, warm/dry - NEUROLOGIC Neurologic: grossly normal - PSYCHIATRIC Psych/Mental Status: normal mood/affect, oriented x 3 Progress - PLAN OF CARE/RESULTS Progress/Plan/Lab Results: Vital Signs - 8 hr 11/11/16 12:46 Temperature 97.9 F Pulse Rate 112 H Respiratory Rate 18 Blood Pressure 109/77 O2 Sat by Pulse Oximetry 98 Orders Category Date Time Status Cardiac Monitoring DIRECTED Care 11/11/16 12:37 Active Finger Stick Blood Sugar (ED) DIRECTED Care 11/11/16 12:37 Active Oxygen Therapy- ED Nursing DIRECTED Care 11/11/16 12:37 Active Saline Loc NOW Care 11/11/16 12:37 Active CHEST-PORTABLE [RAD] Stat Exams 11/11/16 12:37 Completed ALCOHOL BLOOD Stat Lab 11/11/16 12:37 Uncollected CBC WITH ELECTRONIC DIFF [HEME] Stat Lab 11/11/16 12:37 Uncollected CK PROFILE [SP CHEM] Stat Lab 11/11/16 12:37 Uncollected COMPREHENSIVE METABOLIC PANEL [CHEM] Stat Lab 11/11/16 12:37 Uncollected LACTATE, PLASMA [CHEM] Stat Lab 11/11/16 12:37 Uncollected PROTIME WITH INR [COAG] Stat Lab 11/11/16 12:37 Uncollected PTT [COAG] Stat Lab 11/11/16 12:37 Uncollected TROPONIN T Stat Lab 11/11/16 12:37 Uncollected URINALYSIS W/POSS RFLX CULT-1 [URINALYSIS] Stat Lab 11/11/16 12:37 Uncollected URINE DRUG SCREEN Stat Lab 11/11/16 12:37 Uncollected Pulse Oximetry Stat Oth 11/11/16 12:37 Active EKG [EKG] Stat Ther 11/11/16 12:37 Ordered Result Diagrams: 11/11/16 13:20 11/11/16 13:20 - EKG 1 Time of EKG reading by physician:: 14:02 EKG Read and Signed by:: Easton Guevara EKG Interpretation (*Must complete 3 of following elements*): Abnormal Rate: 123 Rhythm: sinus tachycardia Comments: nonspecific ST and T wave abnormality - XRAY 1 XRAY Study: Chest Impression: Normal XRAY Interpretation: negative exam Departure - Departure Date of Disposition Decision: 11/11/16 Time of Disposition Decision: 16:45 DIAGNOSIS: Weakness of both lower extremities, Urinary tract infection Disposition: ADMITTED INPATIENT 09 Certified Medical Emergency: Emergent Condition: Stable Referrals and Follow-Ups: Najma Jackson CRNP [Primary Care Provider] - - Critical Care Note This patient required my direct & personal management of CC.: No Attestation - Physician/ PAULA Attestation The physician spent face to face time with patient:: Yes Advanced Practice Provider documentation review:: The physician spent face to face time with this patient and agrees with all MLP documentation, treatment, and medical decision making by the MLP. See provider notes for further information. This chart was documented by the indicated scribe, (Cintia Fowler Scribe) and accurately reflects the services I performed and decisions made by Ismael pickett Christophe I, MD, as attested by the provider's signature.
[2016-11-11] MEDS ORDERED: NS 1,000 ML ONE (17:07)
[2016-11-11] MEDS ORDERED: NS 1,000 ML IV ONE (17:15)
[2016-11-11] MEDS ORDERED: ZOFRAN IV PRN (18:06)
[2016-11-11] MEDS ORDERED: DUONEB (A & A) INH PRN (18:06)
[2016-11-11] MEDS ORDERED: NORCO-7.5 PO PRN (18:06)
[2016-11-11] MEDS ORDERED: COMPAZINE PO PRN (18:06)
[2016-11-11] MEDS ORDERED: TYLENOL PO PRN (18:06)
[2016-11-11] MEDS ORDERED: NS 1,000 ML IV SCH (18:06)
--- NOTE | 2016-11-11 18:58 | Diag Imaging Result Doc PS360 ---
RENAL STONE SEARCH - 11/11/2016 INDICATION: uti TECHNIQUE: A CT dose reduction protocol was used. COMPARISON: 08/11/2016, 11/08/2016 FINDINGS: There is significant patient motion artifact. There is also streak artifact in the lower abdomen and pelvis. The lung bases are clear. 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 There is probably right hydronephrosis. There is also hydroureter to the level of the urinary bladder. The reason is unclear. No definite radiodense stone visible. Hardwick catheter in the urinary bladder. There is probably some dense material in the urinary bladder which may suggest hemorrhage. There is decrease in the presacral fluid density that was present on the prior exam. No bowel obstruction or inflammation. Stable mild splenomegaly. No acute bony lesions. IMPRESSION: 1. Right hydroureteronephrosis to the level of the urinary bladder. Reason is unclear. No definite dense renal or ureteral stones. 2. Apparent dense material in the urinary bladder which may be blood. Electronically signed by Tyron August 11/11/2016 6:56 PM
--- NOTE | 2016-11-11 20:23 | HISTORY AND PHYSICAL ---
PRIMARY CARE PROVIDER: VAN Bolden. CHIEF COMPLAINT: Confusion, nausea, vomiting, diarrhea, fever, chills, urinary incontinence and foul smelling urine. HISTORY OF PRESENT ILLNESS: Ms. Marisela Trujillo is a 66-year-old, female with a medical history of recent ureteral stone obstruction on the left status post double-J stent placement in July and removal in September by Dr. Gonzalez. Also with a history of bipolar disorder , chronic pain syndrome secondary to arthritis, hypertension, hyperlipidemia, GERD who presents secondary to her family having her come to the ER. She is confused and is only oriented to name , but she will answer yes and no to questions. She said yes to nausea, vomiting, diarrhea. She said yes to fever and chills. She said yes to incontinence of urine and foul smelling urine but she denied painful urination. She also admitted to being confused and having difficulty expressing herself. She has weakness. She denied abdominal pain but had abdominal pain to palpation in the right upper and lower quadrants. She states that these symptoms have been going on for the last 24 hours. She had a workup which revealed continued urinary tract infections, 4+ bacteria. In reviewing past urine cultures she most recently had a urine culture on October 05 which was positive for E. Coli. We will start Zosyn as it is sensitive to Zosyn. It also appears that maybe she has been seeing her primary care provider who has also ordered an abdominal ultrasound which was performed on 11/08/2016 and this revealed a dilated common bile duct that may have been increased in size. We will follow up with a renal stone CT to make further decisions on Urology consultation. Her urologist is Dr. Gonzalez. She has stable vital signs. She is a little tachycardic in the 110s but otherwise stable. We will admit to the medical floor and follow up with urine culture and imaging. I will also hold some of her medications which could be adding to the confusion. PAST MEDICAL HISTORY: 1. In July 2016, left ureteral stone obstruction status post double-J stent placement and removal. 2. Hypertension. 3. Hyperlipidemia. 4. GERD. 5. Irritable bowel syndrome. 6. Bipolar disorder. 7. Depression, anxiety. 8. Pelvic fracture. 9. Restless legs syndrome. 10. Anorexia/bulimia history. 11. Constipation. 12. Seasonal allergies. 13. Arthritis with chronic pain syndrome in her back. 14. Frequent urinary tract infections with E. coli. 15. Chronic kidney disease stage 3 with a recent history in July 2016 of almost needing hemodialysis secondary to DEAN on CKD. It appears her GFR is in the 30s. PAST SURGICAL HISTORY: In July 2016, double-J stent placed. In September 2016, double-J stent removed. Cholecystectomy, hysterectomy, total hip, lumbar fusion, neck surgery. In July 2016, she had a right femoral Vas-Cath which was removed. SOCIAL HISTORY: She admits to smoking a pack of cigarettes per day for 20 years. History of alcohol. She quit drinking 11 years ago. She denies illicit drug use. She lives at home alone. FAMILY HISTORY: Positive for bipolar, depression, CAD and cancer. ALLERGIES: Olanzapine. HOME MEDICATIONS: Albuterol/Atrovent every 4 hours p.r.n. Eliquis 5 mg p.o. twice daily. Calcium Caltrate and vitamin D3, 1 tab p.o. daily. Depakote 2000 mg p.o. nightly. Cymbalta 120 mg p.o. daily. Vitamin D2 50,000 units p.o. as directed. Cantril 7.5, 1 tab p.o. as needed every 4 hours. Remeron 30 mg p.o. nightly. Movantik 25 mg p.o. daily. Lovaza 1 g p.o. 4 times a day. Prilosec 40 mg p.o. daily. Pravachol 40 mg p.o. daily. Compazine 10 mg p.o. t.i.d. p.r.n. Ropinirole HCL 5 mg p.o. nightly. Trazodone 300 mg p.o. nightly. REVIEW OF SYSTEMS: Difficult to obtain as patient was confused but she did answer some questions and were negative except for those mentioned in above HPI. PHYSICAL EXAMINATION: VITAL SIGNS: Temperature 97.9 degrees, heart rate 113, respiratory rate 18, blood pressure 144/48, O2 saturation 94% on room air. She is 5 feet 8 inches tall, 140 pounds , BMI is 21.3. GENERAL: Ms. Trujillo is a 66-year-old female. She is in no acute distress but is confused with conversation. She has difficulty expressing what she wants to say. HEENT: Atraumatic, normocephalic. Pupils equal, round, reactive to light. Extraocular movements intact. NECK: No JVD or carotid bruits noted. CARDIOVASCULAR: S1, S2. Tachycardic rate and rhythm. No rubs, gallops, or murmurs. PULMONARY: Clear to auscultation. Bilateral breath sounds. No accessory muscle use or work of breathing noted. GASTROINTESTINAL: Soft, tender in the right upper and lower quadrant, positive bowel sounds x4. EXTREMITIES: No edema noted, +2 dorsalis and radial pulses. NEUROLOGIC: She is oriented to name only. Will follow all commands. Moves all extremities equally. SKIN: Warm, dry, intact. GENITOURINARY: Hardwick with dark yellow urine output. No obvious sediment noted. LABORATORY DATA: White blood cells 10,000, hemoglobin 11, hematocrit 33, platelet count 208,000, PTT is 29, sodium 136, potassium 4.2, BUN 30, creatinine 2.8, glucose 103, calcium 9.2, bilirubin 0.42, AST 23, ALT 16, CK 8, troponin less than 0.01, albumin 3.4 , lactate pending. Urinalysis: Urine protein 100, moderate blood, positive nitrites, large leukocytes, too numerous to count white blood cells, 10-20 red blood cells, greater than 10 epithelial cells, 4+ bacteria. Urine drug screen positive for opiates. Alcohol level 0. IMAGING: Chest x-ray is negative for any acute findings. EKG: Sinus tachycardia, rate was 123, QTc 403. ASSESSMENT AND PLAN: 1. Urinary tract infection with remote history of ureteral stone left that was obstructive and receiving a double-J stent by Dr. Gonzalez which has already been removed. She had an ultrasound on the where her abdomen showed a dilated common bile duct. We will follow up with a renal stone CT. Start her on Zosyn. Her most frequent urinary tract infections were E. coli positive and sensitive to Zosyn. We will follow her culture. 2. Right upper and lower quadrant abdominal tenderness to palpation. Again we will follow with the CAT scan. 3. Metabolic and infectious encephalopathy secondary to urinary tract infection and acute kidney injury. We will hold some of her home bipolar medications as this could make it worse. 4. Arthritis, chronic pain syndrome. She is positive for opiates. We will hold her home medications as she does have some confusion. 5. Bipolar disorder with depression. Again like I said we will hold some of her home medications. 6. Gastroesophageal reflux disease. Continue with a proton pump inhibitor. 7. Hyperlipidemia. Continue statin. 8. Hypertension. Hold medications. 9. Acute kidney injury with chronic kidney disease. Apparently back in July she almost needed dialysis. We will do IV fluid hydration 100 mL an hour for 2 L and trend her kidney function. 10. Deep vein thrombosis prophylaxis. SCDs. 11. Gastrointestinal prophylaxis. Proton pump inhibitor. Dictated by VAN Starkey for Enio Maldonado MD cc: VAN Starkey MD MTDD
[2016-11-11] MEDS ORDERED: REMERON PO SCH (21:00)
[2016-11-11] MEDS ORDERED: DESYREL PO SCH (21:00)
[2016-11-11] MEDS: ELIQUIS PO SCH (21:53)
[2016-11-11] MEDS: REQUIP PO SCH (21:53)
[2016-11-11] MEDS: DEPAKOTE PO SCH (21:53)
[2016-11-11] MEDS: LOVAZA PO SCH ×2 (21:54)
[2016-11-12] MEDS: ZOSYN 3.375 GM/NS 3.375 GM/50 ML IVPB IV SCH ×4 (04:48→23:51)
[2016-11-12] MEDS: NS 1,000 ML IV SCH ×4 (04:57→23:51)
[2016-11-12 06:43] LABS: MANUAL DIFF NEEDED? NO
[2016-11-12 06:55] LABS: INR 1.31; PTT 34.8 Seconds (22.0-36.0)
[2016-11-12 06:59] LABS: BASO% 0.2 % (0.0-0.8); EOS# 0.05 X1000 (0.0-0.7); EOS% 0.4 % (0.0-10.0); HEMATOCRIT 29.2 % (37.0-47.0); HEMOGLOBIN 9.6 g/dL (12.0-16.0); IMM GRAN# 0.05 X1000 (0.0-0.04); IMM GRAN% 0.4 % (0.0-0.5); LYMPH# 2.38 X1000 (1.2-3.4); LYMPH% 21.3 % (20.5-51.1); MCHC 32.9 g/dL (33-37); MCV 100.3 FL (81-99); MONO# 0.82 X1000 (0.11-0.59); MONO% 7.3 % (1.7-9.3); MPV 10.5 FL (7.4-10.4); NEUT% 70.4 % (42.2-75.2); PLT 169 X1000 (130-400); RBC 2.91 XMIL (4.2-5.4)
[2016-11-12 07:04] LABS: ALBUMIN 2.8 g/dL (3.5-5.0); CALCIUM 8.7 mg/dL (8.8-10.2); MAGNESIUM 1.6 mg/dL (1.5-2.7); POTASSIUM 4.2 mmol/L (3.5-5.1); TOTAL BILIRUBIN 0.27 mg/dL (0.20-1.00)
[2016-11-12] MEDS ORDERED: VITAMIN D PO SCH (09:00)
[2016-11-12] MEDS: CYMBALTA PO SCH (11:05)
[2016-11-12] MEDS: PRAVACHOL PO SCH (11:06)
[2016-11-12] MEDS: PRILOSEC PO SCH (11:06)
[2016-11-12] MEDS: MOVANTIK PO SCH (11:06)
[2016-11-12] MEDS: ELIQUIS PO SCH ×2 (11:07→23:53)
[2016-11-12] MEDS: LOVAZA PO SCH ×4 (11:07→23:53)
[2016-11-12] MEDS: CITRACAL + D PO SCH (11:09)
[2016-11-12] MEDS: NORCO-7.5 PO PRN (13:48)
[2016-11-12] MEDS: NICODERM PATCH TD PRN (13:48)
--- NOTE | 2016-11-12 14:29 | PROGRESS NOTE ---
DATE: 11/12/2016 SUBJECTIVE: This patient looks much better today. She is not confused. She is completely alert and oriented x3. She is following commands and answering all my questions. Her sister is at the bedside. She is a smoker and I will add a nicotine patch to her medications also. She has been complaining of chronic pain and she uses Lortab at home. I am going to put this medication p.r.n. OBJECTIVE: Vital Signs: Temperature 98.1 degrees, pulse 91, respiratory rate 18. Blood pressure we took manually was 110/62, oxygen saturation 100% on 2 L of nasal cannula. HEENT: Head normocephalic. No trauma. PERRLA. Neck: Supple. No JVD. No masses. Central trachea. Chest: Clear to auscultation. No wheezing. No rales. Abdomen: Soft, mild tenderness to palpation at the level of the periumbilical area and left flank. Extremities: No edema. No clubbing. No cyanosis. Neurological examination: The patient is alert and oriented x3. No focal neurological deficits. LABORATORY: WBC 11.1, hemoglobin 9.6, hematocrit 29.2, platelets 169. Sodium 135, potassium 4.2, chloride 96, bicarbonate 21, BUN 40, creatinine 2.9, glucose 84, calcium 8.7, albumin 2.8. TSH 0.8. ASSESSMENT AND PLAN: 1. Urinary tract infection. I had a positive culture result that showed gram-negative rods. I will continue with Zosyn for now. This patient is getting much better. I do know that Dr. Gonzalez from urology and Dr. Hernandez from Infectious Disease Department have been taking care of this patient before. I will consult them as needed. 2. Right upper and lower quadrant abdominal tenderness to palpation, this is much better. We will monitor. 3. Metabolic and infectious encephalopathy likely secondary to urinary tract infection, acute kidney injury and dehydration. Today this patient is much better. She is completely alert and oriented times three. We will continue to monitor. 4. Arthritis and chronic pain syndrome. I put this patient back on Lortab, her home medication. We will monitor. 5. Bipolar disorder with depression. Aware. 6. Gastroesophageal reflux disease. Continue with proton pump inhibitors. 7. Hyperlipidemia. Continue with statins. 8. Hypertension. Her blood medications have been held because of this patient's hypoglycemia. 9. Acute on chronic kidney disease. This patient back on in July apparently needed dialysis. We will monitor the urine output. She came in with severe dehydration. The creatinine basically is around the same. BUN is a little bit more elevated. We will monitor. I will increase the intravenous fluids from 100 to 125. 10. History of deep vein thrombosis secondary to dialysis catheter. This patient is on Eliquis. We will continue with the same medication. 11. Gastrointestinal prophylaxis with proton pump inhibitor. 12. Tobacco abuse. This patient has been highly advised against tobacco abuse. I will continue with daily cessation education. I will put this patient on a nicotine patch. We will monitor. cc: Enio Maldonado MD
[2016-11-12] MEDS: DEPAKOTE PO SCH (23:50)
[2016-11-12] MEDS: REQUIP PO SCH (23:52)
[2016-11-13] MEDS: NS 1,000 ML IV SCH ×4 (06:15→23:31)
[2016-11-13] MEDS: ZOSYN 3.375 GM/NS 3.375 GM/50 ML IVPB IV SCH ×2 (06:15→11:26)
[2016-11-13 06:34] LABS: MANUAL DIFF NEEDED? NO
[2016-11-13 06:49] LABS: BASO% 0.1 % (0.0-0.8); EOS# 0.06 X1000 (0.0-0.7); EOS% 0.6 % (0.0-10.0); HEMATOCRIT 27.5 % (37.0-47.0); IMM GRAN# 0.06 X1000 (0.0-0.04); IMM GRAN% 0.6 % (0.0-0.5); LYMPH# 1.59 X1000 (1.2-3.4); MCH 32.5 PG (27-31); MCHC 32.7 g/dL (33-37); MCV 99.3 FL (81-99); MONO# 0.61 X1000 (0.11-0.59); MONO% 5.8 % (1.7-9.3); MPV 10.4 FL (7.4-10.4); NEUT% 77.9 % (42.2-75.2); PLT 148 X1000 (130-400); RBC 2.77 XMIL (4.2-5.4)
[2016-11-13 07:11] LABS: CALCIUM 8.2 mg/dL (8.8-10.2); POTASSIUM 4.1 mmol/L (3.5-5.1)
[2016-11-13] MEDS: PRILOSEC PO SCH (09:42)
[2016-11-13] MEDS: CYMBALTA PO SCH (09:42)
[2016-11-13] MEDS: NORCO-7.5 PO PRN ×3 (09:43→22:17)
[2016-11-13] MEDS: ELIQUIS PO SCH ×2 (09:43→22:15)
[2016-11-13] MEDS: PRAVACHOL PO SCH (09:43)
[2016-11-13] MEDS: LOVAZA PO SCH ×3 (09:43→22:15)
[2016-11-13] MEDS: CITRACAL + D PO SCH (09:43)
[2016-11-13] MEDS ORDERED: BLISTEX MEDICATED BERRY LIP BALM TOP PRN (09:44)
[2016-11-13] MEDS: MOVANTIK PO SCH (09:44)
--- NOTE | 2016-11-13 11:27 | PROGRESS NOTE ---
DATE: 11/13/2016 SUBJECTIVE: This patient is feeling good. She is having gross hematuria. We did a renal CT that showed right nephrosis to the level of the urinary bladder; reason is unclear. Apparent dense material in the urinary bladder which may be blood. She had a procedure done by Dr. Shyam Gonzalez before. I have placed a consult to evaluate this patient. Urine culture showed E. coli sensitive to Zosyn. Since this is recurrent and Dr. Hernandez has been following this patient as an outpatient, I will consult him. OBJECTIVE: Vital Signs: Temperature 98.2 degrees, pulse 87, respiratory rate 18, blood pressure 115/36, oxygen saturation 96% on 2 L of nasal cannula. HEENT: Head normocephalic. No trauma. PERRLA. Neck: Supple. No JVD. No masses. Central trachea. Chest: Clear to auscultation. No wheezing. No rales. Abdomen: Soft. Tender to palpation at the level of the right flank and right lower quadrant area. CVA tenderness as well. Positive bowel sounds. Extremities: No edema. No clubbing. No cyanosis. Neurological: The patient is alert and oriented x3. No focal neurological deficits. LABORATORY: WBC 10.5, hemoglobin 9, hematocrit 27.5, platelets 148,000. Sodium 132, potassium 4.1, chloride 95, bicarbonate 17, BUN 40, creatinine 2.9, glucose 74, calcium 8.2. ASSESSMENT AND PLAN: 1. Urinary tract infection. We have a positive culture result that showed E. coli sensitive to Zosyn. I will continue with the same medication. I have consulted Dr. Hernandez for this, to treat this patient. Probably she needs long-term antibiotics. 2. Right flank and lower quadrant abdominal pain with CVA tenderness. We have a have a CT scan done showed right nephrosis to the level of the right urinary bladder. Also there is apparent dense material in the urinary bladder which may be blood. Urology department has been consulted. 3. Gross hematuria. Continue with IV fluids. Urology department, Dr. Gonzalez, has been consulted. 4. Metabolic and infectious encephalopathy. Likely secondary to urinary tract infection, acute kidney injury, and dehydration. Resolved. 5. Arthritis and chronic pain syndrome. Continue with home medication. 6. Bipolar disorder and depression. Aware. 7. Gastroesophageal reflux disease. Continue with PPIs. 8. Hyperlipidemia. Continue with statins. 9. Hypertension. Blood pressure medication has been held because of this patient's hypotension. At this moment her blood pressure is controlled without blood pressure medication. 10. Acute on chronic kidney disease. BUN and creatinine did not change from 2 yesterday. Will continue to monitor. 11. Gastrointestinal prophylaxis with proton pump inhibitors. 12. Tobacco abuse. This patient has been highly advised against tobacco abuse. Will continue with daily cessation education and nicotine patch. cc: Enio Maldonado MD MTDD
[2016-11-13] MEDS: NICODERM PATCH TD PRN (18:33)
--- NOTE | 2016-11-13 19:14 | CONSULTATION ---
DATE OF CONSULTATION: 11/13/2016 ATTENDING AND REFERRING PHYSICIAN: Hospitalist. HISTORY OF PRESENT ILLNESS: This 66-year-old female with multiple medical problems, was admitted with mental status changes and urinary tract infection. The patient had these same symptoms in July of 2016, where a CT scan revealed left hydronephrosis. She also had a urinary tract infection. A double-J stent was placed. Further evaluation did not reveal any stone and her collecting system returned to normal. The double-J stent was removed on 13 of October and her bilateral retrograde ureteral pyelograms had no filling defects or obstruction. 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 She does have a history of significant back problems and is status post multiple back surgeries and placement of a bone fixator. She also had a pelvic fracture and placement of a left hip prosthesis that causes significant artifact on CT scans. The patient states that she was doing well, but then started having problems with right upper quadrant abdominal pain and some right flank pain several days ago. An abdominal ultrasound was obtained by her family physician, that revealed a surgically absent gallbladder, but somewhat dilated biliary system, but kidneys were normal. She continued to have problems and was admitted through the emergency room. A CT scan revealed a normal left collecting system; however, there was some dilation of the right side. No stone was visualized. The patient was started on IV antibiotics. She states she feels better and is alert at this time. Her urine grew Escherichia coli that was sensitive to the antibiotic she is on. PAST MEDICAL HISTORY: Hypertension, elevated cholesterol, COPD, gastroesophageal reflux disease, elevated cholesterol, bipolar disorder, depression, irritable bowel syndrome, restless legs syndrome, chronic kidney disease stage 3. Her baseline creatinine is around 1.7. CURRENT MEDICATIONS: Documented on the chart. PAST SURGICAL HISTORY: Cystoscopic exam with placement of a left double-J stent and then subsequent removal with bilateral retrograde ureteral pyelograms. Cholecystectomy, hysterectomy, left hip arthroplasty, lumbar fusion with placement of a bone fixator, and cervical disk surgery. SOCIAL HISTORY: Cigarettes a pack a day for over 20 years. ETOH use negative for 11 years. ALLERGIES: She is allergic to olanzapine. REVIEW OF SYSTEMS: She denies any problems with diabetes, strokes, or seizures. She states she is feeling better, but still has some right abdominal and right flank discomfort. PHYSICAL EXAMINATION: General: A normally developed, well-nourished, age apparent white female, oriented in all ways, and cooperative. HEENT: Normal for age. Lungs: Clear. Cardiovascular: Regular rate and rhythm. Abdomen: Protuberant, soft, nontender. No hepatosplenomegaly or masses. Normal bowel sounds. Genitourinary: Normal external female with Hardwick catheter in place. Atrophic mucosa. No adnexal masses or tenderness. Neurological: No focal deficits. LABORATORY EVALUATION: CBC with white count 10.58, hemoglobin of 9, hematocrit 27.5, platelets are 148,000. Serum electrolytes have a sodium of 132, potassium 4.1, chloride 95, bicarb 17. BUN 40, creatinine 2.9. Urine culture is as noted in the history of present illness. IMPRESSION: 1. Escherichia coli urinary tract infection sensitive to Zosyn. 2. Neurogenic bladder. Supposed to be self cathing 4 or more times a day (question compliance). 3. Question of right hydronephrosis versus changes from right pyelonephritis. 4. Renal insufficiency. Recommend continue Hardwick catheter drainage until renal function at baseline. 5. Discussed with patient needs to self-catheterize at least 4 times a day to keep the amount out around 350 mL with each catheterization. If that requires 5 or 6 times a day, then that is what it will take. 6. Continue Zosyn. 7. If her creatinine does not improve over the next 48 hours, we will need to do cystoscopy and place right double-J stent. Thank you for this consultation. cc: Shyam Gonzalez MD
--- NOTE | 2016-11-13 21:06 | PROGRESS NOTE ---
DATE: 11/13/2016 CONCLUSION: The patient comes in due to an altered mental status and weakness. This most likely was secondary to an E. coli urinary tract infection. The patient recently was in with a urinary tract infection and at that time she had a left hydronephrosis and a stent was put in by Dr. Gonzalez. This time the patient's renal CT scan shows a right hydroureteronephrosis. There was no definite evidence of a stone or other blockage and there was dense material in the bladder which could have been due to blood. The patient also last time had a decrease in her IgG level. MEDICATIONS: The patient was on Zosyn and I switched her to cefazolin. PHYSICAL EXAMINATION: Vital Signs: Temperature is 98.4 degrees, pulse 83, respirations 18, blood pressure 118/52. Patient weighs 140 pounds. General: This is a somewhat ill-appearing, elderly female. She is in no acute distress. Lungs: Clear to auscultation. Cardiovascular: Heart rate is regular. Abdomen: Patient is tender in the right lateral medial part of the abdomen and also in the right flank. Neurologic: Patient is alert. She can move her extremities. There is no tremor. The patient did seem to have a decrease in her memory as regarding her medical history, however. LAB AND X-RAY: As mentioned above the patient's CT scan showed a right hydroureteronephrosis with dense material seen in the bladder. The patient's CBC showed a white count of 10,580, hemoglobin 9 and platelet count 148,000. Creatinine is 2.9. The GFR is 16. As mentioned above, the patient's IgG level last time was low. Patient's urine culture grew E. coli. No blood cultures were done. The patient's chest x-ray showed no pneumonia. ASSESSMENT AND PLAN: Patient has an Escherichia coli urinary tract infection which is involving the right kidney. There is hydroureteronephrosis suggesting possible blockage present. My plan is to treat the patient with cefazolin for the time. The dose I put her on is 1 g IV every 12 hours. Also, I have ordered immunoglobulin levels to be repeated. Dr. Gonzalez is seeing the patient and he will determine what if anything needs to be done about the hydroureteronephrosis. I plan to treat the patient for at least 2 weeks with an IV antibiotic because her kidney definitely is involved. It is of note during the patient's last visit for urinary tract infection the organism isolated at that time was the same Escherichia coli and it at that time was an extended spectrum beta lactamase producing E. coli. This time it is not an extended spectrum beta lactamase producing E coli but it is resistant to antibiotics, specifically it is resistant to ampicillin, Unasyn, gentamicin, Levaquin, and tobramycin, is susceptible to cefazolin, Septra and piperacillin/tazobactam. COMORBIDITIES: She has urinary incontinence, Dr. Gonzalez mentioned that she may have a large residual urine and the patient had not been doing self-catheterization. Also it is possible that the patient's low IgG level is responsible in part for her recurrent urinary tract infections. cc: Maldonado Hernandez MD
[2016-11-13] MEDS: REQUIP PO SCH (22:16)
[2016-11-13] MEDS: DEPAKOTE PO SCH (22:17)
[2016-11-13] MEDS: KEFZOL 1 GM/D5W 1 GM/50 ML IVPB IV SCH (22:21)
[2016-11-13] MEDS: DESYREL PO SCH (23:46)
--- NOTE | 2016-11-14 06:25 | EKG Report ---
Test Performed on : 11/12/2016 06:26:19 AM Test Reason : chest pain Blood Pressure : / mmHG Vent. Rate : 082 BPM Atrial Rate : 082 BPM P-R Int : 128 ms QRS Dur : 078 ms QT Int : 380 ms P-R-T Axes : 071 014 025 degrees QTc Int : 443 ms Normal sinus rhythm. Nonspecific ST abnormality Abnormal ECG When compared with ECG of 11-NOV-2016 14:02, (Unconfirmed) Vent. rate has decreased BY 41 BPM Confirmed by Pedro DURHAM, Geoffrey May ([id number]) on 11/15/2016 2:14:54 PM
[2016-11-14 07:00] LABS: MANUAL DIFF NEEDED? NO
[2016-11-14 07:16] LABS: BASO% 0.1 % (0.0-0.8); EOS# 0.14 X1000 (0.0-0.7); EOS% 1.6 % (0.0-10.0); HEMATOCRIT 26.1 % (37.0-47.0); HEMOGLOBIN 8.6 g/dL (12.0-16.0); IMM GRAN# 0.02 X1000 (0.0-0.04); IMM GRAN% 0.2 % (0.0-0.5); LYMPH# 1.88 X1000 (1.2-3.4); MCH 32.5 PG (27-31); MCV 98.5 FL (81-99); MONO# 0.49 X1000 (0.11-0.59); MONO% 5.5 % (1.7-9.3); MPV 10.4 FL (7.4-10.4); NEUT% 71.6 % (42.2-75.2); PLT 148 X1000 (130-400); RBC 2.65 XMIL (4.2-5.4)
[2016-11-14 07:19] LABS: CALCIUM 8.6 mg/dL (8.8-10.2); POTASSIUM 3.8 mmol/L (3.5-5.1)
[2016-11-14] MEDS: KEFZOL 1 GM/D5W 1 GM/50 ML IVPB IV SCH ×2 (08:29→11:33)
[2016-11-14] MEDS: CYMBALTA PO SCH (08:34)
[2016-11-14] MEDS: LOVAZA PO SCH ×4 (08:35→20:35)
[2016-11-14] MEDS: MOVANTIK PO SCH (08:35)
[2016-11-14] MEDS: CITRACAL + D PO SCH (08:36)
[2016-11-14] MEDS: ELIQUIS PO SCH ×2 (08:36→20:36)
[2016-11-14] MEDS: PRILOSEC PO SCH (08:36)
[2016-11-14] MEDS: PRAVACHOL PO SCH (08:36)
--- NOTE | 2016-11-14 08:42 | PROGRESS NOTE ---
DATE: 11/14/2016 PRESENT ILLNESS: The patient has an Escherichia coli urinary tract infection. She has a right- sided hydroureteronephrosis. MEDICATIONS: The patient is receiving Ancef at a dose of 1 g IV every 12 hours. The dose has been modified because the patient has end-stage renal disease. PHYSICAL EXAMINATION: Vital Signs: Temperature is 97.6 degrees, pulse 77, respirations 20, blood pressure 137/52. General: This is a somewhat ill-appearing, elderly female. She is in no acute distress. She told me she is feeling much better now. Her memory is better. She can move better and has an appetite. Lungs: Clear to auscultation. Cardiovascular: Regular heart rate. Abdomen and flanks: Soft and nontender. Neurologic: Patient is alert. She can move her extremities. There is no tremor. LAB AND X-RAY: Patient's creatinine is 2.5. GFR is 19. CBC shows a white count of 8,960, hemoglobin 8.6, and platelet count 148,000. There is no new radiographic study for today. ASSESSMENT AND PLAN: Patient has a urinary tract infection and there could questionably be some blockage associated on the right side. For now, I am going to continue with Ancef and when the patient goes home, most likely I will switch her to Keflex to treat her for at least 2 weeks since the infection I think involves the kidneys. Dr. Gonzalez will determine if any further study is indicated because of the right-sided hydroureteronephrosis. Patient's comorbidities, she may have urinary incontinence. She apparently does not self-catheterize herself in order to lower the postvoid residual urine. The last time the patient was in the hospital her IgG level was low. I have gone ahead and ordered repeat immunoglobulin levels. The results are still pending. cc: Maldonado Hernandez MD
[2016-11-14] MEDS: NORCO-7.5 PO PRN ×2 (08:52→16:25)
[2016-11-14 10:37] LABS: UR CREAT RANDOM 18.9 mg/dL (11-20); UR PROT RANDOM 75.8 mg/dL
--- NOTE | 2016-11-14 16:03 | PROGRESS NOTE ---
DATE: 11/14/2016 SUBJECTIVE: The patient states that she feels a lot better today. She has no complaints at this time. OBJECTIVE: Vital Signs: Temperature 97 degrees, blood pressure 138/59, heart rate 81, respirations 20, O2 saturations 100% on room air. General: This is an elderly female lying in bed in no acute distress. Head: Normocephalic, atraumatic. Heart: S1, S2. Normal. Regular rate and rhythm. Lungs: Clear to auscultation bilaterally. No wheezes, no rales. No rhonchi. Abdomen: Positive bowel sounds. Soft, nontender, nondistended. Extremities: No edema. No cyanosis. No calf tenderness. Neurologic: The patient is alert, oriented x3. No focal neurologic deficits noted. LABS: White blood cell count 8.9, hemoglobin 8.6, hematocrit 26, platelets 148 ,000. Sodium 136, potassium 3.8, chloride 102, CO2 20, BUN 32, creatinine 2.5, glucose 74, calcium 8.6. ASSESSMENT AND PLAN: 1. Right hydroureteronephrosis with neurogenic bladder. The patient is being followed by Dr. Gonzalez who recommended intermittent straight catheterization at least 4 times a day. The patient states that she was straight catheterizing herself twice a day at home. 2. Acute kidney injury on chronic kidney disease. Slowly improving. Will continue to monitor this closely. 3. Urinary tract infection secondary to Escherichia coli. Continue on cefazolin as directed by Dr. Hernandez. 4. Vitamin D deficiency. Continue on vitamin D replacement. 5. Constipation. Continue on Movantik. 6. Bipolar disorder. Aware. 7. Metabolic encephalopathy. Resolved. 8. Gastroesophageal reflux disease . Continue on Prilosec. 9. Will consult physical therapy. 10. Disposition. This will depend on how the patient does with physical therapy. The patient does have home health. cc: Janessa Owens MD MTDD
[2016-11-14] MEDS: NS 1,000 ML IV SCH (16:22)
[2016-11-14] MEDS: DEPAKOTE PO SCH (20:36)
[2016-11-14] MEDS: DESYREL PO SCH (20:36)
[2016-11-14] MEDS: REQUIP PO SCH (20:36)
[2016-11-14] MEDS ORDERED: MYLICON PO PRN (20:39)
[2016-11-15] MEDS: KEFZOL 1 GM/D5W 1 GM/50 ML IVPB IV SCH ×3 (00:08→22:02)
[2016-11-15] MEDS: NORCO-7.5 PO PRN ×3 (00:45→22:02)
[2016-11-15] MEDS: NS 1,000 ML IV SCH ×2 (05:57→17:37)
[2016-11-15 07:19] LABS: HEMATOCRIT 27.3 % (37.0-47.0); HEMOGLOBIN 8.9 g/dL (12.0-16.0); MCH 33.2 PG (27-31); MCHC 32.6 g/dL (33-37); MCV 101.9 FL (81-99); MPV 10.8 FL (7.4-10.4); RBC 2.68 XMIL (4.2-5.4)
[2016-11-15 07:28] LABS: ALBUMIN 2.3 g/dL (3.5-5.0); CALCIUM 8.6 mg/dL (8.8-10.2); POTASSIUM 3.8 mmol/L (3.5-5.1)
--- NOTE | 2016-11-15 08:33 | Diag Imaging Result Doc PS360 ---
US RENAL 2 (RETROPER) COMPLETE - 11/15/2016 INDICATION: hydroureter TECHNIQUE: COMPARISON: CT from 11/11/2016 FINDINGS: There is mild to moderate hydronephrosis of the right kidney similar to the prior exam. Renal sizes are normal. The left kidney appears normal. Normal color Doppler flow. Urinary bladder is collapsed with a Hardwick catheter. The right kidney measures 12.4 x 6.4 x 5.5 cm. Cortex measures 17 mm. The left kidney measures 12.2 x 5 x 5.8 cm. Cortex measures 15 mm. IMPRESSION: Mild to moderate right hydronephrosis similar to prior. Electronically signed by Tyron August 11/15/2016 8:31 AM
--- NOTE | 2016-11-15 08:33 | PROGRESS NOTE ---
DATE: 11/15/2016 PRESENT ILLNESS: The patient has an Escherichia coli urinary tract infection. This is a recurrent problem for the patient. The patient has been receiving Ancef in a dose of 1 g IV every 12 hours. The dose was modified because the patient has end-stage renal disease. PHYSICAL EXAMINATION: Vital Signs: Temperature is 98.3 degrees, pulse 82, respirations 20, blood pressure 136/52. General: This is a chronically ill-appearing, elderly female who is in no acute distress. Lungs: Clear to auscultation. Cardiovascular: Regular heart rate. Abdomen and Flanks: The patient had right-sided lateral pain as well as right flank pain. Both those areas were tender also. LAB AND X-RAY: The only new lab is the immunoglobulin levels came back. IgG was normal at 752 and IgA was slightly low at 65. ASSESSMENT AND PLAN: From an infectious disease position, I think the patient can be discharged. Through the computer, I produced a prescription for Keflex 500 mg p.o. every 8 hours for 20 days. I will plan to see the patient back in my office in [address] Gonzalez will decide about if the patient needs a stent placed. In this regard, I have gone ahead and ordered a renal ultrasound for this morning to see if the hydroureter has cleared or not. As mentioned above, Dr. Gonzalez will determine what if anything needs to be done surgically. It is already noted that he recommended that the patient should self catheterize herself every 6 hours. I have noticed where the patient said she could do it twice a day. If she only does it twice a day and there are large urine residuals, then the likelihood of getting another infection would be high. The patient's IgA level is very slightly decreased but from a practical point of view, I think that 1st of all that is not low enough to be any problem. Also, the patient's IgA level, while slightly decreased, I do not think it is low enough to be causing any problems and even if it were, we do not have a good replacement product for IgA. For IgG, we do have a good replacement product. My plan now is to have the patient go home after Dr. Gonzalez sees her today. Have the computer write for a Keflex prescription for 60 tablets which should be enough for a 3 week supply. I have requested that the patient see me in the office in 3 weeks. The patient's comorbidities are that she has possible urinary retention and possible urinary tract blockage. Also, she has end-stage renal disease. I will be seeing the patient in the office 3 weeks after discharge. cc: Maldonado Hernandez MD
[2016-11-15] MEDS: MOVANTIK PO SCH (09:40)
[2016-11-15] MEDS: PRILOSEC PO SCH (09:40)
[2016-11-15] MEDS: CYMBALTA PO SCH (09:40)
[2016-11-15] MEDS: CULTURELLE PO SCH (09:40)
[2016-11-15] MEDS: ELIQUIS PO SCH ×2 (09:41→22:01)
[2016-11-15] MEDS: CITRACAL + D PO SCH (09:41)
[2016-11-15] MEDS: PRAVACHOL PO SCH (09:41)
[2016-11-15] MEDS: LOVAZA PO SCH ×4 (09:41→22:01)
--- NOTE | 2016-11-15 15:51 | PROGRESS NOTE ---
DATE: 11/15/2016 SUBJECTIVE: The patient is resting comfortably in bed. She states that she had some difficulty sleeping last night. She is having regular bowel movements and she has been ambulating with physical therapy. OBJECTIVE: Vital Signs: Temperature 98 degrees, blood pressure 128/67, heart rate 84, respirations 16, O2 saturations 99% on room air. General: This is an elderly female, lying in bed, in no acute distress. Head: Normocephalic, atraumatic. Heart: S1, S2. Normal. Regular rate and rhythm. Lung: Clear to auscultation bilaterally. Abdomen: Positive bowel sounds. Soft, nontender, nondistended. Extremities: No edema. No cyanosis. No calf pain tenderness. Neuro: The patient is alert, oriented x3. LABS: White blood cell count 7.3, hemoglobin 8.9, hematocrit 27, platelets 161,000. Sodium 137, potassium 3.8, chloride 103, CO2 22, BUN 23, creatinine 2.4. Glucose 70, albumin 2.3. ASSESSMENT AND PLAN: 1. Right hydroureteronephrosis with neurogenic bladder. The patient currently has a Hardwick catheter in place. Dr. Gonzalez is following. 2. Acute kidney injury on chronic kidney disease. The patient's renal function is slowly improving. The patient has very good urine output. We will continue to monitor this closely. 3. Urinary tract infection secondary to E. coli. The patient will be transitioned to oral antibiotic therapy as per Dr. Hernandez. 4. Constipation. Continue on Movantik. 5. Vitamin D deficiency. Continue on vitamin D replacement. 6. Metabolic encephalopathy. Resolved. 7. Anxiety disorder. Aware. 8. Gastroesophageal reflux disease. Continue on Prilosec. 9. Continue with physical therapy. cc: Janessa Owens MD
[2016-11-15] MEDS: DEPAKOTE PO SCH (22:01)
[2016-11-15] MEDS: REQUIP PO SCH (22:01)
[2016-11-15] MEDS: XANAX PO SCH (22:02)
[2016-11-16] MEDS: NS 1,000 ML IV SCH ×2 (03:31→17:52)
[2016-11-16 07:18] LABS: ALBUMIN 2.6 g/dL (3.5-5.0); CALCIUM 8.5 mg/dL (8.8-10.2); POTASSIUM 4.6 mmol/L (3.5-5.1)
--- NOTE | 2016-11-16 07:30 | PROGRESS NOTE ---
DATE: 11/16/2016 PRESENT ILLNESS: The patient has an Escherichia coli urinary tract infection complicated by right- sided hydronephrosis. MEDICATIONS: The patient is on Ancef in a reduced dose of 1 gram IV every 12 hours because of the patient's end-stage renal disease. PHYSICAL EXAMINATION: Vital Signs: Temperature is 97.8 degrees, pulse 79, respirations 14, blood pressure 116/67. General: This is a fairly healthy-appearing elderly female. She is in no acute distress at this time. Lungs: Clear to auscultation. Cardiovascular: Regular heart rate. Abdomen/Flanks: There was some tenderness in the right lateral abdomen and the right flank area. Neurologic: The patient is awake. She can move her extremities. LABORATORY AND X-RAY STUDIES: A renal ultrasound done yesterday shows continued right-sided hydronephrosis. The patient's CBC shows a white count of 7370, hemoglobin 8.9, and platelet count 161,000. Creatinine is 2.4. GFR is 20. ASSESSMENT AND PLAN: The patient has a urinary tract infection, for which she is getting Ancef, and when she goes home, this will be changed to Keflex. It is my understanding that Dr. Gonzalez will be either today or tomorrow putting in a stent on the right side in case there is any blockage that we were unable to see with the MRI. The plan is to continue with IV antibiotics in the hospital and then send the patient home on PO Keflex to complete a total of 6 weeks of treatment. cc: Maldonado Hernandez MD MTDD
[2016-11-16] MEDS: KEFZOL 1 GM/D5W 1 GM/50 ML IVPB IV SCH ×3 (09:05→21:32)
[2016-11-16] MEDS: PRILOSEC PO SCH (09:06)
[2016-11-16] MEDS: LOVAZA PO SCH ×4 (09:06→20:15)
[2016-11-16] MEDS: CULTURELLE PO SCH (09:06)
[2016-11-16] MEDS: CYMBALTA PO SCH (09:06)
[2016-11-16] MEDS: CITRACAL + D PO SCH (09:07)
[2016-11-16] MEDS: ELIQUIS PO SCH ×2 (09:07→20:15)
[2016-11-16] MEDS: MOVANTIK PO SCH (09:07)
[2016-11-16] MEDS: PRAVACHOL PO SCH (09:07)
[2016-11-16 12:11] LABS: UR CREATININE 15.8 mg/dL (11-20); UR PROTEIN 16.9 mg/dL
[2016-11-16] MEDS: NORCO-7.5 PO PRN ×2 (13:33→21:32)
--- NOTE | 2016-11-16 14:33 | PROGRESS NOTE ---
DATE: 11/16/2016 SUBJECTIVE: The patient is resting comfortably in bed. She has no complaints. No acute events noted overnight. OBJECTIVE: Vital Signs: Temperature 98 degrees, blood pressure 141/57, heart rate respirations 22, O2 saturations 100% on room air. General: This is an elderly female, lying in bed, in no acute distress. Head: Normocephalic, atraumatic. Heart: S1, S2. Normal. Regular rate and rhythm. Lungs: Clear to auscultation bilaterally. No wheezes , no rales. No rhonchi. Abdomen: Positive bowel sounds. Soft, nontender, nondistended. Extremities: No edema. No cyanosis. No calf tenderness. Neurologic: The patient is alert and oriented x3. LABS: Sodium 138, potassium 4.6, chloride 103, CO2 19, BUN 21, creatinine 2.2. Glucose 74. ASSESSMENT AND PLAN: 1. Right hydroureteronephrosis with a neurogenic bladder. Management as per Dr. Gonzalez. 2. Acute kidney injury on chronic kidney disease. This continues to improve daily. Continue to monitor closely. 3. Urinary tract infection secondary to E. coli. Continue on antibiotic therapy. 4. Vitamin D deficiency. Continue on vitamin D replacement. 5. Metabolic encephalopathy. Resolved. 6. Anxiety disorder. Aware. 7. Gastroesophageal reflux disease. Continue on Prilosec. 8. Continue with physical therapy. 9. Disposition. Will discharge home once cleared by Dr. Gonzalez. cc: Janessa Owens MD MTDD
[2016-11-16] MEDS: REQUIP PO SCH (20:15)
[2016-11-16] MEDS: DEPAKOTE PO SCH (20:15)
[2016-11-16] MEDS: XANAX PO SCH (20:16)
[2016-11-17] MEDS: NS 1,000 ML IV SCH (06:38)
--- NOTE | 2016-11-17 07:54 | PROGRESS NOTE ---
DATE: 11/17/2016 PRESENT ILLNESS: The patient has an Escherichia coli urinary tract infection complicated by right- sided hydronephrosis. Today, the patient is going to have the placement of a stent in the right ureter by Dr. Gonzalez. MEDICATIONS: Patient is on Ancef in a dose of 1 g IV every 12 hours. PHYSICAL EXAMINATION: Vital Signs: Temperature is 98.2 degrees, pulse is 79, respirations 18, blood pressure 134/50. Generally: This is a fairly healthy-appearing, elderly female. She is in no acute distress. Lungs: Clear to auscultation. Cardiovascular: Heart rate is regular. Abdomen and Flanks: There is less tenderness in the mid lateral abdomen and flank area than there was yesterday. LAB AND X-RAY: The patient's CBC for today shows a white count of 7370, hemoglobin 8.9, and platelet count 161,000. The patient's creatinine is 2.2 with a GFR of 22. ASSESSMENT AND PLAN: The patient has a urinary tract infection. I plan to continue Ancef 1 g IV every 12 hours while the patient is in the hospital and when she goes home, I will be switching her to Keflex 500 mg p.o. every 12 hours to complete a 6 week treatment course. COMORBIDITY: Neurogenic bladder, not following order to self catheterize 4 times per day. cc: Maldonado Hernandez MD MTDD
[2016-11-17] MEDS: NORCO-7.5 PO PRN ×2 (08:13→22:19)
[2016-11-17 08:40] LABS: ALBUMIN 2.2 g/dL (3.5-5.0); CALCIUM 8.5 mg/dL (8.8-10.2); POTASSIUM 5.4 mmol/L (3.5-5.1)
[2016-11-17] MEDS: PRILOSEC PO SCH (10:39)
[2016-11-17] MEDS: SODIUM BICARBONATE PO SCH ×2 (10:39→20:13)
[2016-11-17] MEDS: SODIUM BICARBONATE 8.4% 100 MEQ in 1/2 NS 1,000 ML IV SCH (10:40)
[2016-11-17] MEDS: CULTURELLE PO SCH (10:40)
[2016-11-17] MEDS: CITRACAL + D PO SCH (10:40)
[2016-11-17] MEDS: ELIQUIS PO SCH ×2 (10:40→20:12)
[2016-11-17] MEDS: KEFZOL 1 GM/D5W 1 GM/50 ML IVPB IV SCH ×2 (10:51→22:19)
[2016-11-17] MEDS: LOVAZA PO SCH ×4 (10:55→20:12)
[2016-11-17] MEDS: CYMBALTA PO SCH (10:56)
[2016-11-17] MEDS: MOVANTIK PO SCH (10:56)
[2016-11-17] MEDS: PRAVACHOL PO SCH (10:56)
[2016-11-17] MEDS ORDERED: DIPRIVAN 1% ONE (16:41)
[2016-11-17] MEDS ORDERED: XYLOCAINE-MPF 2% ONE (16:41)
[2016-11-17] MEDS ORDERED: NEOSPORIN G.U. IRRIGANT ONE (16:43)
--- NOTE | 2016-11-17 17:52 | PROGRESS NOTE ---
DATE: 11/17/2016 SUBJECTIVE: The patient is resting comfortably in bed. She is scheduled to undergo cystoscopy today. OBJECTIVE: Vital signs: Temperature 98, blood pressure 130/75, heart rate 88, respirations 16, O2 saturation 100% on room air. General: The patient is laying comfortably in bed in no acute distress. Head: Normocephalic, atraumatic. Heart: S1, S2. No murmur. Regular rate and rhythm. Lungs: Clear to auscultation bilaterally. Abdomen: Positive bowel sounds. Soft, nontender, nondistended. Extremities: No edema, no cyanosis, no calf tenderness. Neurologic: She is alert and oriented x3. LABORATORY DATA: Sodium 131, potassium 5.4, chloride 97, CO2 of 15, BUN 21, creatinine 1.9, glucose 60. ASSESSMENT AND PLAN: 1. Right hydroureteronephrosis. The patient is scheduled to undergo cystoscopy today. 2. Acute kidney injury on chronic kidney disease. Improving. 3. Urinary tract infection secondary to Escherichia coli. Continue on antibiotic therapy. 4. Vitamin D deficiency. Continue with vitamin D replacement. 5. Anxiety disorder. Aware. 6. Metabolic encephalopathy. Resolved. 7. Gastroesophageal reflux disease. Continue on Prilosec. 8. Continue with physical therapy. cc: Janessa Owens MD
--- NOTE | 2016-11-17 17:59 | OPERATIVE NOTE ---
PROCEDURE DATE: 11/17/2016 SURGEON: Shyam Gonzalez MD POSTOPERATIVE DIAGNOSIS: 1. Right flank pain. 2. Mildly rotated right kidney. 3. Possible right hydronephrosis. POSTOPERATIVE DIAGNOSIS: 1. Right flank pain. 2. Mildly rotated right kidney. 3. Possible right hydronephrosis. 4. No hydronephrosis noted. INDICATIONS FOR PROCEDURE: This 66-year-old female has a history of a neurogenic bladder and right flank pain. She is being treated for right pyelonephritis. She has persistent right flank pain. A CT scan and renal ultrasound described mild right hydronephrosis. She is going to have a double-J stent placed to see if that will help with her discomfort. DESCRIPTION OF PROCEDURE: After informed consent was obtained from the patient and her receiving IV antibiotics, she was taken the main OR cystoscopy room, placed in the supine position. General anesthesia via laryngeal mask was achieved. She was then placed in a low lithotomy position. Her indwelling Hardwick catheter was removed. She was then prepped and draped in the usual sterile fashion for cystoscopic exam. A 21-Macedonian sheath cystoscope was passed through the patient's urethra and into the bladder. The urethra was greater than 21-Macedonian. The ureteral orifices were normal bilaterally. No papillary lesions. No trabeculations. There was mild bullous edema on the posterior bladder wall consistent with her indwelling Hardwick catheter. An 8-Macedonian cone-tipped catheter was passed through the cystoscope, engaged the right ureteral orifice. Contrast was injected that revealed a narrowing of the distal ureter. The 8-Macedonian cone-tipped catheter easily passed through this area. Contrast was injected up into the kidney. There was mild malrotation of the kidney, but the calices appeared delicate. There were no filling defects seen. The 8- Macedonian cone-tipped catheter was removed. A 0.035 zip wire was passed through the cystoscope and engaged the right ureteral orifice, advanced up into the kidney. A 6-Macedonian, 22 cm double-J stent was passed over the zip wire and up into the kidney. The renal end was verified by fluoroscopic exam, bladder end directly visualized. Stent removal string was removed. The bladder was left distended. A 16-Macedonian Hardwick catheter was returned to the bladder, 10 mL sterile water placed in the Hardwick's balloon. Hardwick was placed to gravity drainage. The efflux was clear. exam was performed that revealed normal external female. Atrophic mucosa. No adnexal masses. Palpably normal bladder. She tolerated the procedure well. Estimated blood loss was 0. She was taken to the recovery room in good condition. cc: Shyam Gonzalez MD
[2016-11-17] MEDS: REQUIP PO SCH (20:12)
[2016-11-17] MEDS: XANAX PO SCH (20:13)
[2016-11-17] MEDS: DEPAKOTE PO SCH (20:13)
[2016-11-17] MEDS ORDERED: CALMOSEPTINE OINTMENT TOP PRN (22:18)
[2016-11-18] MEDS: SODIUM BICARBONATE 8.4% 100 MEQ in 1/2 NS 1,000 ML IV SCH ×2 (03:03)
[2016-11-18 07:00] LABS: HEMATOCRIT 27.1 % (37.0-47.0); HEMOGLOBIN 8.8 g/dL (12.0-16.0); MCHC 32.5 g/dL (33-37); MCV 101.5 FL (81-99); RBC 2.67 XMIL (4.2-5.4)
[2016-11-18 07:18] LABS: CALCIUM 8.5 mg/dL (8.8-10.2); POTASSIUM 4.1 mmol/L (3.5-5.1)
[2016-11-18] MEDS: NORCO-7.5 PO PRN (07:44)
[2016-11-18] MEDS: LOVAZA PO SCH ×2 (07:44→08:07)
[2016-11-18] MEDS: CULTURELLE PO SCH ×2 (07:44→08:07)
[2016-11-18] MEDS: PRAVACHOL PO SCH ×2 (07:45→08:07)
[2016-11-18] MEDS: MOVANTIK PO SCH ×2 (07:45→08:08)
[2016-11-18] MEDS: SODIUM BICARBONATE PO SCH ×2 (07:45→08:07)
[2016-11-18] MEDS: PRILOSEC PO SCH ×2 (07:45→08:08)
[2016-11-18] MEDS: ELIQUIS PO SCH ×2 (07:45→08:07)
[2016-11-18] MEDS: CITRACAL + D PO SCH ×2 (07:45→08:07)
[2016-11-18] MEDS: CYMBALTA PO SCH ×2 (07:45→08:07)
[2016-11-18] MEDS: NICODERM PATCH TD PRN (07:54)
--- NOTE | 2016-11-18 08:24 | Diag Imaging Result Doc PS360 ---
EXAM: RETROGRADES 2 OR 3 FILMS HISTORY: RT RETROGRADE AND STENT INSERTION TECHNIQUE: 30 films submitted COMPARISON: None. FINDINGS: There is retrograde filling of the right ureter. No obstruction to retrograde flow. Poor distention or narrowing to the distal right ureter. A right ureteral stent was placed. There may be a duplicating collecting system on the right. The upper pole calyx is poorly seen. IMPRESSION: Right ureteral stent placed. Electronically signed by Kevin Arvizu 11/18/2016 8:21 AM
--- NOTE | 2016-11-18 09:00 | PROGRESS NOTE ---
DATE: 11/18/2016 PRESENT ILLNESS: The patient has an Escherichia coli urinary tract infection complicated by right- sided hydronephrosis. The patient had placement yesterday of a double-J stent by Dr. Gonzalez. MEDICATIONS: Currently, the patient is taking Ancef in a dose of 1 g IV every 12 hours. The dose has been modified because of the patient's end-stage renal disease. PHYSICAL EXAMINATION: Vital Signs: Temperature is 98.5 degrees, pulse 83, respirations 18, blood pressure 153/61. General: This is a somewhat ill-appearing, elderly female. She is in no acute distress. Lungs clear to auscultation. Cardiovascular: Heart rate is regular. Abdomen and Flanks: The right-sided abdominal and flank tenderness was less today and the patient said she has been experiencing less pain since placement of the stent. Lungs on the abdomen and flanks, less tender on the right side. Lungs: Clear to auscultation. Cardiovascular: Regular heart rate. LABORATORY DATA AND X-RAY: The CBC for today shows a white count of 8660, hemoglobin 8.8 and platelet count 289,000. Creatinine is 2. GFR is 25. ASSESSMENT AND PLAN: While the patient is in the hospital, I plan on continuing on Ancef. I printed up a prescription for Keflex 500 mg p.o. every 8 hours to complete a 6 -week-treatment course. The patient's comorbidity is that she has a neurogenic bladder and, previously, she did not follow instructions to catheterize herself 4 times a day. She did it only twice a day. I will be seeing the patient in my office later in approximately 3-4 weeks from discharge. cc: Maldonado Hernandez MD MTDD
[2016-11-18] MEDS: KEFZOL 1 GM/D5W 1 GM/50 ML IVPB IV SCH (10:53)
[2016-11-18 11:40] VITALS: BP 136/65
--- NOTE | 2016-11-19 17:01 | DISCHARGE SUMMARY ---
ADMISSION DATE: 11/11/2016 DISCHARGE DATE: 11/18/2016 FINAL DISCHARGE DIAGNOSES: 1. Right hydronephrosis, status post double-J stent placement. 2. Acute kidney injury on chronic kidney disease. 3. Neurogenic bladder. 4. Urinary tract infection secondary to Escherichia coli. 5. Vitamin D deficiency. 6. Anxiety disorder. 7. Metabolic encephalopathy. 8. Gastroesophageal reflux disease. 9. Hyponatremia. CONSULTATIONS REQUESTED DURING THIS HOSPITAL STAY: 1. Urology consultation with Shyam Gonzalez MD. 2. Infectious Disease consultation with Maldonado Hernandez MD HOSPITAL COURSE: Ms. Trujillo is a 66-year-old female, with a history of multiple medical problems, who initially presented to the ER with a chief complaint of fever, chills, and general malaise. On admission, the patient was noted to have a BUN of 30 and a creatinine of 2.8 , and also a urinary tract infection. The blood and urine cultures were obtained and the patient was started on broad-spectrum antibiotics. Given the patient's history of infection, ID was consulted and urology was also consulted. A renal CT was done that revealed right hydroureteronephrosis at the level of the urinary bladder. The patient was seen by the urologist and it was recommended that the patient have a Hardwick catheter placed and continued treatment for the urinary tract infection. The patient was treated with fluids and broad-spectrum antibiotics. Ultimately , the urine culture grew out Escherichia coli. The patient's creatinine continued to improve with IV fluids and Hardwick catheter decompression. On November 17, 2016, the patient was taken to the OR and underwent cystoscopy with double-J ureteral stent placement to the right. The patient did well following the procedure and had no complications. The patient continued to improve clinically and was transitioned to oral antibiotics by Dr. Maldonado Hernandez. The patient was ultimately cleared for discharge home on November 18, 2016. DISCHARGE MEDICATIONS: 1. Lactobacillus 1 tablet oral daily. 2. Ativan 0.5 mg p.o. at bedtime. 3. Flexeril 5 mg p.o. every 8 hours p.r.n. for muscle spasms. 4. Pravachol 40 mg p.o. daily. 5. Requip 5 mg p.o. at bedtime. 6. Prilosec 40 mg p.o. daily. 7. Calcium plus vitamin D 1 tablet oral daily. 8. Depakote 2000 mg p.o. at bedtime. 9. Vitamin D2 50,000 units oral once a week. 10. Cymbalta 120 mg p.o. daily. 11. Movantik 25 mg p.o. daily. 12. Compazine 10 mg p.o. 3 times a day p.r.n. for nausea. 13. Eliquis 5 mg p.o. twice a day. 14. [place] 7.5/325, one tab oral every 4 hours p.r.n. for pain. 15. Keflex 500 mg p.o. every 8 hours. DISCHARGE DIET: Low sodium, low cholesterol diet. ACTIVITY: As tolerated. FOLLOWUP INSTRUCTIONS: The patient will follow up with Dr. Gonzalez on 2016 at 10 a.m. The patient is also scheduled to followup with Dr. Vazquez on 12/13/2016. The patient will need to followup with Dr. Maldonado Hernandez in 3 weeks. cc: Janessa Owens MD MTDD
== END 2016-11-18 12:07 | disposition home health service (06) ==
LOC: SUPCPDRO → ED 12:23 → SUATTDRO 17:59 → 4N 17:59
PROVIDERS: ATTEND Internal Medicine

== ENCOUNTER 2016-12-15 12:31 | Inpatient (IN) ==
--- NOTE | 2016-12-15 13:16 | EKG Report ---
Test Performed on : 12/15/2016 12:31:49 PM Test Reason : AMS Blood Pressure : / mmHG Vent. Rate : 089 BPM Atrial Rate : 089 BPM P-R Int : 136 ms QRS Dur : 086 ms QT Int : 344 ms P-R-T Axes : 063 009 046 degrees QTc Int : 418 ms Normal sinus rhythm. Normal ECG When compared with ECG of 12-NOV-2016 06:26, T wave amplitude has increased in Anterolateral leads Unconfirmed Result
[2016-12-15 13:35] LABS: INR 1.02; PROTIME 10.7 Seconds (9.2-11.7); PTT 30.1 Seconds (22.0-36.0)
[2016-12-15 13:36] LABS: BASO% 0.2 % (0.0-0.8); EOS# 0.07 X1000 (0.0-0.7); EOS% 0.7 % (0.0-10.0); HEMATOCRIT 27.6 % (37.0-47.0); HEMOGLOBIN 9.1 g/dL (12.0-16.0); LYMPH# 1.72 X1000 (1.2-3.4); LYMPH% 16.2 % (20.5-51.1); MANUAL DIFF NEEDED? NO; MCH 34.3 PG (27-31); MCV 104.2 FL (81-99); MONO# 0.99 X1000 (0.11-0.59); MONO% 9.3 % (1.7-9.3); MPV 10.4 FL (7.4-10.4); NEUT% 73.6 % (42.2-75.2); PLT 189 X1000 (130-400); RBC 2.65 XMIL (4.2-5.4)
[2016-12-15 13:47] LABS: ALBUMIN 3.3 g/dL (3.5-5.0); CALCIUM 8.8 mg/dL (8.8-10.2); POTASSIUM 3.8 mmol/L (3.5-5.1); TOTAL BILIRUBIN 0.17 mg/dL (0.20-1.00); TOTAL PROTEIN 6.1 g/dL (6.3-8.3)
[2016-12-15 15:24] LABS: URINE SOURCE CLEAN CATCH
[2016-12-15 15:29] LABS: BILIRUBIN URINE NEGATIVE (NEGATIVE); BLOOD URINE MODERATE (NEGATIVE); COLOR YELLOW; GLUCOSE URINE NEGATIVE (NEGATIVE); LEUKOCYTES URINE LARGE (NEGATIVE); NITRITE URINE POSITIVE (NEGATIVE); PH URINE 6.5; PROTEIN URINE 100 mg/dL (NEGATIVE); SP GRAVITY URINE 1.004; TURBIDITY URINE TURBID (CLEAR); UROBILINOGEN URINE NORMAL (NORMAL)
[2016-12-15 15:30] LABS: URINE MICRO REVIEW NEEDED? YES
[2016-12-15 15:32] LABS: UR EPITHELIAL CELLS <10 /HPF (<10); URINE BACTERIA 2+ /HPF; URINE CULTURE NEEDED? YES; URINE RBC <10 /HPF (<10); URINE WBC TNTC /HPF (<10)
[2016-12-15 15:41] LABS: URINE CASTS NONE SEEN; URINE CRYSTALS NONE SEEN; URINE SMALL ROUND CELLS NONE SEEN
[2016-12-15 15:44] LABS: UR AMPHETAMINES QUAL NONE DETECTED (NONE DETECT); UR BARBITUATES QUAL NONE DETECTED (NONE DETECT); UR BENZODIAZEPIN QUAL NONE DETECTED (NONE DETECT); UR CANNABINOIDS QUAL NONE DETECTED (NONE DETECT); UR COCAINE QUAL NONE DETECTED (NONE DETECT); UR METHADONE QUAL NONE DETECTED (NONE DETECT); UR OPIATES QUAL NONE DETECTED (NONE DETECT); UR OXYCODONE QUAL NONE DETECTED (NONE DETECT); UR PCP QUAL NONE DETECTED (NONE DETECT)
[2016-12-15] MEDS ORDERED: ROCEPHIN 1 GM/NS 1 GM/50 ML IVPB IV ONE (15:51)
[2016-12-15] MEDS ORDERED: MAXIPIME 1 GM/NS 1 GM/50 ML IVPB IV ONE (17:06)
--- NOTE | 2016-12-15 17:13 | Diag Imaging Result Doc PS360 ---
EXAM: US RENAL 2 (RETROPER) COMPLETE HISTORY: hydronephrosis TECHNIQUE: COMPARISON: 11/15/2016 FINDINGS: The right kidney measured 12.0 x 5.6 x 5.3 cm. Normal renal echotexture and cortical thickness. No renal stones or hydronephrosis. No renal mass. The left kidney measures 12.2 x 5.5 x 5.6 cm. Normal renal echotexture and cortical thickness. No renal stones or hydronephrosis. No renal mass. The urinary bladder is only minimally distended. IMPRESSION: Normal renal ultrasound. Electronically signed by Kevin Arvizu 12/15/2016 5:11 PM
[2016-12-15] MEDS ORDERED: MYCAMINE 100 MG in NS 100 ML IV SCH ×2 (17:15→18:00)
[2016-12-15] MEDS ORDERED: ZOFRAN IV PRN (17:19)
--- NOTE | 2016-12-15 18:00 | HISTORY AND PHYSICAL ---
PRIMARY CARE PHYSICIAN: Dr. Verma. NEPHROLOGY: Dr. Vazquez. UROLOGIST: Dr. Gonzalez. PRESENTING COMPLAINT: Altered mental status and generalized weakness. HISTORY OF PRESENTING COMPLAINT: Ms. Trujillo is a 66-year-old female, who has been in and out of the hospital for the past couple months. She was just recently discharged over here on 11/18/2016 apparently for a UTI. Was sent home on Keflex for 60 days. Patient followed up with Dr. Hernandez. I understand she just finished the medications however she said that for the past couple of days she has been declining. She has been having generalized weakness , nausea and vomiting and for the past 2 days she is having altered mental status, talking out of her head and addressing people that are not there so the sister decided to bring her to the emergency department. Of note, patient had a right J stent placed in by Dr. Gonzalez on the 11/17/2016. Patient also has a home health agency that checks on her and she has to be doing self- catheterizations on daily basis about 3-4 times per day. PAST MEDICAL HISTORY: 1. Double-J stent placed in the right ureter in October 2016. 2. Hypertension. 3. Irritable bowel syndrome. 4. Depression. 5. Frequent UTIs. 6. CKD stage 3B. PAST SURGICAL HISTORY: 1. Stent placement. 2. Cholecystectomy. 3. Exploratory laparotomy. 4. Hysterectomy. 5. Total hip replacement. 6. Neck surgery. 7. Breast reduction. SOCIAL HISTORY: Patient smokes about a half a pack a day for the past 20 years. Denies any alcohol. Lives by herself but her sister lives just a house away and she has a home health agency checking on her as well. REVIEW OF SYSTEMS: A 14 point review of system conducted with the patient. None significant except what we have in the HPI. Specifically, patient denies fever and chills. Has positive weight loss and poor appetite. No chest pain. No shortness of breath. No abdominal pain. No diarrhea. Vitals: Blood pressure is currently 136/45, pulse of 89, respirations 20, temperature 97.6 degrees. Patient is saturating 100% on room air. General Exam: Ms. Trujillo is a 66-year- old female. She looks emaciated. She is in bed, chronically ill. Looks chronically sick. Mucosa is slightly dry. Anicteric and acyanotic. Neck: Supple. There is no JVD. Chest: Good air entry bilateral. No crepitations. No rhonchi and no accessory muscle use. Cardiovascular: Regular rate and rhythm. No murmurs, no rubs. No gallops. Abdomen: Soft. Distended. No hepatosplenomegaly. Bowel sounds are present. There is an old epigastric supraumbilical surgical scar. Extremities: No pedal edema. Distal pulses are present. INSURANCE AND FINANCIAL SERVICES AGENT: Patient is awake, alert, oriented x4. Executive function seems to be intact. Motor about 4/5 which is generalized. No sensory deficits. Cranial nerves 2-12 have been grossly examined and they are unremarkable. Did not examine the gait or cerebellar function. LABORATORY DATA: WBC is 10.62, hemoglobin is 9.1, platelet count of 189,000. Sodium is 126, potassium is 3.8, chloride is 89, bicarb is 25, BUN is 26, creatinine is 1.9. Review of microbiology data. In September 2016 patient had a urine positive for E. coli. 11/11/2016 it was still positive for E. coli however 12/06/2016 there is a urine catheterized sample which has grown Pseudomonas aeruginosa and Enterobacter cloacae species. Urinalysis: Blood is moderate. Nitrate is positive. Leukocyte is large, too numerous to count WBC, less than 10 RBC, bacteria 2+. Urine yeast like cells present. ASSESSMENT: Ms. Trujillo is a 66-year-old female, with frequent UTIs, self- catheterization at home due to underlying neurogenic bladder presented to the emergency department because of altered mental status with a very dirty urine. We think she has UTI. ASSESSMENT: 1. Altered mental status likely secondary to toxic encephalopathy from sepsis. 2. Sepsis secondary to complicated UTI. 3. History of double-J stent in the right ureter. 4. Recent urine culture positive for Pseudomonas aeruginosa and Enterobacter cloacae species and current urinalysis also having yeast like cells. 5. Generalized weakness and deconditioning. 6. Neurogenic bladder with overflow incontinence with daily self- catheterizations. 7. Active tobacco abuse. 8. Macrocytic anemia. 9. CKD stage 3B to 4. So in general we are going to admit Ms. Trujillo to medical floor with tele. We are going to hydrate her with normal saline at about 100 mL/h. We will start her on cefepime to cover for both the Pseudomonas and the Enterobacter and will also put her on micafungin for the yeast like in the urine since patient has a stent in the bladder. We are afraid this could potentially be infected by the yeast as well. We will do thyroid studies, B12 and folate to check on the macrocytosis. We will consult Urology and Nephrology and also ID. The patient has been coming in and out of the hospital and she seems to have very hard access and since she has this underlying neurogenic bladder and has been having on and off antibiotics I think we need to secure her a permanent line like a port so it can be accessed at any time. I would therefore consult Surgery to evaluate the patient for port placement once the blood cultures have been negative. cc: Rom Mckinney MD MTDD
[2016-12-15] MEDS: LOVENOX SUBQ SCH (18:34)
[2016-12-15] MEDS: NS 1,000 ML IV SCH (18:35)
[2016-12-15 19:57] LABS: VITAMIN D 25 HYDROXY 47.8 NG/DL
--- NOTE | 2016-12-15 20:04 | PROVIDER DOCUMENTATION ---
This chart was entered by Divine Boggs Scribe, acting as scribe for Jeffy Ji MD. HPI-General Adult - General Chief Complaint: Altered Mental Status Stated Complaint: AMS,WEAKNESS Time Seen by Provider: 12/15/16 15:04 Source: patient Allergies/Adverse Reactions: Patient Allergies Allergy/AdvReac Type Severity Reaction Status Date / Time olanzapine [From Zyprexa] AdvReac Unknown Verified 10/13/16 12:58 Home Medications: Home Medication List Medication Instructions Recorded Confirmed Last Taken Type PRAVAstatin [Pravachol] 40 mg PO DAILY 09/23/15 12/15/16 12/14/16 History 40mg Ropinirole HCl 5 mg PO HS 09/23/15 12/15/16 12/14/16 History 5mg Ca Citrate/Vit D3 [Citracal-Vit D 1 tab PO DAILY 08/06/16 12/15/16 12/14/16 History 200 mg-250] 1tab Divalproex Sodium [Depakote] 2,000 mg PO QHS 08/06/16 12/15/16 12/14/16 History 2000mg Ergocalciferol (Vitamin D2) 50,000 unit PO DIRECTED 08/06/16 12/15/16 History [Vitamin D2] [id number] Omeprazole [Prilosec] 40 mg PO DAILY 08/06/16 12/15/16 12/14/16 History 40mg Albuterol 2.5MG/Ipratrop 0.5MG 3 ml INH Q4H PRN PRN #0 neb 08/09/16 12/15/16 Rx [Duoneb (A & A)] Duloxetine [Cymbalta] 120 mg PO DAILY #60 capsule 08/22/16 12/15/16 12/14/16 Rx 120mg Apixaban [Eliquis] 5 mg PO BID 10/11/16 12/15/16 12/14/16 History 5mg Naloxegol Oxalate [Movantik] 25 mg PO DAILY 10/11/16 12/15/16 12/14/16 History 25mg [place]-3 Acid Ethyl Esters [Lovaza] 1 gm PO 4XDAY 10/11/16 12/15/16 12/14/16 History 1gm Prochlorperazine [Compazine] 10 mg PO TID PRN PRN 10/11/16 12/15/16 12/14/16 History 10mg Hydrocodone/Acetaminophen [[place] 1 each PO Q4H PRN PRN #10 tablet 10/13/1612/1512/14/16 Rx 7.5-325 Tablet] 7.5mg Cephalexin [Keflex] 500 mg PO Q8H #60 capsule 11/15/16 12/15/16 12/14/16 Rx 500mg Cyclobenzaprine HCl [Flexeril] 5 mg PO Q8H PRN #30 tablet 11/18/16 12/15/16 Rx 5mg Lactobacillus Rhamnosus GG 1 each PO DAILY #30 capsule 11/18/16 12/15/16 Rx [Culturelle] 1 Lorazepam [Ativan] 0.5 mg PO QHS #30 tablet 11/18/16 12/15/16 12/14/16 Rx 0.5 - History of Present Illness -Gen Adult Nature of Presenting Problems: PT is a 66 year old female who came to the ED with a cc of feeling like she has a UTI and has to self cath. Pt reports she is unable to get much urine out. Pt is weak and ill feeling. Location of Pain/Injury: reports: abdomen Pain Radiation: reports: no radiation Quality of Pain: reports: cramping Severity: reports: mild Onset/Duration: reports: unsure Timing: reports: still present Associated Symptoms: reports: weakness Similar Symptoms Previously?: Yes Recently seen or treated by another doctor?: Yes Review of Systems - Adult - REVIEW OF SYSTEMS - ADULT Constitutional: reports: weight loss. denies: chills, fever Eyes: reports: no symptoms reported Ears, Nose, Mouth & Throat: reports: no symptoms reported Cardiovascular: reports: no symptoms reported Respiratory: reports: no symptoms reported Gastrointestinal: reports: abdominal pain. denies: diarrhea, nausea, vomiting Genitourinary: reports: frequent UTI's, urinary retention. denies: hematuria, hesitency, urgency Musculoskeletal: reports: no symptoms reported Integumentary: reports: no symptoms reported Neurological: reports: no symptoms reported Psychiatric: reports: no symptoms reported Endocrine: reports: no symptoms reported Hematologic/Lymphatic: reports: no symptoms reported Allergic/Immunologic: reports: no symptoms reported All Other Systems: Reviewed and Negative Past History - Adult - PAST MEDICAL HISTORY-ADULT Review of Records: reports: Old Records Reviewed, Nursing Assessment Review Major Childhood Illnesses: reports: denies history Cardiovascular: reports: HTN, hyperlipidemia Respiratory: reports: denies history Gastrointestinal: reports: GERD, IBS Obstetrical/Gynecological: reports: denies history Genitourinary: reports: kidney disease Musculoskeletal: reports: denies history Neurological: reports: denies history Psychiatric: reports: bipolar, depression Endocrine/Immune: reports: denies history Other Conditions: reports: denies history - PRIOR SURGERIES/PROCEDURES Surgical/Procedure History: reports: cholecystectomy, hysterectomy, joint replacement (L total hip), back/neck - IMMUNIZATION STATUS Childhood Immunizations: See Nurse Assessment Flu Vaccine: See Nurse Assessment - FAMILY HISTORY Family History: reviewed, not pertinent Physical Exam-General - CONSTITUTIONAL General Appearance: alert, mild distress, cachetic, other (marked temporal wasting) - EYES Eyes: PERRL/EOMI, pink conjunctivae - HEAD, EARS, NOSE, MOUTH & THROAT HENMT: normocephalic/atraumatic, moist mucous membranes - NECK Neck: non-tender, full range of motion - RESPIRATORY Respiratory: chest non-tender, lungs clear, normal breath sounds - CARDIOVASCULAR Cardiovascular: normal peripheral pulses, regular rate, rhythm - GASTROINTESTINAL (ABDOMEN) Abdominal Exam: distended, tenderness (RLQ) - MUSCULOSKELETAL Back Exam: CVA tenderness (right) Extremity: normal range of motion, non-tender, normal gait - SKIN Integumentary: normal color, normal turgor - NEUROLOGIC Neurologic: grossly normal - PSYCHIATRIC Psych/Mental Status: normal mood/affect, normal thought content, normal thought process, oriented x 3 Progress - PLAN OF CARE/RESULTS Progress/Plan/Lab Results: Vital Signs - 8 hr 12/15/16 12:40 Temperature 97.6 F Pulse Rate 89 Respiratory Rate 20 Blood Pressure 136/45 O2 Sat by Pulse Oximetry 100 Laboratory Results - last 24 hr 12/15/16 12/15/16 12/15/16 12:54 12:54 12:54 WBC 10.62 RBC 2.65 L Hgb 9.1 L Hct 27.6 L MCV 104.2 H MCH 34.3 H MCHC 33.0 RDW Std Deviation 14.0 Plt Count 189 MPV 10.4 Neut % (Auto) 73.6 Lymph % (Auto) 16.2 L [place] % (Auto) 9.3 Eos % (Auto) 0.7 Baso % (Auto) 0.2 Neut # (Auto) 7.82 H Lymph # (Auto) 1.72 [place] # (Auto) 0.99 H Eos # (Auto) 0.07 Baso # (Auto) 0.02 PT INR PTT (Actin FS) Sodium 126 L Potassium 3.8 Chloride 89 L Carbon Dioxide 25 Anion Gap 12 BUN 26 H Creatinine 1.9 H Estimated GFR/1.73 m2 27 BUN/Creatinine Ratio 14 Glucose 88 Calculated Osmolality 258 Calcium 8.8 Total Bilirubin 0.17 L AST 10 ALT 15 Alkaline Phosphatase 97 Creatine Kinase 10 L Troponin T Total Protein 6.1 L Albumin 3.3 L Globulin 2.8 Albumin/Globulin Ratio 1.2 Plasma/Serum Ethyl Alc 12/15/16 12/15/16 12:54 12:54 WBC RBC Hgb Hct MCV MCH MCHC RDW Std Deviation Plt Count MPV Neut % (Auto) Lymph % (Auto) [place] % (Auto) Eos % (Auto) Baso % (Auto) Neut # (Auto) Lymph # (Auto) [place] # (Auto) Eos # (Auto) Baso # (Auto) PT 10.7 INR 1.02 PTT (Actin FS) 30.1 Sodium Potassium Chloride Carbon Dioxide Anion Gap BUN Creatinine Estimated GFR/1.73 m2 BUN/Creatinine Ratio Glucose Calculated Osmolality Calcium Total Bilirubin AST ALT Alkaline Phosphatase Creatine Kinase Troponin T < 0.010 Total Protein Albumin Globulin Albumin/Globulin Ratio Plasma/Serum Ethyl Alc Orders Category Date Time Status ALCOHOL BLOOD Stat Lab 12/15/16 12:54 Completed CBC WITH ELECTRONIC DIFF [HEME] Stat Lab 12/15/16 12:54 Completed CK PROFILE [SP CHEM] Stat Lab 12/15/16 12:54 Completed COMPREHENSIVE METABOLIC PANEL [CHEM] Stat Lab 12/15/16 12:54 Completed PROTIME WITH INR [COAG] Stat Lab 12/15/16 12:54 Completed PTT [COAG] Stat Lab 12/15/16 12:54 Completed TROPONIN T Stat Lab 12/15/16 12:54 Completed URINALYSIS W/POSS RFLX CULT-1 [URINALYSIS] Stat Lab 12/15/16 12:46 Uncollected URINE DRUG SCREEN Stat Lab 12/15/16 12:46 Uncollected EKG [EKG] Stat Ther 12/15/16 12:46 Draft Result Diagrams: 12/15/16 12:54 12/15/16 12:54 Departure - Departure Date of Disposition Decision: 12/15/16 Time of Disposition Decision: 16:00 DIAGNOSIS: Septicemia Disposition: ADMITTED INPATIENT 09 Certified Medical Emergency: Emergent Condition: Stable - Critical Care Note This patient required my direct & personal management of CC.: No This chart was documented by the indicated scribe, (Divine Boggs Scribe) and accurately reflects the services I performed and decisions made by me, Jeffy Ji MD, as attested by the provider's signature.
[2016-12-15] MEDS: LOVAZA PO SCH (20:35)
[2016-12-15] MEDS: ATIVAN PO SCH (20:35)
[2016-12-15] MEDS: REQUIP PO SCH (20:35)
[2016-12-16] MEDS: MAXIPIME 1 GM/NS 1 GM/50 ML IVPB IV SCH ×2 (01:01→13:55)
[2016-12-16] MEDS: PRILOSEC PO SCH (06:25)
[2016-12-16 06:29] LABS: MANUAL DIFF NEEDED? NO
[2016-12-16 06:48] LABS: CALCIUM 8.8 mg/dL (8.8-10.2); INR 0.99; POTASSIUM 3.6 mmol/L (3.5-5.1); PROTIME 10.4 Seconds (9.2-11.7); TOTAL BILIRUBIN 0.17 mg/dL (0.20-1.00); TOTAL PROTEIN 6.6 g/dL (6.3-8.3)
[2016-12-16 06:51] LABS: BASO% 0.1 % (0.0-0.8); EOS# 0.13 X1000 (0.0-0.7); EOS% 1.7 % (0.0-10.0); HEMATOCRIT 27.9 % (37.0-47.0); HEMOGLOBIN 9.3 g/dL (12.0-16.0); IMM GRAN# 0.02 X1000 (0.0-0.04); IMM GRAN% 0.3 % (0.0-0.5); LYMPH% 17.8 % (20.5-51.1); MCH 33.7 PG (27-31); MCHC 33.3 g/dL (33-37); MCV 101.1 FL (81-99); MONO# 0.88 X1000 (0.11-0.59); MONO% 11.2 % (1.7-9.3); MPV 10.6 FL (7.4-10.4); NEUT% 68.9 % (42.2-75.2); PLT 212 X1000 (130-400); RBC 2.76 XMIL (4.2-5.4)
[2016-12-16] MEDS: CULTURELLE PO SCH (08:34)
[2016-12-16] MEDS: LOVAZA PO SCH ×4 (08:34→22:23)
[2016-12-16] MEDS ORDERED: PRAVACHOL PO SCH (09:00)
[2016-12-16 10:12] LABS: URINE MICRO REVIEW NEEDED? NO; URINE SOURCE CATH
[2016-12-16 10:16] LABS: BILIRUBIN URINE NEGATIVE (NEGATIVE); BLOOD URINE SMALL (NEGATIVE); COLOR STRAW; GLUCOSE URINE NEGATIVE (NEGATIVE); LEUKOCYTES URINE LARGE (NEGATIVE); NITRITE URINE NEGATIVE (NEGATIVE); PH URINE 6.5; PROTEIN URINE TRACE mg/dL (NEGATIVE); SP GRAVITY URINE 1.001; TURBIDITY URINE HAZY (CLEAR); UR EPITHELIAL CELLS <10 /HPF (<10); URINE BACTERIA 1+ /HPF; URINE CULTURE NEEDED? YES; URINE RBC <10 /HPF (<10); URINE WBC TNTC /HPF (<10); UROBILINOGEN URINE NORMAL (NORMAL)
--- NOTE | 2016-12-16 14:04 | CONSULTATION ---
DATE OF CONSULTATION: 12/15/2016 ATTENDING AND REFERRING PHYSICIAN: Hospitalist. HISTORY OF PRESENT ILLNESS: This 66-year-old female with multiple medical problems has a neurogenic bladder and urinary retention. She is supposed to be on self catheterization 4 times a day. She states she cannot do that. She was admitted with mental status changes. She has a history of bipolar disorder and is probably in a depressive phase of her bipolar disorder. The patient has chronic renal insufficiency and her baseline creatinine is 1.8-2. Her creatinine is 1.8 at admission. The patient states she would just like to have a Hardwick catheter. PAST MEDICAL HISTORY: Bipolar disorder. Hypertension. Irritable bowel syndrome. Chronic kidney disease. Chronic pancreatitis. Neurogenic bladder with urinary retention. CURRENT MEDICATIONS: Documented on the chart. PAST SURGICAL HISTORY: Cholecystectomy. Exploratory laparotomy. Hysterectomy. Hip arthroplasty. Cervical disk surgery. Breast reduction. SOCIAL HISTORY: Cigarettes: 1/2 to 1 pack a day for over 20 years. ETOH use negative. ALLERGIES: She is allergic to olanzapine. REVIEW OF SYSTEMS: She denies any problems with diabetes, strokes, or seizures. She does have gastroesophageal reflux disease and restless legs syndrome. PHYSICAL EXAMINATION: General: A thin, age apparent, normally developed, white female, who is cooperative. HEENT: Normal for age. Lungs: Clear. Cardiovascular: Regular rate and rhythm. Abdomen: Mildly protuberant soft, nontender. No hepatosplenomegaly or masses. Normal bowel sounds. She does wear a diaper because she states she leaks all the time which is probably overflow incontinence. : On 17 November, revealed normal external female. Atrophic mucosa and no adnexal masses. Palpably normal bladder. Surgically absent cervix and uterus. Extremities: No clubbing, cyanosis, or edema. Neurologic: No focal deficits. IMPRESSION: 1. Neurogenic bladder with urinary retention. Again discussed with patient that if she does not keep her bladder at 350 mL or less she has increased risk of urinary infections. She states she cannot do self catheterization which means she needs a chronic indwelling Hardwick catheter. 2. Bipolar disorder, probably in a depressive phase. 3. Anemia that appears chronic, but her hemoglobin and hematocrit are lower at this admission than previous admissions. Recommend: 1. Place Hardwick catheter. She will have to be discharged with the Hardwick catheter and after she stabilizes mentally, we will we discuss placement of a suprapubic tube. 2. anemia workup. cc: Shyam Gonzalez MD MTDD
[2016-12-16] MEDS: CUBICIN IV SCH (14:36)
[2016-12-16] MEDS: NS IV SCH (14:36)
--- NOTE | 2016-12-16 14:38 | PROGRESS NOTE ---
DATE: 12/16/2016 SUBJECTIVE: Today, Ms. Trujillo refers to be doing a whole lot better. She has already been evaluated by Dr. Gonzalez. OBJECTIVE: Vital signs: Blood pressure is 145/57, pulse of 87, respiration is 21, temperature 98 degrees. General: Ms. Trujillo is a 66-year-old female. She is in bed , does not seem to be in any distress. HEENT: Mucosa is pink and moist. Anicteric. Acyanotic. Neck: Supple. Chest: Good air entry bilateral. No crepitations. No rhonchi. Cardiovascular : Regular rate and rhythm. Abdomen: Her abdomen is soft. There is an old epigastric surgical scar. Bowel sounds are present. Extremities: No pedal edema. Distal pulses are present. COSMETICIAN APPRENTICE: Patient is awake, alert and oriented. There is no focal neurological deficit. The patient also has a Hardwick catheter in place now. LABORATORY DATA: WBC is 7.86, hemoglobin is 9.3, platelet count of 212,000. Chemistry is reviewed. Sodium is 131. Potassium is 3.6, chloride is 95, bicarbonate is 23, creatinine is down to 1.8. Urine culture so far is growing gram-negative rods which I think is probably going to be the same pseudomonas. ASSESSMENT: 1. Altered mental status on presentation likely due to toxic encephalopathy from sepsis improving. 2. Complicated urinary tract infection. 3. History of double-J stent in the right ureter. 4. Gram-negative neelam urinary tract infection. We will still be waiting on the ID and sensitivity. I presume this is probably the same Pseudomonas aeruginosa and/ or Enterobacter cloacae from the last cultures. 5. Generalized weakness and deconditioning. 6. Neurogenic bladder with overflow incontinence. The patient was doing self- catheterizations at home but she was having issues. Urology has evaluated the patient. They have made a decision to put in a permanent indwelling catheter. 7. Active tobacco abuse. Patient has been counseled. 8. Macrocytic anemia. So far, B12 and folate and TSH have all been normal. I think the patient will probably need to be evaluated more thinking about possibly a bone marrow but we will defer this for outpatient workup with an utilities equipment repairer/oncologist. 9. Chronic kidney disease stage IIIB. Creatinine is relatively stable. Slightly improved and patient is making adequate urine output. PLAN: In general, I think Ms. Trujillo is doing fine. So far, there is 1 blood culture that is gram-positive cocci but I think it is 1 out of 2 and I think it is probably a contamination. We will however wait for the ID. The patient clinically looks a whole lot better so I think her issue is more related to her tract. She has yet to be seen by Infectious disease. We will continue with the current antibiotics and fluids. Once the blood cultures have been completely negative, I thing we will consult surgery for a port placement. cc: Rom Mckinney MD MTDD
--- NOTE | 2016-12-16 14:57 | PROGRESS NOTE ---
DATE: 12/16/2016 PRESENT ILLNESS: The patient was admitted to the hospital because of symptomatic urinary tract infection. In addition, she has a positive blood culture for a gram positive coccus. This is present in only 1 set of blood cultures out of 2. MEDICATIONS: Patient is on cefepime in a dose reduced because of the patient's chronic kidney disease. I have started micafungin also for the patient's positive blood culture. The dose of daptomycin also has been modified because of the patient's renal insufficiency. In addition, I have discontinued Pravachol because it can act along with daptomycin to increase the risk of muscle toxicity. PHYSICAL EXAMINATION: Vital Signs: Temperature is 98 degrees, pulse 87, respirations 21, blood pressure 145/57. General: This is an ill-appearing, elderly female. She is in no acute distress. In general she is very weak now and has an altered mental status namely she has a decrease in her memory and also she was confused. Lungs: Clear to auscultation. Cardiovascular: Regular heart rate. Abdomen: Soft and nontender. Pelvic Exam: The patient has a Hardwick catheter in place. Neurologic: As mentioned above, the patient had decreased memory and was confused. She moved her extremities to request. There was no tremor. ASSESSMENT AND PLAN: I agree that the patient has urinary tract infection and it may well be causing her symptoms of generalized weakness and altered mental status. She also has 1 set of blood cultures positive for gram positive cocci. This may be a contaminant or it could be a pathogen and it too could be contributing to the patient's weakness and altered mental status. COMORBIDITIES: Include she is elderly. She has chronic kidney disease. She is a cigarette smoker. She does have a stent in her right ureter. LAB AND X-RAY: The patient's CBC shows a white count of 7860, hemoglobin 9.3, and platelet count 212,000. Creatinine is 1.8. The GFR is 28. One of 2 blood cultures is growing gram positive cocci. Liver function studies are normal. Urinalysis showed white cells and bacteria. Urine culture is growing a gram-negative neelam. Renal ultrasound was normal. cc: Maldonado Hernandez MD
[2016-12-16] MEDS: NS 1,000 ML IV SCH ×2 (17:28→17:30)
[2016-12-16] MEDS: LOVENOX SUBQ SCH (18:57)
[2016-12-16] MEDS: REQUIP PO SCH (22:23)
[2016-12-16] MEDS: ATIVAN PO SCH (22:23)
[2016-12-17] MEDS: MAXIPIME 1 GM/NS 1 GM/50 ML IVPB IV SCH (01:05)
[2016-12-17] MEDS: NS 1,000 ML IV SCH ×2 (04:51→14:31)
[2016-12-17] MEDS: PRILOSEC PO SCH (06:19)
[2016-12-17 07:20] LABS: BASO% 0.3 % (0.0-0.8); EOS# 0.24 X1000 (0.0-0.7); EOS% 3.1 % (0.0-10.0); HEMATOCRIT 25.4 % (37.0-47.0); HEMOGLOBIN 8.8 g/dL (12.0-16.0); LYMPH# 1.96 X1000 (1.2-3.4); LYMPH% 25.3 % (20.5-51.1); MANUAL DIFF NEEDED? NO; MCH 34.8 PG (27-31); MCHC 34.6 g/dL (33-37); MCV 100.4 FL (81-99); MONO% 10.3 % (1.7-9.3); MPV 10.5 FL (7.4-10.4); PLT 213 X1000 (130-400); RBC 2.53 XMIL (4.2-5.4)
[2016-12-17 07:36] LABS: CALCIUM 8.6 mg/dL (8.8-10.2); POTASSIUM 3.2 mmol/L (3.5-5.1)
[2016-12-17] MEDS ORDERED: MAGNESIUM SULFATE 2 GM/S.W.I. 2 GM/50 ML IVPB IV ONE (08:12)
[2016-12-17] MEDS ORDERED: KLOR-CON PO ONE (08:12)
[2016-12-17 08:49] LABS: IRON SATURATION 26 %; TIBC 185 ug/dL; TOTAL IRON 48 ug/dL (49-151); UNBOUND IRON 137 ug/dL (112-346)
[2016-12-17] MEDS: CULTURELLE PO SCH (08:54)
[2016-12-17] MEDS: LOVAZA PO SCH ×4 (08:54→21:01)
--- NOTE | 2016-12-17 09:12 | PROGRESS NOTE ---
DATE: 12/16/2016 ADDENDUM: As regarding placement of a Port-A-Cath, I had discussed that with the patient because she frequently needs IV access and I think a Port-A-Cath would be the ideal catheter. Because the patient has symptomatic urinary tract infection and especially because she may have a bacteremia I think that we should not put in the Port-A-Cath during this admission. cc: Maldonado Hernandez MD
[2016-12-17] MEDS ORDERED: CALMOSEPTINE OINTMENT TOP PRN (12:10)
[2016-12-17] MEDS: KEFZOL 1 GM/D5W 1 GM/50 ML IVPB IV SCH ×2 (12:18→21:02)
--- NOTE | 2016-12-17 14:35 | PROGRESS NOTE ---
DATE: 12/17/2016 SUBJECTIVE: I saw Ms. Trujillo today, early this morning. The sister was at the bedside at the time of the encounter. She refers to be doing a lot better. OBJECTIVE: Vital Signs: Blood pressure is 165/66, respiration is 17, pulse of 71, temperature 98.8 degrees. Patient was saturating 98% on room air. General: Ms. Trujillo is a 66-year-old female. She is in bed, not seemingly distressed. HEENT: Mucosa is pink and moist. Anicteric. Acyanotic. Neck is supple. Chest was clear. Cardiovascular: Regular rate and rhythm. Abdomen is soft. There is old epigastric surgical scar. Bowel sounds are present. There is no hepatosplenomegaly. Extremities: No pedal edema. Distal pulses are present. SOLUTIONS DELIVERY CONSULTANT: Patient is awake, alert, and oriented x4. There is no focal neurological deficit. LABORATORY DATA: WBC 7.76. Hemoglobin is 8.8, platelet count of 213,000. Chemistry is reviewed. Sodium is 132, potassium is 3.2, chloride 95, bicarb is 23. Creatinine is down to 1.5 coming from 1.9. Iron panel is normal. ASSESSMENT: 1. Altered mental status on presentation due to toxic encephalopathy from sepsis , a lot better. 2. Escherichia coli-induced urinary tract infection. 3. History of double-J stent in the right ureter. 4. Generalized weakness and deconditioning. 5. Neurogenic bladder with overflow incontinence. Patient has now indwelling catheter and urology has recommended to keep that in until she is seen as outpatient. 6. Active tobacco abuse. Patient has been counseled. 7. Macrocytic anemia. So far, B12, folate, TSH are all normal. Patient has been advised to follow up with Hematology/Oncology on an outpatient basis. 8. [id number] kidney disease, stage 3B. Creatinine seems to be gradually improving. 9. Gram-positive cocci in blood /2. I think this is a contamination. Today, we have the report of the urine culture. We will, therefore, go ahead and we know it is E. coli, and it is sensitive to cefazolin. We will, therefore, go ahead and discontinue the cefepime, switch the patient to Ancef with the hopes to use oral cephalexin to complete the course of therapy. We will be pending the official gram-positive cocci ID to see if she needs any further workup. cc: Rom Mckinney MD MTDD
[2016-12-17] MEDS: CUBICIN IV SCH (14:53)
[2016-12-17] MEDS: NS IV SCH (14:53)
[2016-12-17] MEDS: LOVENOX SUBQ SCH (17:44)
[2016-12-17] MEDS: ATIVAN PO SCH (21:01)
[2016-12-17] MEDS: DESYREL PO SCH (21:02)
[2016-12-17] MEDS: REQUIP PO SCH (21:02)
[2016-12-18] MEDS: NS 1,000 ML IV SCH ×3 (01:10→21:29)
[2016-12-18] MEDS: KEFZOL 1 GM/D5W 1 GM/50 ML IVPB IV SCH ×3 (04:07→19:23)
[2016-12-18] MEDS: PRILOSEC PO SCH (06:29)
[2016-12-18 06:48] LABS: MANUAL DIFF NEEDED? NO
[2016-12-18 07:06] LABS: BASO% 1.2 % (0.0-0.8); EOS# 0.32 X1000 (0.0-0.7); EOS% 3.4 % (0.0-10.0); HEMATOCRIT 27.4 % (37.0-47.0); HEMOGLOBIN 9.5 g/dL (12.0-16.0); IMM GRAN# 0.06 X1000 (0.0-0.04); IMM GRAN% 0.6 % (0.0-0.5); LYMPH# 2.46 X1000 (1.2-3.4); LYMPH% 26.1 % (20.5-51.1); MCH 34.4 PG (27-31); MCHC 34.7 g/dL (33-37); MCV 99.3 FL (81-99); MONO# 0.89 X1000 (0.11-0.59); MONO% 9.4 % (1.7-9.3); MPV 10.4 FL (7.4-10.4); NEUT% 59.3 % (42.2-75.2); PLT 238 X1000 (130-400); RBC 2.76 XMIL (4.2-5.4)
[2016-12-18 07:33] LABS: CALCIUM 8.8 mg/dL (8.8-10.2); POTASSIUM 4.1 mmol/L (3.5-5.1)
[2016-12-18] MEDS: CYMBALTA PO SCH (08:41)
[2016-12-18] MEDS: CULTURELLE PO SCH (08:41)
[2016-12-18] MEDS: LOVAZA PO SCH ×4 (08:41→21:24)
[2016-12-18] MEDS ORDERED: BLISTEX MEDICATED BERRY LIP BALM TOP PRN (11:00)
[2016-12-18] MEDS: CUBICIN IV SCH (13:48)
[2016-12-18] MEDS: NS IV SCH (13:48)
--- NOTE | 2016-12-18 15:41 | PROGRESS NOTE ---
DATE: 12/18/2016 SUBJECTIVE: Today Ms. Trujillo referred to be doing a whole lot better. Denies any complaints. OBJECTIVE: Vital signs: Blood pressure is 164/67, respirations 21, pulse is 81, temperature is 97.6 degrees. General: Ms. Trujillo is a 66-year-old female. She is in bed, no distress. HEENT: Mucosa is pink and moist. Anicteric. Acyanotic. Neck: Supple. Chest: Clear. Cardiovascular: Regular rate and rhythm. Abdomen: Soft. There is an old epigastric scar. Bowel sounds are present. There is no hepatosplenomegaly. Extremities: No pedal edema. Distal pulses are present. KNUCKLE STRAP SEWER: Patient is awake and alert and oriented x4. There is no focal neurological deficit. LABORATORY DATA: WBC is 9.44, hemoglobin is 9.5, platelet count of 238,000. Chemistry is reviewed, unremarkable except for creatinine 1.5 which is at baseline. ASSESSMENT: 1. Altered mental status on presentation due toxic encephalopathy from sepsis. This has improved. 2. Escherichia coli induced urinary tract infection. Patient is currently on Ancef. 3. History of double J stent in the right ureter. 4. Generalized weakness and deconditioning. 5. Neurogenic bladder with overflow incontinence. Patient has indwelling Hardwick catheter and has been evaluated by Dr. Gonzalez. 6. Active tobacco abuse. Patient has been counseled. 7. Macrocytic anemia with normal B12 and folate and TSH. Patient will follow up with hematology/oncology on an outpatient basis. 8. Acute on chronic kidney disease stage 3B. The patient's creatinine is 1.5 which is at her baseline. 9. Gram-positive cocci in blood, 1/2 cultures. I think this is contamination. We will, however, repeat the blood cultures. If it comes back negative, we will discontinue the daptomycin. PLAN: So in general I think Ms. Trujillo is doing fine. We are pending the 2nd blood cultures. If those comes back negative, we will discontinue the daptomycin, switch the Ancef to cephalexin, and discharge the patient on oral antibiotics. We will, however, be waiting on ID to evaluate the patient for further recommendations. DISPOSITION: We will plan to discharge Ms. Trujillo within a day or 2. cc: Rom Mckinney MD
[2016-12-18] MEDS: LOVENOX SUBQ SCH (17:20)
[2016-12-18] MEDS: DESYREL PO SCH (21:23)
[2016-12-18] MEDS: ATIVAN PO SCH (21:23)
[2016-12-18] MEDS: REQUIP PO SCH (21:23)
[2016-12-19] MEDS: KEFZOL 1 GM/D5W 1 GM/50 ML IVPB IV SCH (03:40)
[2016-12-19 04:51] VITALS: BP 174/79
[2016-12-19] MEDS: PRILOSEC PO SCH (06:54)
[2016-12-19] MEDS: NS 1,000 ML IV SCH (07:54)
[2016-12-19] MEDS: CYMBALTA PO SCH (08:19)
[2016-12-19] MEDS: LOVAZA PO SCH ×2 (08:19→13:19)
[2016-12-19] MEDS: CULTURELLE PO SCH (08:19)
[2016-12-19] MEDS ORDERED: FIORICET PO PRN (10:31)
[2016-12-19] MEDS ORDERED: PNEUMOVAX 23 IM ONE (11:00)
[2016-12-19] MEDS ORDERED: KEFLEX PO SCH (21:00)
--- NOTE | 2016-12-20 07:13 | DISCHARGE SUMMARY ---
ADMISSION DATE: 12/15/2016 DISCHARGE DATE: 12/19/2016 PERTINENT PROCEDURES: Renal ultrasound was normal. CONSULTATIONS: 1. Dr. Shyam Gonzalez with Urology. 2. Dr. Maldonado Hernandez with Infectious Disease. DISCHARGE DIAGNOSES: 1. Altered mental status secondary to toxic encephalopathy from sepsis, improved. 2. Escherichia coli-induced urinary tract infection. The patient will be discharged on p.o. Keflex followed by Dr. Maldonado Hernandez. The patient has a Hardwick catheter that she will be discharged home on, and then she will follow up with Dr. Gonzalez for discussion of suprapubic catheter after discharge. 3. Generalized weakness and deconditioning. 4. Neurogenic bladder with overflow incontinence. The patient again has indwelling Hardwick catheter. Evaluated by Dr. Gonzalez. Will be discharged home with home health with her Hardwick catheter. Will follow up with Dr. Gonzalez. 5. Active tobacco abuse. Patient has been counseled daily about smoking cessation, as well as the means to quit. 6. Macrocytic anemia with normal B12 and folate and TSH. Follow up with Hematology/Oncology on an outpatient basis. 7. Acute on chronic kidney disease stage 3B. The patient's creatinine is at baseline at 1.5 stable. 8. Gram-positive cocci n 1 blood culture contamination. HOSPITAL COURSE: Briefly, Ms. Trujillo is a 66-year-old female who has been in and out of the hospital for the past couple of months. Recently discharged from [facility] on 11/18/2016 for UTI. She was sent home on Keflex for 60 days. She was followed by Dr. Hernandez. She recently finished with home medications. However, for the past couple of days she has been declining, having generalized weakness, nausea, vomiting, and for 2 days altered mental status talking out of her head and addressing people that were not there. She was brought to the ED where she was noted to have sepsis secondary to a complicated UTI. She was hydrated with normal saline, started on cefepime to cover for Pseudomonas and Enterobacter, as well as micafungin for the yeast in her urine since the patient has a stent in her bladder. They also did anemia studies for her microcytosis, well as a consult for Urology as well as Infectious Disease. She does have underlying neurogenic bladder. She has been on and off antibiotics. At some point in time when she is free of infection, they do feel like she will need a permanent port placed that could be accessed at any time. Dr. Gonzalez recommended Hardwick catheter placement that she will be discharged with. She will follow up with him and then they will discuss placement of a suprapubic tube. Her urine culture did grow out E. coli. Her antibiotics were changed. Her mentation has improved. Dr. Mckinney discussed the case with Dr. Hernandez. She will be discharged home today on p.o. antibiotics and Dr. Hernandez will discuss with the patient at a later date for a more permanent IV access. VITAL SIGNS: Temperature is 98.2 degrees, heart rate 86, respiration 17, blood pressure 174/79, O2 is 99% on room air. DISCHARGE DIET: Regular. DISCHARGE MEDICATIONS: 1. DuoNeb 3 mL inhaled q.4 hours p.r.n. 2. Eliquis 5 mg p.o. b.i.d. 3. Lorcet 1 each p.o. q.4 hours p.r.n. 4. Caltrate vitamin D 200 mg 250 one tab p.o. daily. 5. Keflex 500 mg p.o. q.8 hours. 6. Flexeril 5 mg p.o. q.8 hours p.r.n. 7. Depakote 2000 mg p.o. at bedtime. 8. Cymbalta 120 mg p.o. daily. 9. Vitamin D2 89700 units p.o. as directed. 10. Culturelle 1 each p.o. daily. 11. Ativan 0.5 mg p.o. at bedtime. 12. Movantik 25 mg p.o. daily. 13. Lovaza 1 g p.o. 4 times a day. 14. Prilosec 40 mg p.o. daily. 15. Pravachol 40 mg p.o. daily. 16. Compazine 10 mg p.o. t.i.d. p.r.n. 17. Ropinirole 5 mg p.o. at bedtime. 18. Trazodone 150 mg p.o. at bedtime. FOLLOW-UP: Ms. Trujillo is being discharged home. She will follow up with Dr. Shyam Gonzalez. She is being discharged home with home health and her Hardwick catheter. She will follow up with Dr. Verma in 1 week as well as Dr. Maldonado Hernandez. DISCHARGE TIME: 30 minutes. Dictated by VAN Borrero for Rom Mckinney MD cc: MD Dr. Bayron Nation
[2016-12-21] MEDS ORDERED: VITAMIN D PO SCH (09:00)
--- NOTE | 2017-02-27 12:13 | ED EKG INTERP ---
This chart was entered by Divine Boggs Scribe, acting as scribe for Juan Lambert MD. EKG Interpretation - EKG Time of EKG reading by physician:: 12:31 EKG Read and Signed by:: Juan Lambert EKG Interpretation (*Must complete 3 of following elements*): Normal Rate: 89 Rhythm: NSR Attestation - Physician/ PAULA Attestation The physician spent face to face time with patient:: Yes Advanced Practice Provider documentation review:: Supervising physician onsite and consulted in the evaluation and care of this patient. The physician did have a face to face encounter with the patient. This chart was documented by the indicated scribe, (Divine Boggs Scribe) and accurately reflects the services I performed and decisions made by me, Juan Lambert MD, as attested by the provider's signature.
== END 2016-12-19 14:52 | disposition home or self-care (01) ==
LOC: ED 12:31 → 3N 17:38
PROVIDERS: ATTEND Internal Medicine